=== PATIENT | male | born 1940 | race Caucasian/White ===

== ENCOUNTER 2018-03-31 11:17 | Inpatient (IN) | payer MEDICARE ==
[~2018-03-31] VITALS: Ht 175.3 cm; Wt 81.2 kg
[~2018-03-31 11:17] MED LIST: ASPI-983 PO; ASPI-999 PO; ATOR10TA66 PO; CYAN100015 SL; FOLI0.8C PO; METO-351 PO; MULT1TAB69 PO
[2018-03-31 12:00] VITALS: BP 116/82
--- OUTSIDE RECORDS SUMMARY | 2018-03-31 12:10 | XMS REPORT | Continuity of Care Document ---
Author Author [facility] Organization [facility] Address Unknown Phone Unavailable Allergies Active Description Code Type Severity Reaction Onset Reported/Identified Relationship to Patient Clinical Status Yes No Known Drug Allergies [id number] Drug Allergy Unknown N/A 01/21/2011 Medications There is no data. Problems Date Dx Coded Attending Type Code Diagnosis Diagnosed By 01/21/2011 Ot V16.0 FAMILY HX-GI MALIGNANCY 01/21/2011 Ot V58.69 OTH MED,LT, CURRENT USE 01/21/2011 Ot V76.51 SCREEN MAL NEOP-COLON 07/12/2015 Ot 722.10 07/12/2015 Ot 722.52 07/12/2015 Ot 719.46 07/13/2015 Ot 722.10 07/13/2015 Ot 722.52 07/13/2015 Ot 719.46 07/13/2015 Ot 722.10 07/13/2015 Ot 722.52 07/13/2015 Ot 719.46 08/29/2015 DILSHAD MÁRQUEZ MD, FACC FACP CCDS Ot I10 ESSENTIAL (PRIMARY) HYPERTENSION 08/29/2015 DILSHAD MÁRQUEZ MD, FACC FACP CCDS Ot I25.10 ATHSCL HEART DISEASE OF [place] CORONARY 08/29/2015 DILSHAD MÁRQUEZ MD, FACC FACP CCDS Ot 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[place] 08/29/2015 DILSHAD MÁRQUEZ MD, FACC FACP CCDS Ot R00.0 TACHYCARDIA, UNSPECIFIED 08/29/2015 DILSHAD MÁRQUEZ MD, FACC FACP CCDS Ot R91.8 OTHER NONSPECIFIC ABNORMAL FINDING OF [place] 08/29/2015 DILSHAD MÁRQUEZ MD, FACC FACP CCDS Ot Z79.899 OTHER SENIOR CARE (CURRENT) DRUG THERAPY 09/07/2015 DILSHAD MÁRQUEZ MD, FACC FACP CCDS Ot E78.0 09/07/2015 DILSHAD MÁRQUEZ MD, FACC FACP CCDS Ot E80.6 09/07/2015 YULISA MD FACC, ALI FACP CCDS Ot I10 09/07/2015 YULISA VEGA FAC, ALI FACP CCDS Ot R00.0 09/07/2015 YULISA VEGA FAC, ALI FACP CCDS Ot R74.8 09/07/2015 YULISA VEGA FAC, ALI FACP CCDS Ot I10 09/07/2015 YULISA VEGA FACC, ALI FACP CCDS Ot I25.10 09/07/2015 YULISA VEGA [facility], ALI FACP CCDS Ot I25.84 09/07/2015 UYLISA VEGA [facility], ALI FACP CCDS Ot R00.0 09/07/2015 YULISA VEGA [facility], ALI FACP CCDS Ot R91.8 09/07/2015 YULISA VEGA [facility], ALI FACP CCDS Ot Z79.899 09/26/2015 YULISA VEGA [facility], ALI FACP CCDS Ot E78.0 09/26/2015 YULISA VEGA [facility], ALI FACP CCDS Ot E80.6 09/26/2015 YULISA VEGA [facility], ALI FACP CCDS Ot I10 09/26/2015 YULISA VEGA [facility], ALI FACP CCDS Ot R00.0 09/26/2015 YULISA VEGA [facility], ALI FACP CCDS Ot R74.8 02/20/2016 Ot 722.10 LUMBAR DISC DISPLACEMENT 02/20/2016 Ot 722.52 LUMB/ LUMBOSAC DISC DEGEN 02/20/2016 Ot 719.46 JOINT PAIN-L /LEG 02/20/2016 ARIANNA VEGA, LJ R Ot R07.9 CHEST PAIN, UNSPECIFIED 02/20/2016 YULISA DAO, ALI FACP CCDS Ot E78.0 PURE HYPERCHOLESTEROLEMIA 02/20/2016 YULISA DAO, ALI FACP CCDS Ot E80.6 OTHER DISORDERS OF BILIRUBIN METABOLISM 02/20/2016 YULISA DAO, ALI FACP CCDS Ot I10 ESSENTIAL (PRIMARY) HYPERTENSION 02/20/2016 YULISA DAO, ALI FACP CCDS Ot R00.0 TACHYCARDIA, UNSPECIFIED 02/20/2016 YULISA DAO, ALI FACP CCDS Ot R74.8 ABNORMAL LEVELS OF OTHER SERUM ENZYMES 02/20/2016 YULISA DAO, ALI FACP CCDS Ot E78.0 PURE HYPERCHOLESTEROLEMIA 02/20/2016 YULISA DAO, ALI FACP CCDS Ot E80.6 OTHER DISORDERS OF BILIRUBIN METABOLISM 02/20/2016 YULISA VEGA [facility], ALI FACP CCDS Ot I10 ESSENTIAL (PRIMARY) HYPERTENSION 02/20/2016 YULISA VEGA [facility], ALI FACP CCDS Ot R00.0 TACHYCARDIA, UNSPECIFIED 02/20/2016 YULISA VEGA [facility], ALI FACP CCDS Ot R74.8 ABNORMAL LEVELS OF OTHER SERUM ENZYMES 02/20/2018 LJ KELLER MD R Ot R07.9 CHEST PAIN, UNSPECIFIED 02/20/2018 YULISA VEGA [facility], ALI FACP CCDS Ot E78.0 PURE HYPERCHOLESTEROLEMIA 02/20/2018 YULISA VEGA [facility], ALI FACP CCDS Ot E80.6 OTHER DISORDERS OF BILIRUBIN METABOLISM 02/20/2018 YULISA VEGA [facility], ALI FACP CCDS Ot I10 ESSENTIAL (PRIMARY) HYPERTENSION 02/20/2018 YULISA VEGA [facility], ALI FACP CCDS Ot R00.0 TACHYCARDIA, UNSPECIFIED 02/20/2018 YULISA VEGA [facility], ALI FACP CCDS Ot R74.8 ABNORMAL LEVELS OF OTHER SERUM ENZYMES 02/20/2018 YULISA VEGA [facility], ALI FACP CCDS Ot E78.0 PURE HYPERCHOLESTEROLEMIA 02/20/2018 YULISA VEGA [facility], ALI FACP CCDS Ot E80.6 OTHER DISORDERS OF BILIRUBIN METABOLISM 02/20/2018 YULISA VEGA [facility], ALI FACP CCDS Ot I10 ESSENTIAL (PRIMARY) HYPERTENSION 02/20/2018 YULISA VEGA [facility], ALI FACP CCDS Ot R00.0 TACHYCARDIA, UNSPECIFIED 02/20/2018 YULISA VEGA [facility], ALI FACP CCDS Ot R74.8 ABNORMAL LEVELS OF OTHER SERUM ENZYMES 02/23/2018 LJ KELLER MD Ot J90 PLEURAL EFFUSION, NOT ELSEWHERE CLASSIFI 02/23/2018 LJ KELLER MD Ot J98.11 ATELECTASIS 02/23/2018 LJ KELLER MD Ot K57.30 DVRTCLOS OF LG INT W/O PERFORATION OR AB 02/23/2018 LJ KELLER MD Ot K76.0 FATTY (CHANGE OF) LIVER, NOT ELSEWHERE C 02/23/2018 LJ KELLER MD Ot R18.8 OTHER ASCITES 02/23/2018 LJ KELLER MD Ot R85.89 OTH ABNORMAL FINDINGS IN SPECIMENS FROM Procedures There is no data. Results There is no data. Encounters ACCT No. Visit Date/Time Discharge Status Pt. Type Provider Facility Loc./Unit Complaint [id number] 02/20/2018 09:22:00 02/20/2018 23:59:59 CLS Outpatient LJ KELLER MD [facility] RAD ABN FINDINGS IN SPECIMENS FROM DIGESTIVE ORGANS [id number] 08/29/2015 09:05:00 08/29/2015 15:00:00 DIS Outpatient YULISA VEGA FACC, ALI FACP CCDS [facility] CATH WIDE COMPLEX TACHYCARDIA,HTN,HLP [id number] 08/25/2015 07:34:00 08/25/2015 23:59:59 CLS Outpatient YULISA VEGA FACC, ALI FACP CCDS [facility] RAD HYPERBILIRUBIN [id number] 08/18/2015 09:53:00 08/18/2015 23:59:59 CLS Outpatient YULISA VEGA FACC, ALI FACP CCDS [facility] CARD TACHYCARDIA [id number] 07/13/2015 07:12:00 07/13/2015 23:59:59 CLS Outpatient LJ KELLER MD [facility] CARD SOA,CHEST PAIN [id number] 04/28/2012 14:23:00 Document Registration [id number] 01/21/2011 09:11:00 Document Registration [id number] 12/26/2010 12:28:00 Document Registration
--- NOTE | 2018-03-31 12:51 | History & Physical-Hospitalist ---
History of Present Illness HPI/Chief Complaint The patient is a 77-year-old white male referred to the hospitalist service by Dr. Vázquez. He reported that the patient drank wine on a daily basis. He had advised him to stop some days months ago but that did not happen. He described ascites. When I asked the patient how long this had been coming on he said 2 or 3 months. His stated that this was in fact a year or more. He buys wine in 5 L boxes. She states those last about 3 days. He describes no other health problems. Date Seen 03/31/18 Time Seen by a Provider: 12:46 Attending Physician Juan M Reynoso MD PCP Lamonte Vázquez MD Referring Physician Date of Admission Mar 31, 2018 at 11:24 Home Medications & Allergies Home Medications Reviewed patient Home Medication Reconciliation performed by pharmacy medication reconciliations general service technician and/or nursing. Patients Allergies have been reviewed. Allergies Allergies Coded Allergies No Known Drug Allergies (Unverified01/21/11) Past Gbzyzju-Moytov-Mwwwfv Hx Past Med/Social Hx: Reviewed Nursing Past Med/Soc Hx Patient Social History Recent Foreign Travel: No Contact w/other who traveled: No Immunizations Up To Date Date of Influenza Vaccine: Apr 30, 2015 Review of Systems Constitutional: see HPI EENTM: no symptoms reported Respiratory: no symptoms reported Cardiovascular: no symptoms reported Gastrointestinal: other (distention) Genitourinary: no symptoms reported Musculoskeletal: no symptoms reported Skin: no symptoms reported Psychiatric/Neurological: No Symptoms Reported Physical Exam Physical Exam Vital Signs Capillary Refill : Height, Weight, BMI Height: 5'9.00" Weight: 179lbs. oz. 81.835346je; 26.43 BMI Method: General Appearance: Mild Distress Eyes: Bilateral Eye Normal Inspection HEENT: Normal ENT Inspection Neck: Normal Inspection Respiratory: Chest Non Tender, Lungs Clear, Normal Breath Sounds, No Accessory Muscle Use, No Respiratory Distress Cardiovascular: Regular Rate, Rhythm, No Edema, No Gallop, No JVD, No Murmur, Normal Peripheral Pulses Gastrointestinal: Other (the abdomen is distended and tight. A fluid wave is easily produced.) Back: Normal Inspection Extremity: Other Neurologic/Psychiatric: Alert, Oriented x3, No Motor/Sensory Deficits, Normal Mood/Affect Skin: Normal Color Results Results/Procedures Labs Patient resulted labs reviewed. Assessment/Plan Admission Diagnosis Alcoholic cirrhosis. 2.ascites. Admission Status: Inpatient Order (span 2 midnights) Reason for Inpatient Admission: Management and treatment of ascites Assessment and Plan 1.alcoholic cirrhosis and ascites. Plan: Lab studies. Initiation of spironolactone and diuretics JUAN M REYNOSO MD Mar 31, 2018 12:51
[2018-03-31 12:52] LABS: BASOPHILS % (AUTO) 1 % (0-10); EOSINOPHILS % (AUTO) 0 % (0-10); HEMATOCRIT 36 % (40-54); LYMPHOCYTES # (AUTO) 1.2 X 10^3 (1.0-4.0); LYMPHOCYTES % (AUTO) 19 % (12-44); MEAN CORPUSCULAR HEMOGLOBIN 39 PG (25-34); MEAN CORPUSCULAR HGB CONC 36 G/DL (32-36); MEAN CORPUSCULAR VOLUME 108 FL (80-99); MEAN PLATELET VOLUME 9.8 FL (7.4-10.4); MONOCYTES # (AUTO) 1.1 X 10^3 (0.0-1.0); MONOCYTES % (AUTO) 19 % (0-12); NEUTROPHILS # (AUTO) 3.7 X 10^3 (1.8-7.8); NEUTROPHILS % (AUTO) 61 % (42-75); PLATELET COUNT 219 10^3/uL (130-400); RED BLOOD COUNT 3.35 10^6/uL (4.35-5.85); RED CELL DISTRIBUTION WIDTH 11.7 % (10.0-14.5)
[2018-03-31 13:09] LABS: BAND NEUTROPHILS 1 %; BASOPHILS % (MANUAL) 0 %; EOSINOPHILS % (MANUAL) 0 %; LYMPHOCYTES % (MANUAL) 17 %; MONOCYTES % (MANUAL) 12 %; NEUTROPHILS % (MANUAL) 70 %
[2018-03-31 13:15] LABS: ALANINE AMINOTRANSFERASE 23 U/L (0-55); ALKALINE PHOSPHATASE 65 U/L (40-136); BILIRUBIN,TOTAL 1.5 MG/DL (0.1-1.0); BUN/CREATININE RATIO 15; CALCIUM 8.8 MG/DL (8.5-10.1); CARBON DIOXIDE 25 MMOL/L (21-32); CHLORIDE 101 MMOL/L (98-107); CREATININE SERUM 0.66 MG/DL (0.60-1.30); GFR ESTIMATED > 60; GLUCOSE 100 MG/DL (70-105); POTASSIUM 3.6 MMOL/L (3.6-5.0); SODIUM 139 MMOL/L (135-145); TOTAL PROTEIN 6.7 GM/DL (6.4-8.2)
[2018-03-31] MEDS ORDERED: FLU QUADRIvalent (5+ YOA) 2018-2019 (AFLURIA) 0.5 ML IM ONE (13:30)
[2018-03-31] MEDS ORDERED: METO-387 PO (14:16)
[2018-03-31] MEDS ORDERED: ASPI-983 PO (14:16)
[2018-03-31] MEDS ORDERED: VITA1CAP PO (14:16)
[2018-03-31 16:45] VITALS: BP 124/79
[2018-03-31 20:23] VITALS: BP 118/70
[2018-04-01 00:03] VITALS: BP 106/72
[2018-04-01 04:36] VITALS: BP 107/63
[2018-04-01 08:00] VITALS: BP 107/71
[2018-04-01] MEDS ORDERED: SPIRONOLACTONE 25 MG (ALDACTONE) TAB PO SCH (09:00)
[2018-04-01] MEDS ORDERED: FUROSEMIDE 40 MG/4 ML INJ (LASIX) IVP SCH (09:00)
[2018-04-01] MEDS ORDERED: ASPIRIN E.C. 81 MG (ECOTRIN) TAB PO SCH (09:45)
[2018-04-01 10:42] LABS: BASOPHILS % (AUTO) 1 % (0-10); EOSINOPHILS % (AUTO) 0 % (0-10); HEMATOCRIT 39 % (40-54); HEMOGLOBIN 13.5 G/DL (13.3-17.7); LYMPHOCYTES # (AUTO) 1.1 X 10^3 (1.0-4.0); LYMPHOCYTES % (AUTO) 20 % (12-44); MEAN CORPUSCULAR HEMOGLOBIN 38 PG (25-34); MEAN CORPUSCULAR HGB CONC 35 G/DL (32-36); MEAN CORPUSCULAR VOLUME 111 FL (80-99); MEAN PLATELET VOLUME 10.1 FL (7.4-10.4); MONOCYTES # (AUTO) 0.9 X 10^3 (0.0-1.0); MONOCYTES % (AUTO) 17 % (0-12); NEUTROPHILS # (AUTO) 3.4 X 10^3 (1.8-7.8); NEUTROPHILS % (AUTO) 62 % (42-75); PLATELET COUNT 250 10^3/uL (130-400); RED BLOOD COUNT 3.53 10^6/uL (4.35-5.85); RED CELL DISTRIBUTION WIDTH 12.1 % (10.0-14.5); WHITE BLOOD COUNT 5.4 10^3/uL (4.3-11.0)
--- NOTE | 2018-04-01 10:49 | Progress Note-Hospitalist ---
Subjective HPI/CC On Admission The patient is a 77-year-old white male referred to the hospitalist service by Dr. Vázquez. He reported that the patient drank wine on a daily basis. He had advised him to stop some days months ago but that did not happen. He described ascites. When I asked the patient how long this had been coming on he said 2 or 3 months. His stated that this was in fact a year or more. He buys wine in 5 L boxes. She states those last about 3 days. He describes no other health problems. Objective Exam Vital Signs Vital Signs Date Time Temp Pulse Resp B/P (MAP) Pulse Ox O2 Delivery O2 Flow Rate FiO2 04/01/18 08:00 99.1 113 20 107/71 (83) 95 Room Air Capillary Refill : Less Than 3 Seconds Results/Procedures Lab Laboratory Tests 03/31/18 12:46 04/01/18 10:25 Patient resulted labs reviewed. Clinical Quality Measures DVT/VTE Risk/Contraindication: Risk Factor Score Per Nursin RFS Level Per Nursing on Admit: 3=High TYESHA GUTIERREZ DO Apr 01, 2018 10:49
[2018-04-01 10:54] LABS: INR 1.3 (0.8-1.4); PROTHROMBIN TIME PATIENT 16.1 SEC (12.2-14.7)
[2018-04-01 10:59] LABS: ALANINE AMINOTRANSFERASE 22 U/L (0-55); ALBUMIN 3.1 GM/DL (3.2-4.5); ALKALINE PHOSPHATASE 65 U/L (40-136); BILIRUBIN,TOTAL 1.7 MG/DL (0.1-1.0); BUN/CREATININE RATIO 14; CALCIUM 8.9 MG/DL (8.5-10.1); CARBON DIOXIDE 24 MMOL/L (21-32); CHLORIDE 103 MMOL/L (98-107); CREATININE SERUM 0.79 MG/DL (0.60-1.30); GFR ESTIMATED > 60; GLUCOSE 202 MG/DL (70-105); POTASSIUM 3.2 MMOL/L (3.6-5.0); SODIUM 138 MMOL/L (135-145); TOTAL PROTEIN 6.9 GM/DL (6.4-8.2)
[2018-04-01] MEDS ORDERED: FOLIC ACID 1 MG TAB PO SCH (11:00)
[2018-04-01] MEDS ORDERED: MULTIVIT W/MINERALS TAB (THERAGRAN M) PO SCH (11:01)
--- NOTE | 2018-04-01 11:34 | Diagnostic Imaging Report ---
PROCEDURE: US Abdomen, limited. TECHNIQUE: Multiple realtime grayscale images were obtained over the abdomen in various projections. INDICATION: Ascites. FINDINGS: Sonographic interrogation was performed to evaluate ascites. There appears to be large amount of abdominal ascites. A marking was made in the right lower quadrant for paracentesis. IMPRESSION: Large abdominal ascites. Dictated by: Dictated on workstation # [id number]
[2018-04-01] MEDS ORDERED: KCL 10 MEQ TAB (MICRO K) PO NR (11:45)
--- NOTE | 2018-04-01 11:46 | Progress Note-Post Operative ---
Post-Operative Progess Note Surgeon (s)/Button Bradder (s) Surgeon MAMTA ALBERT MD Button Bradder: none Pre-Operative Diagnosis symptomatic ascites Post-Operative Diagnosis same Procedure & Operative Findings Date of Procedure 04/01/18 Procedure Performed/Findings paracentesis. Anesthesia Type local Estimated Blood Loss Estimated blood loss (mL): minimal Specimens/Packing Specimens Removed ascites fluid MAMTA ALBERT MD Apr 01, 2018 11:46 am
[2018-04-01] MEDS ORDERED: FURO-125 PO (11:53)
[2018-04-01] MEDS ORDERED: SPIR50TA PO (11:53)
--- NOTE | 2018-04-01 11:54 | Discharge Summary-Hospitalist ---
TYESHA GUTIERREZ DO 04/01/18 1154: Diagnosis/Chief Complaint Date of Admission Mar 31, 2018 at 11:24 Date of Discharge Discharge Date: Apr 01, 2018 Admission Diagnosis Alcoholic cirrhosis. 2.ascites. Discharge Diagnosis (1) Cirrhosis of liver with ascites Status: Chronic (2) Hypokalemia Status: Acute (3) Blood glucose elevated Status: Acute (4) Tachycardia Status: Chronic (5) Hypertension Status: Chronic (6) Alcoholism Status: Chronic (7) Coagulopathy Status: Chronic Discharge Summary Discharge Physical Exam Allergies: Coded Allergies: No Known Drug Allergies (Unverified , 01/21/11) Vitals & I&Os Vital Signs Date Time Temp Pulse Resp B/P (MAP) Pulse Ox O2 Delivery O2 Flow Rate FiO2 04/01/18 16:15 98.2 100 16 110/72 (85) 94 Room Air General Appearance: No Apparent Distress, WD/WN, Chronically ill Respiratory: Chest Non Tender, Lungs Clear, Normal Breath Sounds, No Accessory Muscle Use, No Respiratory Distress Cardiovascular: Regular Rate, Rhythm, No Edema, No Gallop, No JVD, No Murmur, Normal Peripheral Pulses Gastrointestinal: Soft Neurologic/Psychiatric: Alert, Oriented x3, No Motor/Sensory Deficits, Normal Mood/Affect Hospital Course Hospital course: patient had a brief hospital course. Patient was admitted for ascites and lab evaluation for new onset cirrhosis. ETOHism confirmed. USG obtained and Dr Zamora performed a paracentesis and removed 1.5 liters of straw- colored fluid. Pt had no evidence of SBP. Lasix and Aldactone were started and will be continued as outpt with close f/u with PCP. ETOHism cessation counseled. Labs (last 24 hrs) Laboratory Tests 04/01/18 10:25: White Blood Count 5.4, Red Blood Count 3.53L, Hemoglobin 13.5, Hematocrit 39L, Mean Corpuscular Volume 111H, Mean Corpuscular Hemoglobin 38H, Mean Corpuscular Hemoglobin Concent 35, Red Cell Distribution Width 12.1, Platelet Count 250, Mean Platelet Volume 10.1, Neutrophils (%) (Auto) 62, Lymphocytes (%) (Auto) 20 , Monocytes (%) (Auto) 17H, Eosinophils (%) (Auto) 0, Basophils (%) (Auto) 1, Neutrophils # (Auto) 3.4, Lymphocytes # (Auto) 1.1, Monocytes # (Auto) 0.9, Eosinophils # (Auto) 0.0, Basophils # (Auto) 0.0, Prothrombin Time 16.1H, INR Comment 1.3, Sodium Level 138, Potassium Level 3.2L, Chloride Level 103, Carbon Dioxide Level 24, Anion Gap 11, Blood Urea Nitrogen 11, Creatinine 0.79, Estimat Glomerular Filtration Rate > 60, BUN/Creatinine Ratio 14, Glucose Level 202H, Calcium Level 8.9, Corrected Calcium 9.6, Total Bilirubin 1.7H, Aspartate Amino Transf (AST/SGOT) 36H, Alanine Aminotransferase (ALT/SGPT) 22, Alkaline Phosphatase 65, Total Protein 6.9, Albumin 3.1L 04/01/18 11:45: Body Fluid Source PERITON, Body Fluid Color YELLOW, Body Fluid Appearance SLT CLDY, Body Fluid WBC 227, Body Fluid RBC 48, Body Fluid Polynuclear WBCs 5, Body Fluid Mononuclear WBCs 21, Body Fluid Lymphocytes 74, Body Fluid Other Cells 0, Body Fluid Total Protein 2.2, Body Fluid Albumin 1.2, Body Fluid Lactate Dehydrogenase 67 Microbiology 04/01/18 Gram Stain, Resulted Pending 04/01/18 Body Fluid Culture - Preliminary, [facility] Patient resulted labs reviewed. Pending Labs Discussion & Recommendations Discharge Planning: <30 minutes discharge planning Discharge Home Medications: Active Scripts Active Aldactone (Spironolactone) 50 Mg Tablet 50 Mg PO DAILY Lasix (Furosemide) 20 Mg Tablet 20 Mg PO DAILY Reported Vitamin B Complex 1 Each Capsule 1 Cap PO MOWEFR Aspirin EC (Aspirin) 81 Mg Tablet.dr 81 Mg PO MOWEFR Metoprolol Succinate 25 Mg Tab.er.24h 25 Mg PO DAILY Folic Acid 0.8 Mg Capsule 0.8 Mg PO MOWEFR Instructions to patient/family Please see electronic discharge instructions given to patient. Clinical Quality Measures DVT/VTE Risk/Contraindication: Risk Factor Score Per Nursin RFS Level Per Nursing on Admit: 3=High LETICIA ECHEVERRIA MEDICAL STUDENT 04/01/18 1341: Diagnosis/Chief Complaint Discharge Time: 13:00 Admission Diagnosis Alcoholic Cirrhosis Ascites Discharge Diagnosis Alcoholic Cirrhosis Ascites Tachycardia Hypokalemia Elevated blood glucose HTN (1) Cirrhosis of liver with ascites Status: Chronic (2) Tachycardia Status: Chronic (3) Blood glucose elevated Status: Acute (4) Hypokalemia Status: Acute (5) Hypertension Status: Chronic Discharge Summary Procedures/Consulations Surgery Discharge Physical Exam Allergies: Coded Allergies: No Known Drug Allergies (Unverified , 01/21/11) General Appearance: No Apparent Distress, WD/WN HEENT: Normal ENT Inspection Respiratory: Chest Non Tender, Lungs Clear, Normal Breath Sounds, No Accessory Muscle Use, No Respiratory Distress Cardiovascular: Regular Rate, Rhythm, No Edema, No Gallop, No JVD, No Murmur, Normal Peripheral Pulses Gastrointestinal: No Pulsatile Mass, Non Tender, Distended; No Guarding, No Tenderness Extremity: Normal Capillary Refill, Normal Range of Motion, Pedal Edema (3+) Skin: Normal Color, Warm/Dry Neurologic/Psychiatric: Alert, Oriented x3 Hospital Course Radiology Reviewed Date of Exam:04/01/18 US ABDOMEN LIMITED [id number] PROCEDURE: US Abdomen, limited. TECHNIQUE: Multiple realtime grayscale images were obtained over the abdomen in various projections. INDICATION: Ascites. FINDINGS: Sonographic interrogation was performed to evaluate ascites. There appears to be large amount of abdominal ascites. A marking was made in the right lower quadrant for paracentesis. IMPRESSION: Large abdominal ascites. Imaging: Reviewed Imaging Report Discussion & Recommendations Discharge Planning: <30 minutes discharge planning Patient is a 77 yo WM who was referred to the hospitalist service by his PCP Dr. Vázquez on 03/31/18. Beyond his abdomen he is generally well appearing and presents without other pain or complaint. He was started on spironolactone and lasix. Consult to Surgery, Dr. Hendricks, was made on 04/01 to drain the ascitic abdomen. He will be discharged today with the recommendation of a salt restrictive diet, spironolactone, lasix and instructions to f/u with Dr. Vázquez. Per his hospital record he is chronically tachycardic, will d/c with instructions to restart metoprolol. Patient developed mild hypokalemia during hospital stay, which was addressed. His blood sugar on 04/01 was elevated. Does not have prior diagnosis of DM. This should receive f/u with PCP. Discharge Condition at discharge Stable Problem Qualifiers (1) Cirrhosis of liver with ascites: Hepatic cirrhosis type: alcoholic cirrhosis Qualified Codes: K70.31 - Alcoholic cirrhosis of liver with ascites TYESHA GUTIERREZ DO Apr 01, 2018 11:54 LETICIA ECHEVERRIA MEDICAL STUDENT Apr 01, 2018 13:41
[2018-04-01 12:00] VITALS: BP 112/76
[2018-04-01 12:15] LABS: ALBUMIN,BODY FLUID 1.2 G/DL; LDH,BODY FLUID 67 U/L; TOTAL PROTEIN,BODY FLUID 2.2 G/DL
[2018-04-01 12:38] LABS: BODY FLUID SOURCE PERITON
[2018-04-01 12:42] LABS: BODY FLUID APPEARENCE SLT CLDY; BODY FLUID COLOR YELLOW; BODY FLUID RBC COUNT 48 /uL; BODY FLUID WBC TOTAL COUNT 227 /uL
[2018-04-01 13:15] LABS: BF OTHER CELLS 0 %; LYMPHOCYTES,BODY FLUID 74 %
--- NOTE | 2018-04-01 13:29 | CONSULTATION REPORT ---
DATE OF SERVICE: 04/01/2018 ATTENDING PRIMARY CARE PHYSICIAN: Dr. Vázquez. ADMITTING PHYSICIAN: Dr. Segundo. HISTORY OF PRESENT ILLNESS: The patient is a 77-year-old male who presented with abdominal distention. He reports that this has been first noticed approximately one year ago; however, has worsened significantly especially in the past few days. He has a positive fluid shift wave consistent with ascites. He also did have a CT scan of the abdomen performed in late 01/2018, which did show ascites as well. He does have a significant past history of alcohol and states that he quit recently. He reports that he drinks a significant amount of wine daily. On examination, he does have a distended abdomen with a positive fluid shift wave which is causing him to experience pressure on his diaphragm and difficulty in breathing on an intermittent basis. PAST MEDICAL HISTORY: Tachycardia. PAST SURGICAL HISTORY: Left knee arthroscopy and pilonidal cystectomy. ALLERGIES: No known drug allergies. MEDICATIONS: Metoprolol 25 mg daily, aspirin 81 mg daily, folic acid daily. SOCIAL HISTORY: Positive alcohol, he drinks significant alcohol with wine daily for many years. Negative smoke. FAMILY HISTORY: Noncontributory. VITAL SIGNS: Temperature 99.1, blood pressure 107/71, pulse 113, respirations 20, pulse ox 95% on room air. REVIEW OF SYSTEMS: Well-nourished male currently in no acute distress. He is not experiencing any shortness of breath, no difficulty breathing. He reports that with his abdominal distention, upon lying, he will have some shortness of breath on an intermittent basis. No cough or sputum production. No nausea, vomiting, no diarrhea or constipation, no red blood per rectum, no dark tarry stools. No fever, chills, no recent inadvertent weight loss. All other review of systems is negative. PHYSICAL EXAMINATION: CHEST: Clear. Good breath sounds bilaterally. HEART: Regular, no murmurs. EXTREMITIES: +2/3 bilateral lower extremity edema. Negative Homans sign. HEENT: No scleral icterus. NECK: No cervical lymphadenopathy. ABDOMEN: Distended, soft with a positive fluid shift wave. There is no peritonitis. SKIN: Warm, dry. LABORATORY DATA: WBC 5.4, hemoglobin 13.5, hematocrit 39, platelets 250, total bilirubin 1.7, albumin 3.1, INR 1.3. ASSESSMENT AND PLAN: A 77-year-old male with symptomatic ascites, most likely secondary to liver cirrhosis. At this time, it appears that his modified Child-Elmore classification is approximately 7, which is a class B. We will proceed with paracentesis and send the fluid off for analysis. We will also recommend continued medical management as prescribed earlier with salt restriction and cessation of alcohol as well as the diuretics with spironolactone and Lasix. We will proceed with a paracentesis as well for symptomatic control. Job ID: [id number] DocumentID: [id number] Dictated Date: 04/01/2018 12:06:54 Automotive Product Engineer Date: 04/01/2018 13:28:19 Dictated By: MAMTA ALBERT MD MTDD
--- NOTE | 2018-04-01 14:31 | OPERATIVE REPORT ---
DATE OF SERVICE: 04/01/2018 ATTENDING PRIMARY CARE PHYSICIAN: Lamonte Vázquez MD. ADMITTING PHYSICIAN: Dr. Segundo. PREPROCEDURE DIAGNOSIS: Symptomatic ascites. POSTPROCEDURE DIAGNOSIS: Symptomatic ascites. PROCEDURE: Paracentesis. SURGEON: Mamta Zamora MD. ANESTHESIA: Local. ESTIMATED BLOOD LOSS: Minimal. FINDINGS: Straw yellow transudative fluid. DISPOSITION: The patient tolerated the procedure well. INDICATIONS: The patient is a 77-year-old male, who presented with significant abdominal distention, which has become symptomatic. The patient and report that they first noticed some mild abdominal distention one year ago; however, this has increased over the year and in the past few weeks has increased significantly. He does have abdominal distention as well as bilateral lower extremity edema. Upon further questioning, he reports that he does drink a significant amount of wine on a daily basis for many years. Upon examination, he does have a firmly distended abdomen with a positive fluid shift wave consistent with ascites. DESCRIPTION OF PROCEDURE: The abdomen was prepped and draped in the standard surgical fashion. Before the procedure, an ultrasound evaluation was performed and marked in the right lower abdominal quadrant. A 1% lidocaine was used to anesthetize the skin, fascia, muscle layers as well as the peritoneal lining. A vertical skin incision was made using an 11-blade. The trocar and catheter were then advanced withdrawing of straw yellow transudative fluid. The catheter was then advanced over the trocar without any resistance. The catheter was then placed into tubing and gravity drainage bag. The catheter was then cleaned and covered with gauze followed by a large Op-Site. The patient tolerated the procedure well. We will send the fluid off for analysis. Once he is asymptomatic and significant amount of fluid has been drained, we will remove the catheter and he may be discharged home. Job ID: [id number] DocumentID: [id number] Dictated Date: 04/01/2018 12:09:52 Etcher Photoengraving Date: 04/01/2018 14:30:57 Dictated By: MAMTA ZAMORA MD
[2018-04-01 16:15] VITALS: BP 110/72
[2018-04-02] MEDS ORDERED: KCL 10 MEQ TAB (MICRO K) PO SCH (07:00)
== END 2018-04-01 19:03 | disposition home or self-care (01) | DRG 433 ==
LOC: 4TH 11:24
PROVIDERS: ADMIT Internal Medicine; ATTEND Internal Medicine
PROC: 0W9G30Z Drainage of Peritoneal Cavity with Drainage Device, Percutaneous Approach (ICD-10-PCS; principal; 2018-04-01)
DX: K70.31 Alcoholic cirrhosis of liver with ascites (principal); D68.9 Coagulation defect, unspecified; E87.6 Hypokalemia; R73.09 Other abnormal glucose; R00.0 Tachycardia, unspecified; I10 Essential (primary) hypertension; F10.20 Alcohol dependence, uncomplicated
CPT/HCPCS: 36415; 76705; 80053; 82042; 83615; 84157; 85007; 85025; 85027; 85610; 87070; 87205; 89051

== ENCOUNTER → 2018-12-15 | Outpatient (CLI) | payer MEDICARE ==
[~2018-12-15] MED LIST changes: +CATHETER FLUSH 10 ML SYR IV PRN; +FURO-125 PO; +METO-387 PO; +SPIR50TA PO; +VITA1CAP PO
[2018-12-15 13:33] VITALS: BP 150/85
--- NOTE | 2018-12-15 21:15 | STRESS TEST ---
DATE OF SERVICE: 12/15/2018 RESTING AND POSTEXERCISE TECHNETIUM-99M TETROFOSMIN SPECT CT IMAGING ORDERING PHYSICIAN: DAWSON Nelson. OTHER PHYSICIAN: DILSHAD MÁRQUEZ MD, MACIEL, FACP, FACC. CLINICAL DIAGNOSES: Coronary artery disease. Baseline images were carried out after injection of 10.35 mCi of technetium-99m Tetrofosmin. This was followed by exercise on a treadmill. Blood pressure and heart rate responses to exercise were normal. A 31 mCi of technetium-99m Tetrofosmin were injected after the patient indicated that he would not be able for more than another minute. The test was stopped on account of fatigue. There was no significant ST segment deviation. There was no significant arrhythmia. The patient attained a workload of 5.4 METs. He attained 95% of maximum predicted heart rate. Review of images at rest and following stress does not indicate any significant perfusion defects consistent with significant myocardial ischemia or infarction. Some attenuation is seen of the diaphragmatic wall of the left ventricle, both at rest and following exercise. Gated images show normal regional wall motion, including the diaphragmatic wall of the left ventricle. Left ventricular ejection fraction is calculated to be 72%. Left ventricular end diastolic volume is 44 mL. TID is absent (1.02). CONCLUSIONS: 1. No evidence of significant myocardial ischemia or infarction on this study, but the patient exhibited low exercise capacity. 2. Normal regional wall motion. 3. Normal global left ventricular systolic function with a calculated ejection fraction of 72%. Job ID: [id number] DocumentID: [id number] Dictated Date: 12/15/2018 18:51:48 Dry Cleaning Teacher Date: 12/15/2018 21:15:21 Dictated By: DILSHAD MÁRQUEZ MD, MACIEL, FACP, FACC,
== END ==
LOC: CARD 11:34
PROVIDERS: ATTEND Nurse Practitioner Family
DX: I25.10 Atherosclerotic heart disease of native coronary artery without angina pectoris (principal); I10 Essential (primary) hypertension
CPT/HCPCS: 78452; 93017

== ENCOUNTER 2020-02-11 05:52 | Outpatient (CLI) | payer MEDICARE ==
[~2020-02-11] VITALS: Ht 177 cm; Wt 90.9 kg
[~2020-02-11 05:52] MED LIST changes: -CATHETER FLUSH 10 ML SYR IV PRN; -METO-387 PO; +MTP25TSR PO; +MULT-567 PO; -MULT1TAB69 PO
[2020-02-11] MEDS ORDERED: MILK175T PO (13:47)
[2020-02-11] MEDS ORDERED: VITA1CAP PO (13:47)
[2020-02-11] MEDS ORDERED: GLUT5POW MC (13:47)
[2020-02-11] MEDS ORDERED: IBUP-2185 PO (13:47)
[2020-02-11] MEDS ORDERED: ASCO100099 PO (13:47)
== END 2020-02-11 13:51 | disposition home or self-care (01) ==
LOC: PREOP 05:52
PROVIDERS: ATTEND Specialist
DX: Z01.818 Encounter for other preprocedural examination (principal)

== ENCOUNTER 2020-02-18 06:30 | Day surgery (SDC) | payer MEDICARE ==
[~2020-02-18] VITALS: Ht 177 cm
[~2020-02-18 06:30] MED LIST changes: +ASCO100099 PO; +GLUT5POW MC; +IBUP-2185 PO; +MILK175T PO
[2020-02-18 06:37] VITALS: BP 119/72
[2020-02-18] MEDS ORDERED: POVIDONE (BETADINE) OPHTH SOLN 5% 30 ML OP ONE (06:45)
[2020-02-18] MEDS: TETRACAINE 0.5% OPHTH SOLN 4 ML BTL (SINGLE DOSE ONLY) OU PRN ×4 (06:50→07:15)
[2020-02-18] MEDS: CYCLOPENTOLATE 1% (CYCLOGYL) 2 ML DROPS OP SCH ×3 (07:00→07:15)
[2020-02-18] MEDS: PHENYLEPHRINE 10% OPHTH (NEO-SYN) 5 ML BTL OU SCH ×3 (07:00→07:15)
[2020-02-18] MEDS: LIDOCAINE PF 1% 2 ML VIAL IR PRN ×2 (07:45→08:13)
[2020-02-18] MEDS: TIMOLOL MALEATE 0.5% 5 ML (TIMOPTIC) BTL OU PRN ×2 (07:45→08:13)
[2020-02-18] MEDS: MOXIFLOXACIN OPHTH SOLN 5 MG/ML 0.3 ML SYRINGE OP ONE ×2 (07:45→08:13)
[2020-02-18] MEDS ORDERED: MIDAZOLAM 2 MG/2 ML (VERSED) VIAL ONE (07:50)
--- NOTE | 2020-02-18 07:59 | Ophthalmologist Pre-Op Note ---
Pre-Operative Progress Note H&P Reviewed The H&P was reviewed, patient examined and no changes noted. Date H&P Reviewed: Feb 18, 2020 Time H&P Reviewed: 07:59 Pre-Op Dx Cataract, Left Eye SARAH BETH PATEL MD Feb 18, 2020 07:59
[2020-02-18] MEDS ORDERED: acetaZOLAMIDE ER 500 MG CAP (DIAMOX SEQUELS) PO ONE (08:00)
--- NOTE | 2020-02-18 08:27 | Ophthalmology Operative Report ---
Cataract removal/placement IOL PREOPERATIVE DIAGNOSIS: Cataract Left Eye POSTOPERATIVE DIAGNOSIS: Cataract Left Eye PROCEDURE: Cataract removal and placement of posterior chamber implant, left eye SURGEON: Chadwick Patel ANESTHESIA: Topical with sedation COMPLICATIONS: None ESTIMATED BLOOD LOSS: Minimal DESCRIPTION OF PROCEDURE: After proper informed consent was obtained, the patient, a 79 male, was taken to the Operating Room and the left eye was anesthetized with tetracaine. The left eye was then prepped and draped in the usual manner. A wire lid speculum was placed. A paracentesis was made at the left hand position. Preservative free lidocaine was injected into the anterior chamber followed by viscoelastic. A clear corneal incision was made in the temporal position. A capsulorrhexis was preformed and the central nuclear and cortical material were removed. The posterior capsule was polished and an Pacheco 23.0 AU00T0 was placed into the capsular bag. The residual viscoelastic was aspirated and balanced saline solution was injected into the anterior chamber. Moxifloxacin was injected into the anterior chamber. The wound was checked and found to be water tight. The patient tolerated the procedure well without complications. CHADWICK PATEL MD Feb 18, 2020 08:27
[2020-02-18 08:40] VITALS: BP 120/77
--- NOTE | 2020-02-18 10:55 | Anesthesia-General Post-Op ---
MAC Patient Condition Mental Status/LOC: Same as Preop Cardiovascular: Satisfactory Nausea/Vomiting: Absent Respiratory: Satisfactory Pain: Controlled Complications: Absent Post Op Complications Complications None Follow Up Care/Instructions Patient Instructions None needed. Anesthesiology Discharge Order Discharge Order Patient is doing well, no complaints, stable vital signs, no apparent adverse anesthesia problems. No complications reported per nursing. APRIL MATTHEW CRNA Feb 18, 2020 10:55
== END 2020-02-18 08:40 | disposition home or self-care (01) ==
LOC: SDC 06:30
PROVIDERS: ATTEND Specialist
DX: H25.12 Age-related nuclear cataract, left eye (principal); I10 Essential (primary) hypertension; M19.91 Primary osteoarthritis, unspecified site; Z87.891 Personal history of nicotine dependence; Z79.82 Long term (current) use of aspirin; Z79.899 Other long term (current) drug therapy
CPT/HCPCS: 66984; V2632

== ENCOUNTER 2020-02-25 06:42 | Day surgery (SDC) | payer MEDICARE ==
[~2020-02-25] VITALS: Ht 172 cm; Wt 88.6 kg
[2020-02-25 06:45] VITALS: BP 109/74
[2020-02-25] MEDS: PHENYLEPHRINE 10% OPHTH (NEO-SYN) 5 ML BTL OU PRN ×2 (07:02→07:12)
[2020-02-25] MEDS: TETRACAINE 0.5% OPHTH SOLN 4 ML BTL (SINGLE DOSE ONLY) OU PRN ×2 (07:02→07:12)
[2020-02-25] MEDS: TROPICAMIDE 1% OPH SOLN (MYDRIACYL) 15 ML BTL OU PRN ×2 (07:02→07:12)
[2020-02-25 07:35] VITALS: BP 109/74
--- NOTE | 2020-02-25 07:46 | Ophthalmologist Pre-Op Note ---
Pre-Operative Progress Note H&P Reviewed The H&P was reviewed, patient examined and no changes noted. Date H&P Reviewed: Feb 25, 2020 Time H&P Reviewed: 07:33 Pre-Op Dx Secondary Cataract, Right Eye SARAH BETH PATEL MD Feb 25, 2020 07:46
--- NOTE | 2020-02-25 07:47 | Ophthalmology Operative Report ---
YAG Capsulotomy PREOPERATIVE DIAGNOSIS: Secondary Cataract Right Eye POSTOPERATIVE DIAGNOSIS: Secondary Cataract Right Eye PROCEDURE: YAG Capsulotomy, right eye SURGEON: Chadwick Patel ANESTHESIA: Topical anesthesia COMPLICATIONS: None ESTIMATED BLOOD LOSS: Minimal DESCRIPTION OF PROCEDURE: After proper informed consent was obtained, the patient's, a 79 male, right eye received one drop of Tropicamide and one drop of Tetracaine. The patient was then placed at the YAG laser and using a power of [3.8 ] millijoules and [17 ] bursts were used to fashion a central capsulotomy. The patient tolerated the procedure well without complications. CHADWICK PATEL MD Feb 25, 2020 07:47
== END 2020-02-25 07:35 | disposition home or self-care (01) ==
LOC: SDC 06:42
PROVIDERS: ATTEND Specialist
DX: H26.491 Other secondary cataract, right eye (principal); Z80.3 Family history of malignant neoplasm of breast; Z83.3 Family history of diabetes mellitus

== ENCOUNTER 2021-02-14 05:38 | Outpatient (CLI) | payer MEDICARE ==
[~2021-02-14] VITALS: Ht 172.7 cm; Wt 100.6 kg
[~2021-02-14 05:38] MED LIST changes: +ASPI-1238 PO; -ASPI-983 PO
== END 2021-02-14 10:17 | disposition home or self-care (01) ==
LOC: PREOP 05:38
PROVIDERS: ATTEND Surgery
DX: Z01.818 Encounter for other preprocedural examination (principal)

== ENCOUNTER 2021-02-21 10:18 | Day surgery (SDC) | payer MEDICARE ==
[~2021-02-21] VITALS: Ht 172.7 cm; Wt 100.6 kg
[2021-02-21] MEDS ORDERED: LACTATED RINGERS 1,000 ML IV STA (10:27)
[2021-02-21] MEDS ORDERED: LACTATED RINGERS 1,000 ML IV ONE (10:29)
[2021-02-21] MEDS ORDERED: LIDOCAINE JELLY 2% 6 ML SYRINGE MM PRN (10:30)
[2021-02-21 10:54] VITALS: BP 127/72
--- NOTE | 2021-02-21 11:44 | Progress Note-Pre Operative ---
Pre-Operative Progress Note H&P Reviewed The H&P was reviewed, patient examined and no changes noted. Date Seen by Provider: Feb 21, 2021 Time Seen by Provider: 11:30 Date H&P Reviewed: Feb 21, 2021 Time H&P Reviewed: 11:30 Pre-Operative Diagnosis: screening MAMTA Ha MD Feb 21, 2021 11:44
[2021-02-21] MEDS ORDERED: ONDANSETRON 4 MG (ZOFRAN) ORAL DISSOLVE TAB PO PRN (11:45)
[2021-02-21] MEDS ORDERED: ONDANSETRON 4 MG/2 ML (SDV) Z0FRAN IVP PRN (11:45)
--- NOTE | 2021-02-21 11:45 | Discharge Inst-Surgical ---
D/C Lap Instructions-[place] Follow Up Activity as tolerated High Fiber Diet 25g or more per day Avoid Alcohol, Caffeine, Spicy [place] and Acid foods. Drink 64 fluid oz or more of fluids per day. Symptoms to Report: Fever over 101 degree F, Nausea/Vomiting If any problems/questions: Contact your physician or go to Emergency Room MAMTA ALBERT MD Feb 21, 2021 11:45
[2021-02-21] MEDS ORDERED: PROPOFOL INJECTION 50 ML IV ONE (12:11)
[2021-02-21 13:00] VITALS: BP 103/66
[2021-02-21 13:05] VITALS: BP 111/66
[2021-02-21 13:10] VITALS: BP 111/66
--- NOTE | 2021-02-21 13:10 | Anesthesia-General Post-Op ---
MAC Patient Condition Mental Status/LOC: Same as Preop Cardiovascular: Satisfactory Nausea/Vomiting: Absent Respiratory: Satisfactory Pain: Controlled Complications: Absent Post Op Complications Complications None Follow Up Care/Instructions Patient Instructions None needed. Anesthesiology Discharge Order Discharge Order Patient is doing well, no complaints, stable vital signs, no apparent adverse anesthesia problems. No complications reported per nursing. ELENA DAVIS CRNA Feb 21, 2021 13:10
[2021-02-21 13:26] VITALS: BP 115/68
--- NOTE | 2021-02-21 17:23 | OPERATIVE REPORT ---
DATE OF SERVICE: 02/21/2021 ATTENDING PRIMARY CARE PHYSICIAN: Yadira Zelaya MD in [place], [place]. PREOPERATIVE DIAGNOSIS: Screening colonoscopy. POSTOPERATIVE DIAGNOSES: Mild chronic stage II external and internal hemorrhoids, mild sigmoid diverticulosis, small hyperplastic polyp of the sigmoid colon. PROCEDURE: Colonoscopy with polypectomy with destruction using a biopsy forceps and electrocautery. SURGEON: Mamta Albert MD. ANESTHESIA: Monitored anesthesia care. ESTIMATED BLOOD LOSS: Minimal. FINDINGS: Mild chronic stage II external and internal hemorrhoids, mild sigmoid diverticulosis, small hyperplastic polyp of the sigmoid colon. DISPOSITION: The patient tolerated the procedure well. INDICATIONS: The patient is a 80-year-old male known to us. We had seen him 03/2018 for symptomatic ascites, likely secondary to liver cirrhosis. At that time, he had been drinking approximately half a liter of red wine daily for several years. He was referred over to us in need of a colonoscopy. His last colonoscopy was approximately 10 years ago and believes this to be normal. He does not report any major issues with diarrhea nor constipation as well as no red blood per rectum nor any dark tarry stools. He also does not report any family history of colon cancer. DESCRIPTION OF PROCEDURE: The patient was brought to the endoscopy suite, laid in left lateral decubitus position. After adequate IV pain and sedative medications and monitored anesthesia care, a digital rectal examination was performed. Mild chronic stage II external and internal hemorrhoids were identified, which were not actively edematous nor inflamed and no bleeding. Normal sphincter tone was felt and there were no palpable masses. Prostate gland was palpable and appeared normal. The endoscope was then intubated to the anus and rectum gently insufflated. The endoscope was then advanced through the valves of Mark of the rectum with no polyps or any neoplasms identified. Through the sigmoid colon, a very mild sigmoid diverticulosis identified. There was also a very small hyperplastic polyp approximately 2 mm in size, which was biopsied and destroyed using forceps and electrocautery. The endoscope was then advanced to the remainder of the descending, transverse, ascending colon and cecum, which were normal. There were no polyps or any neoplasms. There were no other lesions identified. The endoscope was then slowly withdrawn while taking a second look and suctioning of residual air with no additional findings. The patient tolerated the procedure well. We will recommend a high fiber diet with at least 30 grams of fiber daily as well as significant amounts of water to promote soft stools on a daily basis. If he is asymptomatic, he does not need another colonoscopy for another 10 years. Job ID: [id number] DocumentID: [id number] Dictated Date: 02/21/2021 13:03:21 Finisher Merchant Products Date: 02/21/2021 17:22:16 Dictated By: MAMTA ALBERT MD
== END 2021-02-21 13:30 | disposition home or self-care (01) ==
LOC: ENDO 10:18
PROVIDERS: ATTEND Surgery
DX: Z12.11 Encounter for screening for malignant neoplasm of colon (principal); D12.5 Benign neoplasm of sigmoid colon; K64.4 Residual hemorrhoidal skin tags; K64.1 Second degree hemorrhoids; K57.30 Diverticulosis of large intestine without perforation or abscess without bleeding; Z79.899 Other long term (current) drug therapy; Z87.891 Personal history of nicotine dependence

== ENCOUNTER → 2021-07-13 | Outpatient (CLI) | payer MEDICARE ==
--- NOTE | 2021-07-13 10:33 | Diagnostic Imaging Report ---
INDICATION: Ascites. PROCEDURE: Ultrasound abdomen complete. TECHNIQUE: Multiple real-time grayscale images were obtained of the abdomen in various projections. Overall quality of the study is somewhat limited due to overlying bowel gas. Liver is normal in size at 16.5 cm. No discrete liver mass is detected. Portal vein is patent and shows normal direction of flow. Gallbladder contains numerous stones. Gallbladder wall thickness is borderline at approximately 3 mm. No pericholecystic fluid or biliary ductal dilatation is identified. The majority of the pancreas is obscured by bowel gas. The spleen is normal in size at 10.2 cm. The spleen contains multiple calcified granulomas. Aorta is nonaneurysmal. IVC is patent. Both the right and left kidneys show normal cortical thickness and echogenicity. No calculi or hydronephrosis is seen. There is no ascites. IMPRESSION: 1. Cholelithiasis with borderline gallbladder wall thickening. If there is concern for acute cholecystitis, HIDA scan may be useful for further evaluation. No other significant abnormality is seen. Dictated by: Dictated on workstation # [id number]
== END ==
LOC: RAD 09:00
PROVIDERS: ATTEND Nurse Practitioner Family
DX: K80.20 Calculus of gallbladder without cholecystitis without obstruction (principal)
CPT/HCPCS: 76700

== ENCOUNTER → 2021-09-25 | Outpatient (CLI) | payer MEDICARE | LOC: CARD 13:00 | PROVIDERS: ATTEND Internal Medicine Cardiovascular Disease | DX: I08.3 Combined rheumatic disorders of mitral, aortic and tricuspid valves (principal) | CPT/HCPCS: 93306 ==

== ENCOUNTER → 2021-10-02 | Outpatient (CLI) | payer MEDICARE ==
[~2021-10-02] VITALS: Ht 175.3 cm; Wt 99.0 kg
[~2021-10-02] MED LIST changes: +HYDR-3817 PO
== END ==
LOC: PREOP 05:33
PROVIDERS: ATTEND Surgery
DX: Z01.818 Encounter for other preprocedural examination (principal)

== ENCOUNTER 2021-10-04 09:23 | Day surgery (SDC) | payer MEDICARE ==
[2021-10-04] VITALS (11 sets, daily range): BP systolic 90–118; BP diastolic 49–87
[~2021-10-04] VITALS: Ht 175.3 cm; Wt 99.0 kg
[~2021-10-04 09:23] MED LIST changes: -HYDR-3817 PO
[2021-10-04] MEDS ORDERED: HYDR-3817 PO (09:50)
--- NOTE | 2021-10-04 09:50 | Discharge Inst-Surgical ---
D/C Lap Instructions-KID[facility] Reconcile Patient Problems Problems Reviewed?: Yes New, Converted, or Re-Newed RX: RX on Chart Follow Up Appt in 2 weeks Activity as tolerated No driving for 24 hours No driving while on pain medications Incentive Spirometry use every 2 hours while awake Regular Diet Symptoms to Report: Fever over 101 degree F, Nausea/Vomiting Infection Signs and Symptoms to report: Increased redness, Foul odor of wound, Increased drainage Bathing instructions: May shower Operative Area Clean/Dry; Keep incision clean/dry If any problems/questions: Contact your physician or go to Emergency Room JUANITA GARCIA APRN Oct 04, 2021 09:50
--- NOTE | 2021-10-04 09:52 | Progress Note-Pre Operative ---
Pre-Operative Progress Note H&P Reviewed The H&P was reviewed, patient examined and no changes noted. Date Seen by Provider: Oct 04, 2021 Time Seen by Provider: 09:50 Date H&P Reviewed: Oct 04, 2021 Time H&P Reviewed: 09:45 Pre-Operative Diagnosis: Chronic calculous cholecystitis JUANITA GARCIA EEO OFFICER Oct 04, 2021 09:51
[2021-10-04] MEDS ORDERED: HYDROcodone/APAP 5 MG/325 MG (LORTAB) TAB PO ONE (10:00)
[2021-10-04] MEDS ORDERED: ACETAMINOPHEN 325 MG TABLET PO PRN (10:00)
[2021-10-04] MEDS ORDERED: ONDANSETRON 4 MG/2 ML (SDV) Z0FRAN IVP PRN ×2 (10:00→14:15)
[2021-10-04] MEDS ORDERED: morphine INJ 10 MG/ML 1ML (SYR OR VIAL) IVP PRN (10:00)
[2021-10-04] MEDS: LACTATED RINGERS 1,000 ML IV PRN ×2 (10:05→13:46)
[2021-10-04] MEDS ORDERED: ceFAZolin 2 GM IV Premixed 50 ML IV ONE (10:15)
[2021-10-04] MEDS ORDERED: LIDOCAINE/EPI 2% 1:100,00 (XYLOCAINE) 20 ML VIAL ONE (11:48)
[2021-10-04] MEDS ORDERED: MIDAZOLAM 2 MG/2 ML (VERSED) VIAL ONE (12:30)
[2021-10-04] MEDS ORDERED: fentaNYL INJ 100 MCG/2 ML AMP ONE (12:30)
[2021-10-04] MEDS ORDERED: ROCURONIUM 10 MG/ML 5 ML SYRINGE IV ONE (12:30)
[2021-10-04] MEDS ORDERED: SEVOFLURANE (ULTANE) 15 ML INHAL SOLN ONE ×2 (12:30→13:53)
[2021-10-04] MEDS ORDERED: proPOfol 200 MG/20 ML (DIPRIVAN) VIAL IV ONE (12:30)
[2021-10-04] MEDS ORDERED: LIDOCAINE PF 2% 5 ML (XYLOCAINE) VIAL ONE (12:30)
[2021-10-04] MEDS ORDERED: PHENYLEPHRINE 100 MCG/ML 10 ML (ANESTHESIA) SYR ONE (12:56)
[2021-10-04] MEDS ORDERED: NEOSTIGMINE 3 MG/3 ML VIAL ONE (13:55)
[2021-10-04] MEDS ORDERED: GLYCOPYRROLATE 0.2 MG/ML (ROBINUL) 2 ML VIAL ONE (13:55)
--- NOTE | 2021-10-04 14:04 | Progress Note-Post Operative ---
Post-Operative Progess Note Surgeon (s)/Deadener (s) Surgeon MAMTA ALBERT MD Deadener: rian lisa HR ADVISOR Pre-Operative Diagnosis Chronic calculous cholecystitis Post-Operative Diagnosis ascites, liver cirrhosis, chronic calculous cholecystitis. Procedure & Operative Findings Date of Procedure 10/04/21 Procedure Performed/Findings dx laparoscopy, laparoscopic cholecystectomy, evacuation ascites. Anesthesia Type get Estimated Blood Loss Estimated blood loss (mL): minimal Specimens/Packing Specimens Removed gallbladder MAMTA ALBERT MD Oct 04, 2021 14:04
--- NOTE | 2021-10-04 14:06 | Anesthesia-General Post-Op ---
General Patient Condition Mental Status/LOC: Same as Preop Cardiovascular: Satisfactory Nausea/Vomiting: Absent Respiratory: Satisfactory Pain: Controlled Complications: Absent Post Op Complications Complications None Follow Up Care/Instructions Patient Instructions None needed. Anesthesia/Patient Condition Patient Condition Patient is doing well, no complaints, stable vital signs, no apparent adverse anesthesia problems. No complications reported per nursing. ELENA DAVIS CRNA Oct 04, 2021 14:06
[2021-10-04] MEDS ORDERED: MEPERIDINE (DEMEROL) INJ 50 MG/ML IVP ONE (14:15)
[2021-10-04] MEDS ORDERED: morphine INJ 10 MG/ML 1ML (SYR OR VIAL) IVP ONE (14:15)
[2021-10-04] MEDS ORDERED: HYDROmorphone 2 MG/ML VIAL (DILAUDID) IV ONE (14:15)
--- NOTE | 2021-10-04 16:48 | OPERATIVE REPORT ---
DATE OF SERVICE: 10/04/2021 ATTENDING PRIMARY CARE PHYSICIAN: Dr. Yadira Zelaya at the clinic in [place], [place]. PREOPERATIVE DIAGNOSES: Symptomatic ascites, liver cirrhosis, cholelithiasis, and hyperbilirubinemia. POSTOPERATIVE DIAGNOSES: Ascites, liver cirrhosis, chronic calculous cholelithiasis, 6 liters of ascites was evacuated. PROCEDURES PERFORMED: Diagnostic laparoscopy, evacuation of ascites, and laparoscopic cholecystectomy. SURGEON: Mamta Albert MD. PUBLIC RELATIONS SALES MARKETING: Jonathan Sinha APRN. ANESTHESIA: General endotracheal. ESTIMATED BLOOD LOSS: Minimal. FINDINGS: Ascites, liver cirrhosis, chronic calculous cholelithiasis, 6 liters of ascites was evacuated. DISPOSITION: The patient tolerated the procedure well. INDICATIONS FOR PROCEDURE: The patient is a 81-year-old male known to us. We had done an EGD and colonoscopy on him in 2019. Even at that time, he did show signs and symptoms of liver cirrhosis. He was found to have hyperbilirubinemia with a bilirubin at 5.2. He also has some abdominal discomfort in the right upper abdominal quadrant as well as abdominal distention, especially in the past four to five months. He did have a CT scan done recently, which did show cholelithiasis as well as a gallbladder wall thickening. DESCRIPTION OF PROCEDURE: The patient was brought to the operating room and laid supine on the table. After adequate IV pain and sedative medications and general endotracheal intubation, the abdomen was prepped and draped in a standard surgical fashion. A 0.5% Marcaine with epinephrine was used to anesthetize the overlying skin in the left upper abdominal quadrant and transverse skin incision made using 15 blade. A 0 silk suture was applied to the medial aspect incision for retraction and a Veress needle inserted with a low opening pressure of 0 mmHg and the abdomen was insufflated to 15 mmHg pressure. The Veress needle removed and a 5 mm XL trocar was placed followed by a 5 mm 45-degree angle laparoscope visualizing the peritoneal cavity. A four-quadrant abdominal exploration was performed. There was significant amount of ascites throughout the peritoneal cavity identified in the right subphrenic space as well as the pelvis. The patient also did have nodular liver cirrhosis. There was mild gallbladder wall thickening. We then proceeded with an aspiration of the ascites in a systematic fashion and approximately 6 liters was evacuated. Under direct visualization, we then proceeded to place a 10 mm supraumbilical port after the skin and peritoneal lining were anesthetized using 0.5% Marcaine with epinephrine and a transverse skin incision was made using a 15 blade. In a similar manner, a right upper abdominal quadrant 5 mm port was placed. The patient was then placed in a reverse Trendelenburg position as well as plane right side up, left side down. The fundus of the gallbladder was then retracted anteriorly and superiorly. The hepatoduodenal ligament was then dissected bluntly as well as using electrocautery on hook instrument as well as a [place] dissector. The entire critical view of safety was identified including the triangle of Calot as well as the cystic duct and artery as the only two structures going into the gallbladder as well as the cystic plate behind the proximal gallbladder. A timeout was then taken and the cystic duct and artery were then clipped proximally and distally and cut with EndoShears. The gallbladder was then dissected off the liver bed using a cautery with visualization of good hemostasis as well as no leaking ducts of Luschka. The gallbladder was removed through the 10 mm port site using an EndoCatch bag. The 10 mm port site fascia and peritoneum were then closed under direct visualization using a Stephen-Luis Manuel device and 0 Vicryl suture. The abdomen was then desufflated and the remaining ports were removed. All skin incisions were closed using 4-0 Monocryl running subcuticular sutures. Wounds were then cleaned and covered with Dermabond. The patient tolerated the procedure well. We will start IV normal pain medication as well as a clear liquid diet. Once he is tolerating clears, has good pain control with oral pain medications, and ambulating well, we will discharge him home where he will be instructed to do no heavy lifting or exertion for the next two weeks. Job ID: [id number] DocumentID: [id number] Dictated Date: 10/04/2021 14:08:32 Clam Dredge Boat Captain Date: 10/04/2021 16:47:47 Dictated By: MAMTA ALBERT MD
== END 2021-10-04 16:35 ==
LOC: SDC 09:23
PROVIDERS: ATTEND Surgery
DX: K80.10 Calculus of gallbladder with chronic cholecystitis without obstruction (principal); K82.8 Other specified diseases of gallbladder; R18.8 Other ascites; K74.69 Other cirrhosis of liver
CPT/HCPCS: 87081

== ENCOUNTER 2021-10-10 09:29 | Emergency (ER) | payer MEDICARE ==
[~2021-10-10] VITALS: Ht 175 cm; Wt 98.8 kg
[~2021-10-10 09:29] MED LIST changes: +HYDR-3817 PO
--- NOTE | 2021-10-10 10:05 | ED Integumentary General ---
General Chief Complaint: Skin/Wound Problems Stated Complaint: POST OP LEAKING BELLY BUTTON Source: patient, family Exam Limitations: no limitations (GA JOSEPH MED STUDENT) History of Present Illness Date Seen by Provider: Oct 10, 2021 Time Seen by Provider: 09:46 Initial Comments Mr. Torres is a 81 yo male with PMH cholecystectomy and paracentesis on 10/04, and ascites, that presents to ED today due to leaking from surgical incision and some new unsteadiness on his feet. Pt was having a bowel movement this morning when he notices fluid was shooting out of the incision. The fluid looks serous but family members are concerned about the amount of fluid and that it is soiling his clothes. They are also concerned about some possible redness around the surgical incision sites. Pt states he is not having pain. Family is also con cerned about a new unsteadiness he has while walking. They state he is a quite heavy drinker and drinks wine all day. He has had some wine this morning. (GA JOSEPH MED STUDENT) Allergies and Home Medications Allergies Coded Allergies: No Known Drug Allergies (Unverified , 10/04/21) Patient Home Medication List Home Medication List Reviewed: Yes (LUIS ANGEL OSBORNE MD) Glutathione (Glutathione-l) 5 Gm Powder, 5 GM MC DAILY, (Reported) Entered as Reported by: DEVON WILLIAM on 02/11/20 1347 Hydrocodone/Acetaminophen (Hydrocodone-Acetamin 7.5-325) 1 Each Tablet, 1 EACH PO Q4H PRN for PAIN-BREAKTHROUGH Prescribed by: JUANITA GARCIA on 10/04/21 0950 Metoprolol Succinate (Metoprolol Succinate) 25 Mg Tab.er.24h, 25 MG PO DAILY, (Reported) Entered as Reported by: BUCK JORGE on 03/31/18 1416 Milk Thistle (Milk Thistle) 175 Mg Tablet, 375 MG PO DAILY, (Reported) Entered as Reported by: DEVON WILLIAM on 02/11/20 1347 Spironolactone (Aldactone) 50 Mg Tablet, 50 MG PO DAILY Prescribed by: TYESHA GUTIERREZ on 04/01/18 1153 Vitamin B Complex (Vitamin B Complex) 1 Each Capsule, 1 EACH PO DAILY, (Reported) Entered as Reported by: DEVON WILLIAM on 02/11/20 1347 Review of Systems Review of Systems Constitutional: No chills, No fever EENTM: No hearing loss, No vision loss Respiratory: No cough, No short of breath Cardiovascular: No chest pain, No palpitations Gastrointestinal: No abdominal pain, No constipation, No diarrhea, No nausea, No vomiting Genitourinary: No dysuria, No hematuria Musculoskeletal: No back pain, No joint pain Skin: other (increased redness around surgical incisions, draining from lateral edge of umbilical uncision) Psychiatric/Neurological: Denies Headache, Denies Numbness (GA JOSEPH Stevia First STUDENT) Past Efnjune-Qwovoj-Nyopmd Hx Patient Social History Tobacco Use?: No Substance use?: No Alcohol Use?: Yes Alcohol type: Wine Alcohol Frequency: Daily Pt feels they are or have been: No (GA JOSEPH [employer]via First TRISTON) Immunizations Up To Date Influenza Vaccine Up-to-Date: Yes; Up-to-Date First/Initial COVID19 Vaccinat: 11/2020 Second COVID19 Vaccination Patrick: 12/2020 Third COVID19 Vaccination Date: 11/2020 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 Home (GA JOSEPH Stevia First TRISTON) Seasonal Allergies Seasonal Allergies: No (GA JOSEPH Stevia First TRISTON) Past Medical History Surgery/Hospitalization HX: cholecystectomy-10/09/21 had 3 l fluid removed at same time hx of ascites, cirrhosis of the liver, and htn Surgeries: No (LT KNEE ACL REPAIR, PILONDIAL CYSTECTOMY) Orthopedic, Tonsillectomy Respiratory: No Cardiac: Yes (TACHYCARDIA) Hypertension Neurological: No Genitourinary: No Gastrointestinal: Yes (LIVER DISEASE WITH ASCITES) Liver Disease/Jaundice Musculoskeletal: Yes Back Injury, Chronic Back Pain Endocrine: No HEENT: Yes (WEARS GLASSES) Loss of Vision: Denies Hearing Impairment: Denies Cancer: No Psychosocial: No Integumentary: No Blood Disorders: No Adverse Reaction/Blood Tranf: No (GA JOSEPH STUDENT) Physical Exam Vital Signs Vital Signs - First Documented 10/10/21 09:50 Temp 35.3 Pulse 85 Resp 18 B/P (MAP) 103/82 (89) Pulse Ox 99 (LUIS ANGEL OSBORNE MD) Vital Signs Capillary Refill : (GA JOSEPH MED STUDENT) General Appearance: WD/WN, no apparent distress HEENT: PERRL/EOMI, pharynx normal Cardiovascular: regular rate, rhythm, no edema, no murmur Respiratory: chest non-tender, lungs clear, normal breath sounds Gastrointestinal: normal bowel sounds, non tender, soft, other (Surgical incisions from cholecytectomy with normal post-operative bruising. There is some leakage form the edge of the umbilical incision, with pressure on the abdomen some serous fluid can be expressed. Minimal tenderness. ) Back: no vertebral tenderness, other (There is some bruising on the back on the R side that is painless to palpation. ) Extremities: non-tender, no pedal edema, no calf tenderness Neurologic/Psychiatric: alert, normal mood/affect, oriented x 3 Skin: normal color, warm/dry (GA JOSEPH MED STUDENT) Procedures/Interventions Other Wound Location Umbilical incision Progress The area to the left of the umbilical incision was cleaned with alcohol and anesthetized with approximately 1 mL lidocaine. The area was prepped with Betadine. A [id number]-[id number] suture was placed over the left lateral end of the incision. This suture was placed by Ga Joseph, MS 4 under my supervision. There was still some oozing of serous or ascites fluid after placing the first suture. A second izlsso-xg-yysjz suture was placed overlapping the first and just medial to the first by this provider. This seemed to stop the oozing. Nursing staff placed a dressing over the incision and sutures. (LUIS ANGEL OSBORNE MD) Progress/Results/Core Measures Results/Orders Lab Results Laboratory Tests Test 10/10/21 10:29 Range/Units White Blood Count 10.9 4.3-11.0 10^3/uL Red Blood Count 3.07 L 4.30-5.52 10^6/uL Hemoglobin 12.8 L 13.3-17.7 g/dL Hematocrit 36 L 40-54 % Mean Corpuscular Volume 118 H 80-99 fL Mean Corpuscular Hemoglobin 42 H 25-34 pg Mean Corpuscular Hemoglobin Concent 35 32-36 g/dL Red Cell Distribution Width 13.3 10.0-14.5 % Platelet Count 115 L 130-400 10^3/uL Mean Platelet Volume 11.8 9.0-12.2 fL Immature Granulocyte % (Auto) 1 % Neutrophils (%) (Auto) 68 42-75 % Lymphocytes (%) (Auto) 15 12-44 % Monocytes (%) (Auto) 15 H 0-12 % Eosinophils (%) (Auto) 1 0-10 % Basophils (%) (Auto) 0 0-10 % Neutrophils # (Auto) 7.4 1.8-7.8 10^3/uL Lymphocytes # (Auto) 1.6 1.0-4.0 10^3/uL Monocytes # (Auto) 1.6 H 0.0-1.0 10^3/uL Eosinophils # (Auto) 0.1 0.0-0.3 10^3/uL Basophils # (Auto) 0.0 0.0-0.1 10^3/uL Immature Granulocyte # (Auto) 0.1 0.0-0.1 10^3/uL Percent Immature Platelet Fraction 6.7 0.0-7.6 % Sodium Level 135 135-145 MMOL/L Potassium Level 5.5 H 3.6-5.0 MMOL/L Chloride Level 106 98-107 MMOL/L Carbon Dioxide Level 18 L 21-32 MMOL/L Anion Gap 11 5-14 MMOL/L Blood Urea Nitrogen 19 H 7-18 MG/DL Creatinine 0.91 0.60-1.30 MG/DL Estimat Glomerular Filtration Rate 86 BUN/Creatinine Ratio 21 Glucose Level 128 H 70-105 MG/DL Calcium Level 7.8 L 8.5-10.1 MG/DL Corrected Calcium 9.3 8.5-10.1 MG/DL Magnesium Level 1.9 1.6-2.4 MG/DL Total Bilirubin 4.3 H 0.1-1.0 MG/DL Aspartate Amino Transf (AST/SGOT) 101 H 5-34 U/L Alanine Aminotransferase (ALT/SGPT) 50 0-55 U/L Alkaline Phosphatase 126 40-136 U/L Total Protein 5.9 L 6.4-8.2 GM/DL Albumin 2.1 L 3.2-4.5 GM/DL Smear Scan YES (LUIS ANGEL OSBORNE MD) My Orders Orders - LUIS ANGEL OSBORNE MD Cbc With Automated Diff (10/10/21 10:20) Comprehensive Metabolic Panel (10/10/21 10:20) Magnesium (10/10/21 10:20) Ua Culture If Indicated (10/10/21 10:20) Ed Iv/Invasive Line Start (10/10/21 10:20) Lidocaine 1% Inj 50 Ml (Xylocaine 1% Inj (10/10/21 10:45) Ns Iv 1000 Ml (Sodium Chloride 0.9%) (10/10/21 11:15) Ns Iv 500 Ml (Sodium Chloride 0.9%) (10/10/21 12:30) Ns Iv 500 Ml (Sodium Chloride 0.9%) (10/10/21 12:28) (LUIS ANGEL OSBORNE MD) Medications Given in ED Current Medications Medications Dose Ordered Sig/Lion Route Start Time Stop Time Status Last Admin Dose Admin Lidocaine HCl 50 ml ONCE ONCE IJ 10/10/21 10:45 10/10/21 10:46 DC 10/10/21 11:00 50 ML Sodium Chloride 500 ml @ 0 mls/hr Q0M ONCE IV 10/10/21 12:30 10/10/21 12:31 DC 10/10/21 12:35 0 MLS/HR (LUIS ANGEL OSBORNE MD) Vital Signs/I&O 10/10/21 09:50 Temp 35.3 Pulse 85 Resp 18 B/P (MAP) 103/82 (89) Pulse Ox 99 (LUIS ANGEL OSBORNE MD) Progress Progress Note #1: Time: 11:29 Progress Note Patient was found to have orthostatic hypotension with a standing blood pressure of 74/49. A liter of IV normal saline has been ordered. We will recheck a standing blood pressure after this liter bolus infuses. I discussed the leaking incision with Dr. Zamora. He recommended closing either with glue or by applying a deep figure 8 suture over the incision. A hbdkpj-dn-ykatr suture was placed over the left lateral aspect of the incision by MS 4. There was still some leaking that shifted more medially. A second finger a suture was placed by this provider in a more medial position, overlapping the first. This seemed to stop the oozing. Patient was found to be mildly hyperkalemic. Hyperkalemia was also treated with the normal saline bolus. Progress Note #2: Time: 13:42 Progress Note Patient received a total of 1500 mL normal saline. His systolic blood pressure was 84 and he was feeling improved. He was able to stand and take a few steps on his own power, and he stated he felt much steadier on his feet. Unfortunately, when he stood up he began leaking again. At this point I do not think there is much I can do to resolve his ascites leak. I updated Dr. Zamora who concurred. We are discharging him with instructions to apply bulky dr juan pablo to collect to the drainage. Patient states he feels safe to return home and is anxious to leave. I do not believe there would be any benefit in providing further IV fluid boluses as he will likely promptly third space those fluids given his hypoalbuminemia. We did discuss the importance of proper alcohol tapering and cessation to curb progressive effects of liver failure. He expressed understanding but did not express any intent to stop drinking alcohol. (LUIS ANGEL OSBORNE MD) Departure Impression Primary Impression: Orthostatic hypotension Additional Impressions: Drainage from surgical wound Abdominal ascites Qualified Codes: K70.31 - Alcoholic cirrhosis of liver with ascites Liver failure Qualified Codes: K72.10 - Chronic hepatic failure without coma Hypoalbuminemia Hyperkalemia Disposition: 01 HOME, SELF-CARE Condition: Improved Departure-Patient Inst. Referrals: NO,LOCAL PHYSICIAN (PCP/Family) Primary Care Physician Patient Instructions: Cirrhosis, Fluid in the Belly (Ascites) Add. Discharge Instructions: Drink plenty of clear liquids to stay well-hydrated and eat a well-balanced diet. You should have your sutures removed in 5 to 7 days. This can be done at your convenience in the ER or you can make arrangements with Dr. Zamora's office to have them removed. If the incision continues to leak, please contact Dr. Zamora's office for further instructions. While leaking, you may place a clean gauze over the linking wound to collect the drainage. It is recommended that you quit drinking alcohol completely to avoid worsening liver failure. If you quit drinking, please gradually taper the quantity consumed each day. Abruptly stopping alcohol consumption without tapering it may cause severe withdrawal symptoms, seizures, and . It is best to stop drinking alcohol under the careful guidance of your primary care provider or an addiction eye specialist. If you are still taking spironolactone, please stop it for a few days. Return to care if you have worsening symptoms. All discharge instructions reviewed with patient and/or family. Voiced understanding. Medical Student Attestation and Attending Note: I have personally interviewed and examined this patient along with Ga Joseph, MS 4. I have reviewed student documentation including history, physical, and assessments. I agree with the documentation except where otherwise noted. Exam: General: Alert, oriented, no acute distress, well developed HEENT: Normocephalic and atraumatic Heart: Regular rate and rhythm without murmur Lungs: Clear to auscultation bilaterally with normal effort Abdomen: Soft, minimal tenderness as expected for postoperative day 6, no tenderness to percussion or peritoneal signs, ecchymosis surrounding abdominal incisions, serous drainage from the lateral aspect of the umbilical incision, mildly distended, normal bowel sounds Neuropsych: Alert, oriented, no focal deficits Skin: Warm and dry without rashes, ecchymosis around incisions (LUIS ANGEL OSBORNE MD) Copy Copies To 1: MAMTA ZAMORA MD, DEREK MED STUDENT Oct 10, 2021 10:05 LUIS ANGEL OSBORNE MD Oct 10, 2021 11:35
[2021-10-10 10:36] LABS: BASOPHILS % (AUTO) 0 % (0-10); EOSINOPHILS # (AUTO) 0.1 10^3/uL (0.0-0.3); EOSINOPHILS % (AUTO) 1 % (0-10)
[2021-10-10 10:38] LABS: HEMATOCRIT 36 % (40-54); HEMOGLOBIN 12.8 g/dL (13.3-17.7); LYMPHOCYTES # (AUTO) 1.6 10^3/uL (1.0-4.0); LYMPHOCYTES % (AUTO) 15 % (12-44); MEAN CORPUSCULAR HEMOGLOBIN 42 pg (25-34); MEAN CORPUSCULAR HGB CONC 35 g/dL (32-36); MEAN CORPUSCULAR VOLUME 118 fL (80-99); MEAN PLATELET VOLUME 11.8 fL (9.0-12.2); MONOCYTES # (AUTO) 1.6 10^3/uL (0.0-1.0); MONOCYTES % (AUTO) 15 % (0-12); NEUTROPHILS # (AUTO) 7.4 10^3/uL (1.8-7.8); NEUTROPHILS % (AUTO) 68 % (42-75); PLATELET COUNT 115 10^3/uL (130-400); WHITE BLOOD COUNT 10.9 10^3/uL (4.3-11.0)
[2021-10-10] MEDS ORDERED: LIDOCAINE 1% INJ 50 ML (XYLOCAINE) VIAL IJ ONE (10:45)
[2021-10-10 10:53] LABS: SMEAR SCAN COMMENT YES
[2021-10-10 10:58] LABS: ALBUMIN 2.1 GM/DL (3.2-4.5); BILIRUBIN,TOTAL 4.3 MG/DL (0.1-1.0); CALCIUM 7.8 MG/DL (8.5-10.1); CREATININE SERUM 0.91 MG/DL (0.60-1.30); MAGNESIUM 1.9 MG/DL (1.6-2.4); TOTAL PROTEIN 5.9 GM/DL (6.4-8.2)
[2021-10-10 11:05] LABS: POTASSIUM 5.5 MMOL/L (3.6-5.0)
[2021-10-10] MEDS ORDERED: NS IV 1000 ML 1,000 ML IV SCH (11:15)
[2021-10-10] MEDS ORDERED: NS IV 500 ML 500 ML ONE (12:28)
[2021-10-10] MEDS ORDERED: NS IV 500 ML 500 ML IV ONE (12:30)
[2021-10-10 13:50] LABS: BILIRUBIN,URINE 2+ (NEGATIVE); CLARITY,URINE CLEAR; COLOR,URINE AMBER; GLUCOSE, URINE (UA) NEGATIVE (NEGATIVE); KETONES,URINE TRACE (NEGATIVE); LEUKOCYTE ESTERASE ,URINE NEGATIVE (NEGATIVE); NITRITE,URINE POSITIVE (NEGATIVE); PH,URINE 5.5 (5-9); PROTEIN,URINE 1+ (NEGATIVE)
[2021-10-10 14:02] VITALS: BP 88/73
[2021-10-10 14:20] LABS: BACTERIA,URINE NEGATIVE /HPF; SQUAMOUS EPITHELIAL CELL,UR 0-2 /HPF
== END 2021-10-10 14:02 | disposition home or self-care (01) ==
LOC: EDUNIT# 09:29 → ER 09:30
DX: I95.1 Orthostatic hypotension (principal); R18.8 Other ascites; K72.90 Hepatic failure, unspecified without coma; E88.09 Other disorders of plasma-protein metabolism, not elsewhere classified; E87.5 Hyperkalemia; Z48.03 Encounter for change or removal of drains; Z90.49 Acquired absence of other specified parts of digestive tract
CPT/HCPCS: 12011; 36415; 80053; 81000; 83735; 85025; 87077; 87088

== ENCOUNTER 2021-10-20 14:29 | Inpatient (IN) | payer MEDICARE ==
[~2021-10-20] VITALS: Ht 172 cm; Wt 101.4 kg
[2021-10-20] MEDS ORDERED: ONDANSETRON 4 MG/2 ML (SDV) Z0FRAN IVP STA (14:49)
[2021-10-20 14:53] LABS: BASOPHILS % (AUTO) 0 % (0-10); EOSINOPHILS % (AUTO) 0 % (0-10); HEMATOCRIT 36 % (40-54); HEMOGLOBIN 13.3 g/dL (13.3-17.7); LYMPHOCYTES # (AUTO) 1.2 10^3/uL (1.0-4.0); LYMPHOCYTES % (AUTO) 6 % (12-44); MEAN CORPUSCULAR HEMOGLOBIN 42 pg (25-34); MEAN CORPUSCULAR HGB CONC 37 g/dL (32-36); MEAN CORPUSCULAR VOLUME 114 fL (80-99); MONOCYTES # (AUTO) 1.9 10^3/uL (0.0-1.0); MONOCYTES % (AUTO) 9 % (0-12); NEUTROPHILS # (AUTO) 16.9 10^3/uL (1.8-7.8); NEUTROPHILS % (AUTO) 84 % (42-75); PLATELET COUNT 191 10^3/uL (130-400); WHITE BLOOD COUNT 20.2 10^3/uL (4.3-11.0)
[2021-10-20] MEDS ORDERED: NS IV 1000 ML 1,000 ML IV SCH ×3 (15:00→19:30)
[2021-10-20 15:02] LABS: ALBUMIN 2.6 GM/DL (3.2-4.5); POTASSIUM 4.6 MMOL/L (3.6-5.0)
[2021-10-20 15:03] LABS: CALCIUM 8.6 MG/DL (8.5-10.1)
[2021-10-20 15:05] LABS: TOTAL PROTEIN 6.6 GM/DL (6.4-8.2)
[2021-10-20 15:07] LABS: BILIRUBIN,TOTAL 3.1 MG/DL (0.1-1.0)
[2021-10-20 15:08] LABS: CREATININE SERUM 2.48 MG/DL (0.60-1.30)
--- NOTE | 2021-10-20 16:03 | ED General ---
General Chief Complaint: Abdominal/GI Problems Stated Complaint: NAUSEA/CAN'T EAT/LOW BLOOD PRESSURE/DIZZINESS Nursing Triage Note: PT PRESENTS TO ED VIA POV FROM HOME WITH COMPLAINTS OF NAUSEA, LOW BP, AND INCISION CONTINUING TO LEAK AFTER GALLBLADDER REMOVED 2 1/2 WEEKS AGO. History of Present Illness Date Seen by Provider: Oct 20, 2021 Time Seen by Provider: 14:52 Initial Comments 81-year-old male presents for nausea, low blood pressure, continued drainage from gallbladder incisions, alcohol dependence (red wine), decreased appetite, and malaise. He was started on Bactrim after ED visit here, for UTI. Wound was closed with suture in ED, then removed by Juanita Garcia [employer] on 10/17/21. Denies fever at home. He had 1-2 glasses of wine today. Timing/Duration: Getting Worse Severity: Moderate Associated Systoms: No Chest Pain, No Fever/Chills; Loss of Appetite, Malaise, Nausea/Vomiting; No Seizure, No Shortness of Air, No Syncope; Weakness Allergies and Home Medications Allergies Coded Allergies: No Known Drug Allergies (Unverified , 10/04/21) Patient Home Medication List Home Medication List Reviewed: Yes Glutathione (Glutathione-l) 5 Gm Powder, 5 GM MC DAILY, (Reported) Entered as Reported by: DEVON WILLIAM on 02/11/20 1347 Hydrocodone/Acetaminophen (Hydrocodone-Acetamin 7.5-325) 1 Each Tablet, 1 EACH PO Q4H PRN for PAIN-BREAKTHROUGH Prescribed by: JUANITA GARCIA on 10/04/21 0950 Metoprolol Succinate (Metoprolol Succinate) 25 Mg Tab.er.24h, 25 MG PO DAILY, (Reported) Entered as Reported by: BUCK JORGE on 03/31/18 1416 Milk Thistle (Milk Thistle) 175 Mg Tablet, 375 MG PO DAILY, (Reported) Entered as Reported by: DEVON WILLIAM on 02/11/20 1347 Spironolactone (Aldactone) 50 Mg Tablet, 50 MG PO DAILY Prescribed by: TYESHA GUTIERREZ on 04/01/18 1153 Vitamin B Complex (Vitamin B Complex) 1 Each Capsule, 1 EACH PO DAILY, (Reported) Entered as Reported by: DEVON WILLIAM on 02/11/20 1347 Review of Systems Review of Systems Constitutional: see HPI; No fever; malaise, weakness EENTM: see HPI, no symptoms reported Respiratory: no symptoms reported, see HPI; No dyspnea on exertion Cardiovascular: no symptoms reported, see HPI; No chest pain Gastrointestinal: see HPI, abdominal pain, loss of appetite, nausea Skin: see HPI, other (Persistent drainage from laparoscopic cholecystectomy.) All Other Systems Reviewed Negative Unless Noted: Yes Past Jiybjml-Uqmgnp-Jyejlr Hx Patient Social History Tobacco Use?: No Substance use?: No Alcohol Use?: Yes Alcohol type: Wine Alcohol Frequency: Daily Pt feels they are or have been: No Immunizations Up To Date First/Initial COVID19 Vaccinat: 11/2020 Second COVID19 Vaccination Patrick: 12/2020 Third COVID19 Vaccination Date: 11/2020 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: [employer] Seasonal Allergies Seasonal Allergies: No Past Medical History Surgery/Hospitalization HX: cholecystectomy-10/09/21 had 3 l fluid removed at same time hx of ascites, cirrhosis of the liver, and htn Surgeries: No (LT KNEE ACL REPAIR, PILONDIAL CYSTECTOMY) Orthopedic, Tonsillectomy Respiratory: No Cardiac: Yes (TACHYCARDIA) Hypertension Neurological: No Genitourinary: No Gastrointestinal: Yes (LIVER DISEASE WITH ASCITES) Liver Disease/Jaundice Musculoskeletal: Yes Back Injury, Chronic Back Pain Endocrine: No HEENT: Yes (WEARS GLASSES) Loss of Vision: Denies Hearing Impairment: Denies Cancer: No Psychosocial: No Integumentary: No Blood Disorders: No Adverse Reaction/Blood Tranf: No Family Medical History Reviewed Nursing Family Hx Physical Exam Vital Signs Vital Signs - First Documented 10/20/21 14:48 Temp 36.3 Pulse 125 Resp 18 B/P (MAP) 94/61 (72) Capillary Refill : Less Than 3 Seconds Height, Weight, BMI Height: 5'9.00" Weight: 179lbs. 0.0oz. 81.643991xp; 34.00 BMI Method: General Appearance: No Apparent Distress, WD/WN HEENT: PERRL/EOMI, TMs Normal, Normal ENT Inspection, Pharynx Normal Neck: Full Range of Motion, Normal Inspection, Non Tender, Supple Respiratory: Chest Non Tender, Lungs Clear, Normal Breath Sounds Cardiovascular: Regular Rate, Rhythm, No Edema, Tachycardia (105-120) Gastrointestinal: Normal Bowel Sounds, Soft, Distended; No Mass, No Rebound, No Tenderness; Other (Incision sites without erythema or warmth, clear drainage noted from umbilical incision. culture obtained from umbilical drainage. ) Extremity: Normal Capillary Refill, Normal Inspection, Normal Range of Motion Neurologic/Psychiatric: Alert, Oriented x3, No Motor/Sensory Deficits, Normal Mood/Affect Focused Exam Lactate Level 10/20/21 15:25: Lactic Acid Level 3.19*H Lactic Acid Level Laboratory Tests Test 10/20/21 15:25 Lactic Acid Level 3.19 MMOL/L (0.50-2.00) *H Progress/Results/Core Measures Suspected Sepsis SIRS Temperature: Pulse: 125 Respiratory Rate: 18 Laboratory Tests 10/20/21 14:45: White Blood Count 20.2H Blood Pressure 94 /61 Mean: 72 10/20/21 15:25: Lactic Acid Level 3.19*H Laboratory Tests 10/20/21 14:45: Creatinine 2.48H, INR Comment 1.4, Platelet Count 191, Total Bilirubin 3.1H Results/Orders Lab Results Laboratory Tests Test 10/20/21 14:45 10/20/21 15:25 10/20/21 16:13 Range/Units White Blood Count 20.2 H 4.3-11.0 10^3/uL Red Blood Count 3.18 L 4.30-5.52 10^6/uL Hemoglobin 13.3 13.3-17.7 g/dL Hematocrit 36 L 40-54 % Mean Corpuscular Volume 114 H 80-99 fL Mean Corpuscular Hemoglobin 42 H 25-34 pg Mean Corpuscular Hemoglobin Concent 37 H 32-36 g/dL Red Cell Distribution Width 12.4 10.0-14.5 % Platelet Count 191 130-400 10^3/uL Mean Platelet Volume 11.0 9.0-12.2 fL Immature Granulocyte % (Auto) 1 % Neutrophils (%) (Auto) 84 H 42-75 % Lymphocytes (%) (Auto) 6 L 12-44 % Monocytes (%) (Auto) 9 0-12 % Eosinophils (%) (Auto) 0 0-10 % Basophils (%) (Auto) 0 0-10 % Neutrophils # (Auto) 16.9 H 1.8-7.8 10^3/uL Lymphocytes # (Auto) 1.2 1.0-4.0 10^3/uL Monocytes # (Auto) 1.9 H 0.0-1.0 10^3/uL Eosinophils # (Auto) 0.0 0.0-0.3 10^3/uL Basophils # (Auto) 0.0 0.0-0.1 10^3/uL Immature Granulocyte # (Auto) 0.2 H 0.0-0.1 10^3/uL Neutrophils % (Manual) 87 % Lymphocytes % (Manual) 5 % Monocytes % (Manual) 8 % Toxic Granulation 1+ Macrocytosis MODERATE Prothrombin Time 18.0 H 12.2-14.7 SEC INR Comment 1.4 0.8-1.4 Activated Partial Thromboplast Time 32 24-35 SEC Sodium Level 126 L 135-145 MMOL/L Potassium Level 4.6 3.6-5.0 MMOL/L Chloride Level 97 L 98-107 MMOL/L Carbon Dioxide Level 12 L 21-32 MMOL/L Anion Gap 17 H 5-14 MMOL/L Blood Urea Nitrogen 73 H 7-18 MG/DL Creatinine 2.48 H 0.60-1.30 MG/DL Estimat Glomerular Filtration Rate 26 BUN/Creatinine Ratio 29 Glucose Level 179 H 70-105 MG/DL Calcium Level 8.6 8.5-10.1 MG/DL Corrected Calcium 9.7 8.5-10.1 MG/DL Total Bilirubin 3.1 H 0.1-1.0 MG/DL Aspartate Amino Transf (AST/SGOT) 133 H 5-34 U/L Alanine Aminotransferase (ALT/SGPT) 98 H 0-55 U/L Alkaline Phosphatase 119 40-136 U/L C-Reactive Protein High Sensitivity 3.22 H 0.00-0.50 MG/DL Total Protein 6.6 6.4-8.2 GM/DL Albumin 2.6 L 3.2-4.5 GM/DL Serum Alcohol < 10 <10 MG/DL Lactic Acid Level 3.19 *H 0.50-2.00 MMOL/L Urine Color ORANGE Urine Clarity CLEAR Urine pH 5.5 5-9 Urine Specific [place] >=1.030 1.016-1.022 Urine Protein NEGATIVE NEGATIVE Urine Glucose (UA) NEGATIVE NEGATIVE Urine Ketones NEGATIVE NEGATIVE Urine Nitrite NEGATIVE NEGATIVE Urine Bilirubin NEGATIVE NEGATIVE Urine Urobilinogen 0.2 < = 1.0 MG/DL Urine Leukocyte Esterase NEGATIVE NEGATIVE Urine RBC (Auto) NEGATIVE NEGATIVE Urine RBC NONE /HPF Urine WBC NONE /HPF Urine Squamous Epithelial Cells NONE /HPF Urine Crystals PRESENT H /LPF Urine Uric Acid Crystals MODERATE H /LPF Urine Bacteria TRACE /HPF Urine Casts NONE /LPF Urine Mucus NEGATIVE /LPF Urine Culture Indicated NO My Orders Orders - YENNINOE DAWSON Cbc With Automated Diff (10/20/21 14:44) Comprehensive Metabolic Panel (10/20/21 14:44) Ua Culture If Indicated (10/20/21 14:44) Ed Iv/Invasive Line Start (10/20/21 14:49) Ns Iv 1000 Ml (Sodium Chloride 0.9%) (10/20/21 15:00) Ondansetron Injection (Zofran Injectio (10/20/21 14:49) Manual Differential (10/20/21 14:45) Alcohol (10/20/21 15:07) Blood Culture (10/20/21 15:14) Lactic Acid Analyzer (10/20/21 15:14) Chest 1 View, Ap/Pa Only (10/20/21 15:53) Ed Iv/Invasive Line Start (10/20/21 16:08) Ns Iv 1000 Ml (Sodium Chloride 0.9%) (10/20/21 16:15) Vancomycin Injection (Vancomycin Injecti (10/20/21 16:15) Hs C Reactive Protein (10/20/21 16:23) Vancomycin Injection (Vancomycin Injecti (10/20/21 16:45) Protime With Inr (10/20/21 17:00) Partial Thromboplastin Time (10/20/21 17:00) Ct Abdomen/Pelvis Wo (10/20/21 17:06) Vital Signs/I&O 10/20/21 14:48 Temp 36.3 Pulse 125 Resp 18 B/P (MAP) 94/61 (72) Capillary Refill : Less Than 3 Seconds Blood Pressure Mean: 72 Progress Note : Time: 14:52 Progress Note Patient seen and evaluated, will obtain labs, per sepsis protocol based on hypotension and tachycardia. NS He is afebrile. Sister and at bedside 1530 B/P 100/68. No complaints. 1600 WBC 20.2; Awaiting UA. CXR neg. 1615 Lactic 3.19, will give second liter NS. 1645 B/P improved to 112/70, HR 92-110. No fever. UA obtained. Based on previous Urine culture, will give Vanc [address] abdomen and pelvis to assess ascites and possible perotonitis? Dr. Walker agreeable with plan to admit. [address] Blas, agreeable to see patient this weekend, requested call to Dr. Zamora, since surgery < 1month ago. Spoke to Dr. Zamora, recommended Cipro and Flagyl IV. Will see 10/22/21. Spoke to his and sister by phone, updated on status and plan. 1830 lactic 2.89. Receiving 3rd liter of NS. HR 80s-110. B/P 106/74. Patient denies any complaints. Awaiting ICU bed placement. 1899 ICU shift change, then will accept patient. He was up to bathroom and drank coffee. B/P remains labile. HR 80-100. No complaints, no D/Ts but did ask about having wine. Diagnostic Imaging Diagonstic Imaging: Xray Plain Films/CT/US/NM/MRI: chest Comments NAME: JAGNICKIE Briseno [facility] REC#: [id number] PT STATUS: REG ER : 1940 PHYSICIAN: NOE HYMANP ADMIT DATE: 10/20/21/ER Signed Date of Exam:10/20/21 CHEST 1 VIEW, AP/PA ONLY INDICATION: Sepsis. TIME OF EXAM: 4:06 PM. COMPARISON: No prior studies are available for comparison. FINDING: The heart size is normal. The pulmonary vascularity is unremarkable. The lungs are clear. No infiltrate, effusion or pneumothorax is detected. IMPRESSION: No acute cardiopulmonary process is detected. Dictated by: Dictated on workstation # [id number] Dict: 10/20/21 1621 Trans: 10/20/21 1625 LOCATED WITHIN [facility] [id number] Interpreted by: DEBBIE LIGHT MD Electronically signed by: DEBBIE LIGHT MD 10/20/21 Diagonstic Imaging: CT Plain Films/CT/US/NM/MRI: abdomen, pelvis Comments NAME: JAGNICKIE [facility] REC#: [id number] PT STATUS: REG ER : 1940 PHYSICIAN: NOE HYMAN ADMIT DATE: 10/20/21/ER Signed Date of Exam:10/20/21 CT ABDOMEN/PELVIS WO PROCEDURE: CT abdomen and pelvis without contrast. TECHNIQUE: Multiple contiguous axial images were obtained through the abdomen and pelvis without the use of intravenous contrast. Auto Exposure Controls were utilized during the CT exam to meet ALARA standards for radiation dose reduction. DATE: October 20, 2021. COMPARISON: Ultrasound abdomen complete July 13, 2021. CT abdomen and pelvis February 20, 2018. INDICATION: 81-year-old male, nausea. Leak at incision site status post cholecystectomy 2-1/2 weeks ago. FINDINGS: There are limitations for evaluation of the abdominal organs, neoplastic processes, abscess, and limited evaluation of the vasculature relating to the lack of intravenous contrast. There is respiratory motion artifact. The heart is not enlarged. There is no pericardial effusion. The liver contours are mildly nodular suggesting possible cirrhosis. Recommend correlation with liver function test. The gallbladder is surgically absent. There is no intrahepatic or extrahepatic bile duct dilation. The main pancreatic duct is not abnormally dilated. Limited noncontrast assessment of the pancreatic parenchyma is unremarkable. Splenic calcifications likely relate to prior granulomatous disease. The spleen is not enlarged. The adrenal glands are unremarkable. Unremarkable appearance of the renal parenchyma. The urinary collecting systems are not distended. There is no identified renal or ureteral stone. The urinary bladder is unremarkable. There is mild diverticulosis without evidence to suggest acute diverticulitis. The intestinal tract is not distended. There is no free intraperitoneal air. There is a small volume ascites. There is no identified drainable fluid collection. There are atherosclerotic calcifications. There is no identified abnormally enlarged lymph node in the abdomen or pelvis meeting CT size criteria for adenopathy. There are multilevel degenerative changes of the spine. There is no identified acute bony abnormality. IMPRESSION: CT abdomen and pelvis: 1. Findings questionable for cirrhosis with small volume ascites. Recommend correlation with liver function test. No splenomegaly. 2. No identified acute abnormality in the abdomen or pelvis. Reviewed: Reviewed by Me Departure Impression Primary Impression: Cirrhosis Qualified Codes: K74.60 - Unspecified cirrhosis of liver Additional Impressions: EtOH dependence Qualified Codes: F10.20 - Alcohol dependence, uncomplicated Sepsis Qualified Codes: A41.9 - Sepsis, unspecified organism Disposition: ADMITTED INPATIENT Condition: Critical Admissions Decision to Admit/Date: Oct 20, 2021 Time/Decision to Admit Time: 16:20 Departure-Patient Inst. Referrals: NO,LOCAL PHYSICIAN (PCP/Family) Primary Care Physician NOE HYMAN Oct 20, 2021 16:03
[2021-10-20] MEDS ORDERED: VANCOMYCIN INJECTION 1,000 MG in NS (IVPB) 250 ML IV ONE (16:15)
[2021-10-20 16:19] LABS: LYMPHOCYTES % (MANUAL) 5 %; MONOCYTES % (MANUAL) 8 %; NEUTROPHILS % (MANUAL) 87 %; TOXIC GRANULATION/VACUOLAZATIO 1+
[2021-10-20 16:21] LABS: CLARITY,URINE CLEAR; COLOR,URINE ORANGE; GLUCOSE, URINE (UA) NEGATIVE (NEGATIVE); KETONES,URINE NEGATIVE (NEGATIVE); LEUKOCYTE ESTERASE ,URINE NEGATIVE (NEGATIVE); NITRITE,URINE NEGATIVE (NEGATIVE); PH,URINE 5.5 (5-9); PROTEIN,URINE NEGATIVE (NEGATIVE)
--- NOTE | 2021-10-20 16:25 | Diagnostic Imaging Report ---
INDICATION: Sepsis. TIME OF EXAM: 4:06 PM. COMPARISON: No prior studies are available for comparison. FINDING: The heart size is normal. The pulmonary vascularity is unremarkable. The lungs are clear. No infiltrate, effusion or pneumothorax is detected. IMPRESSION: No acute cardiopulmonary process is detected. Dictated by: Dictated on workstation # [id number]
[2021-10-20 16:26] LABS: BILIRUBIN,URINE NEGATIVE (NEGATIVE)
[2021-10-20 16:35] LABS: BACTERIA,URINE TRACE /HPF; URIC ACID CRYSTALS,URINE MODERATE /LPF
[2021-10-20] MEDS ORDERED: VANCOMYCIN 1,750 MG/NS 500 ML IVPB IV NR ×2 (16:45)
[2021-10-20 17:28] LABS: INR 1.4 (0.8-1.4)
--- NOTE | 2021-10-20 17:43 | Diagnostic Imaging Report ---
PROCEDURE: CT abdomen and pelvis without contrast. TECHNIQUE: Multiple contiguous axial images were obtained through the abdomen and pelvis without the use of intravenous contrast. Auto Exposure Controls were utilized during the CT exam to meet ALARA standards for radiation dose reduction. DATE: October 20, 2021. COMPARISON: Ultrasound abdomen complete July 13, 2021. CT abdomen and pelvis February 20, 2018. INDICATION: 81-year-old male, nausea. Leak at incision site status post cholecystectomy 2-1/2 weeks ago. FINDINGS: There are limitations for evaluation of the abdominal organs, neoplastic processes, abscess, and limited evaluation of the vasculature relating to the lack of intravenous contrast. There is respiratory motion artifact. The heart is not enlarged. There is no pericardial effusion. The liver contours are mildly nodular suggesting possible cirrhosis. Recommend correlation with liver function test. The gallbladder is surgically absent. There is no intrahepatic or extrahepatic bile duct dilation. The main pancreatic duct is not abnormally dilated. Limited noncontrast assessment of the pancreatic parenchyma is unremarkable. Splenic calcifications likely relate to prior granulomatous disease. The spleen is not enlarged. The adrenal glands are unremarkable. Unremarkable appearance of the renal parenchyma. The urinary collecting systems are not distended. There is no identified renal or ureteral stone. The urinary bladder is unremarkable. There is mild diverticulosis without evidence to suggest acute diverticulitis. The intestinal tract is not distended. There is no free intraperitoneal air. There is a small volume ascites. There is no identified drainable fluid collection. There are atherosclerotic calcifications. There is no identified abnormally enlarged lymph node in the abdomen or pelvis meeting CT size criteria for adenopathy. There are multilevel degenerative changes of the spine. There is no identified acute bony abnormality. IMPRESSION: CT abdomen and pelvis: 1. Findings questionable for cirrhosis with small volume ascites. Recommend correlation with liver function test. No splenomegaly. 2. No identified acute abnormality in the abdomen or pelvis. Dictated by: Dictated on workstation # [id number]
--- NOTE | 2021-10-20 19:27 | Tele-ICU Consult ---
History of Present Illness History of Present Illness Date Seen by Provider: Oct 20, 2021 Time Seen by Provider: 19:25 Date of Admission ED COURSE: 81-year-old male presents for nausea, low blood pressure, continued drainage from gallbladder incisions, alcohol dependence (red wine), decreased appetite, and malaise. He was started on Bactrim after ED visit here, for UTI. Wound was closed with suture in ED, then removed by Juanita Garcia [employer] on 10/17/21. Denies fever at home. He had 1-2 glasses of wine today. ICU course: pt appears stable/ has drainage from the incision/ clear to yellow. no abd pain; no fever Allergies and Home Medications Allergies Coded Allergies: No Known Drug Allergies (Unverified , 10/04/21) Home Medications Glutathione 5 Gm Powder, 5 GM MC DAILY, (Reported) Hydrocodone/Acetaminophen 1 Each Tablet, 1 EACH PO Q4H PRN for PAIN-BREAKTHROUGH Prescribed by: JUANITA GARCIA on 10/04/21 0950 Metoprolol Succinate 25 Mg Tab.er.24h, 25 MG PO DAILY, (Reported) Milk Thistle 175 Mg Tablet, 375 MG PO DAILY, (Reported) Spironolactone 50 Mg Tablet, 50 MG PO DAILY Prescribed by: TYESHA GUTIERREZ on 04/01/18 1153 Vitamin B Complex 1 Each Capsule, 1 EACH PO DAILY, (Reported) Past Medical/Social/Family Hx Patient Social History Tobacco Use?: No Substance use?: No Alcohol Use?: Yes Alcohol type: Wine Alcohol Frequency: Daily Pt stated abuse/neglect: No Immunizations Up To Date First/Initial COVID19 Vaccinat: 11/2020 Second COVID19 Vaccination Patrick: 12/2020 Current Status Primary Language: Danish Preferred Spoken Language: Danish Past Medical History cirrhosis Review of Systems Constitutional: see HPI Focused Exam Lactate Level 10/20/21 15:25: Lactic Acid Level 3.19*H 10/20/21 18:09: Lactic Acid Level 2.89*H Height, Weight, BMI Height: 5'9.00" Weight: 179lbs. 0.0oz. 81.287637mk; 34.00 BMI Method: Lactic Acid Level Laboratory Tests Test 10/20/21 18:09 Lactic Acid Level 2.89 MMOL/L (0.50-2.00) *H Exam Exam Patient acknowledged, consented, and participated in this virtual visit which was conducted using real time audio/video Vital Signs Date Time Temp Pulse Resp B/P (MAP) Pulse Ox O2 Delivery O2 Flow Rate FiO2 10/20/21 14:48 36.3 125 18 94/61 (72) Height & Weight Height: 5'9.00" Weight: 179lbs. 0.0oz. 81.318339yq; 34.00 BMI Method: General Appearance: No Apparent Distress, WD/WN HEENT: PERRL/EOMI, TMs Normal, Normal ENT Inspection, Pharynx Normal Neck: Full Range of Motion, Normal Inspection, Non Tender, Supple Respiratory: Chest Non Tender, Lungs Clear, Normal Breath Sounds Cardiovascular: Regular Rate, Rhythm, No Edema, Tachycardia (105-120) Capillary Refill: Less Than 3 Seconds Extremity: Normal Capillary Refill, Normal Inspection, Normal Range of Motion Neurologic/Psychiatric: Alert, Oriented x3, No Motor/Sensory Deficits, Normal Mood/Affect Results Lab Laboratory Tests 10/20/21 14:45 Assessment/Plan Assessment/Plan Sepsis due to possible bacteremia/ SBP/ SSI -trend lactic acid follow blood cultures -add G- coverage zosyn -severe metabolic acidosis: abg/ repeat cmp dvt prophylxis MASTER GUERRERO MD Oct 20, 2021 19:27
[2021-10-20] MEDS ORDERED: PIPERACILLIN SODIUM/TAZOBACTAM 3.375 GM in NS (IVPB) 100 ML IV SCH (20:15)
[2021-10-20 20:33] LABS: ALBUMIN 2.4 GM/DL (3.2-4.5); POTASSIUM 4.6 MMOL/L (3.6-5.0)
[2021-10-20 20:34] LABS: CALCIUM 7.9 MG/DL (8.5-10.1)
[2021-10-20 20:37] LABS: BILIRUBIN,TOTAL 2.9 MG/DL (0.1-1.0)
[2021-10-20 20:39] LABS: CREATININE SERUM 2.22 MG/DL (0.60-1.30)
[2021-10-20] MEDS ORDERED: PIPERACILLIN SODIUM/TAZOBACTAM 4.5 GM in NS (IVPB) 100 ML IV ONE (21:00)
[2021-10-20] MEDS: NS IV 1000 ML 1,000 ML IV SCH (21:30)
[2021-10-20] MEDS ORDERED: ONDANSETRON 4 MG/2 ML (SDV) Z0FRAN IV PRN (21:30)
[2021-10-20] MEDS ORDERED: fentaNYL INJ 100 MCG/2 ML AMP IV PRN (21:30)
[2021-10-20] MEDS ORDERED: ACETAMINOPHEN 500 MG TAB (TYLENOL) PO PRN (21:30)
[2021-10-20] MEDS: D5 LR IV SOLUTION 1,000 ML IV SCH (21:36)
[2021-10-20] MEDS: metroNIDAZOLE 500MG/100ML IVPB 100 ML IV SCH (22:06)
[2021-10-20] MEDS: CIPROFLOXACIN IV 400MG/200ML 200 ML IV SCH (22:10)
[2021-10-20 23:30] LABS: ABG BASE EXCESS -9.3 MMOL/L (-2.5-2.5); ABG OXYGEN SATURATION 96 % (94-100); ABG PCO2 21 MMHG (35-45); ABG PH 7.45 (7.37-7.43); ABG PO2 75 MMHG (79-93); ABG TCO2 14.8 MMOL/L (21.0-31.0)
[2021-10-20 23:33] LABS: PATIENT TEMP 36.5; VENTILATOR NO
[2021-10-20] MEDS ORDERED: ALBUMIN 25% 25 GM/100 ML 100 ML IV ONE (23:45)
[2021-10-20] MEDS ORDERED: LACTATED RINGERS 1,000 ML IV SCH (23:45)
[2021-10-21] MEDS ORDERED: PIPERACILLIN SODIUM/TAZOBACTAM 4.5 GM in NS (IVPB) 100 ML IV SCH (03:00)
[2021-10-21] MEDS ORDERED: LACTATED RINGERS 500 ML IV ONE (03:15)
[2021-10-21 04:39] LABS: BASOPHILS % (AUTO) 0 % (0-10); EOSINOPHILS % (AUTO) 0 % (0-10); HEMATOCRIT 30 % (40-54); HEMOGLOBIN 10.8 g/dL (13.3-17.7); LYMPHOCYTES # (AUTO) 1.2 10^3/uL (1.0-4.0); LYMPHOCYTES % (AUTO) 10 % (12-44); MEAN CORPUSCULAR HEMOGLOBIN 42 pg (25-34); MEAN CORPUSCULAR HGB CONC 36 g/dL (32-36); MEAN CORPUSCULAR VOLUME 117 fL (80-99); MEAN PLATELET VOLUME 10.9 fL (9.0-12.2); MONOCYTES # (AUTO) 1.6 10^3/uL (0.0-1.0); MONOCYTES % (AUTO) 13 % (0-12); NEUTROPHILS # (AUTO) 9.4 10^3/uL (1.8-7.8); NEUTROPHILS % (AUTO) 76 % (42-75); PLATELET COUNT 142 10^3/uL (130-400); WHITE BLOOD COUNT 12.3 10^3/uL (4.3-11.0)
[2021-10-21] MEDS: NS IV 1000 ML 1,000 ML IV SCH ×4 (04:45→21:33)
[2021-10-21 04:53] LABS: ALBUMIN 2.6 GM/DL (3.2-4.5); POTASSIUM 4.4 MMOL/L (3.6-5.0)
[2021-10-21] MEDS: D5 LR IV SOLUTION 1,000 ML IV SCH ×4 (04:53→21:50)
[2021-10-21 04:55] LABS: TOTAL PROTEIN 5.6 GM/DL (6.4-8.2)
[2021-10-21 04:57] LABS: BILIRUBIN,TOTAL 2.9 MG/DL (0.1-1.0)
[2021-10-21 04:59] LABS: CREATININE SERUM 1.79 MG/DL (0.60-1.30); PHOSPHORUS 3.1 MG/DL (2.3-4.7)
[2021-10-21 05:02] LABS: MAGNESIUM 2.1 MG/DL (1.6-2.4)
[2021-10-21] MEDS: NOREPINEPHRINE 8 MG/250 ML 250 ML IV SCH ×3 (08:13→21:33)
[2021-10-21] MEDS: THIAMINE INJECTION 100 MG in NS (IVPB) 50 ML IV SCH (08:18)
[2021-10-21] MEDS: FOLIC ACID INJECTION 1 MG in NS (IVPB) 50 ML IV SCH (08:29)
[2021-10-21] MEDS: CIPROFLOXACIN IV 400MG/200ML 200 ML IV SCH ×2 (08:34→21:09)
[2021-10-21] MEDS: metroNIDAZOLE 500MG/100ML IVPB 100 ML IV SCH ×2 (08:34→21:17)
--- NOTE | 2021-10-21 08:52 | History & Physical-Hospitalist ---
History of Present Illness HPI/Chief Complaint Patient is 81-year-old male past medical history of cirrhosis, hypertension, and recent cholecystectomy who presented to the emergency room due to drainage from surgical wounds and low blood pressure. He is a very poor historian but per the ER note he also complained of nausea and decreased appetite. He told me his surgery was 2 years ago though records reveal it was much more recent than that (10/04). He does not complain of any of this to me and states he is feeling very well. When asked why he came to the hospital then if he was feeling well he states because his sister is a nurse. Reviewing records reveals he was seen in the emergency department last week for drainage from surgical incisions and a suture was placed. He saw Dr. ALBERT's nurse practitioner on October 17 for removal. Since then he has continued to have drainage. He also continues to drink 1-2 glasses of wine a day. Date Seen 10/21/21 Time Seen by a Provider: 08:00 Attending Physician Miladis Walker MD PCP No,Local Physician Referring Physician Date of Admission Oct 20, 2021 at 17:30 Home Medications & Allergies Home Medications Reviewed patient Home Medication Reconciliation performed by pharmacy medication reconciliations ophthalmology technician and/or nursing. Patients Allergies have been reviewed. Allergies Allergies Coded Allergies No Known Drug Allergies (Unverified10/04/21) Past Icqsxwa-Udgaun-Fhlbis Hx Patient Social History Marrital Status: Tobacco Use?: No Smoking Status: Unknown if Ever Smoked Use of E-Cig and/or Vaping dev: No Substance use?: No Alcohol Use?: Yes Alcohol type: Wine Alcohol Frequency: Daily Pt feels they are or have been: No Immunizations Up To Date Date of Influenza Vaccine: Apr 11, 2021 First/Initial COVID19 Vaccinat: 11/2020 Second COVID19 Vaccination Patrick: 12/2020 Seasonal Allergies Seasonal Allergies: No Current Status Primary Language: Welsh Preferred Spoken Language: Welsh Past Medical History Surgeries: Orthopedic, Tonsillectomy Hypertension Liver Disease/Jaundice, Cirrhosis, Gall Bladder Disease Back Injury, Chronic Back Pain Loss of Vision: Denies Hearing Impairment: Denies Blood Disorders: No Adverse Reaction/Blood Tranf: No cirrhosis Family Medical History Reviewed Nursing Family Hx No Pertinent Family Hx Review of Systems ROS-Unable to Obtain: poor historian, denies all complaints Constitutional: see HPI Physical Exam Physical Exam Vital Signs Vital Signs - First Documented 10/20/21 10/20/21 10/20/21 14:48 19:42 20:20 Temp 36.3 Pulse 125 Resp 18 B/P (MAP) 94/61 (72) Pulse Ox 100 O2 Delivery Room Air Capillary Refill : Less Than 3 Seconds Height, Weight, BMI Height: 5'9.00" Weight: 179lbs. 0.0oz. 81.770404ur; 34.00 BMI Method: General Appearance: No Apparent Distress, Chronically ill HEENT: PERRL/EOMI, Moist Mucous Membranes; No Scleral Icterus (L), No Scleral Icterus (R) Respiratory: Lungs Clear, No Accessory Muscle Use, No Respiratory Distress Cardiovascular: No JVD, No Murmur, Tachycardia Gastrointestinal: Normal Bowel Sounds, Non Tender, Distended; No Guarding, No Rebound; Other (abd pag on umbilical incision to control drainage but left surgical wound with serious drainage as well) Extremity: Normal Capillary Refill, No Calf Tenderness, No Pedal Edema Neurologic/Psychiatric: Alert, Normal Mood/Affect, Other (oriented to person and place only) Skin: Normal Color, Warm/Dry Results Results/Procedures Labs Laboratory Tests 10/20/21 14:45 10/20/21 20:13 10/21/21 04:27 Patient resulted labs reviewed. Imaging: Reviewed Imaging Report Imaging [facility], [place] NAME: NICKIE RM [facility] REC#: [id number] PT STATUS: REG ER : 1940 PHYSICIAN: NOE HYMAN ADMIT DATE: 10/20/21/ER Signed Date of Exam:10/20/21 CT ABDOMEN/PELVIS WO PROCEDURE: CT abdomen and pelvis without contrast. TECHNIQUE: Multiple contiguous axial images were obtained through the abdomen and pelvis without the use of intravenous contrast. Auto Exposure Controls were utilized during the CT exam to meet ALARA standards for radiation dose reduction. DATE: October 20, 2021. COMPARISON: Ultrasound abdomen complete July 13, 2021. CT abdomen and pelvis February 20, 2018. INDICATION: 81-year-old male, nausea. Leak at incision site status post cholecystectomy 2-1/2 weeks ago. FINDINGS: There are limitations for evaluation of the abdominal organs, neoplastic processes, abscess, and limited evaluation of the vasculature relating to the lack of intravenous contrast. There is respiratory motion artifact. The heart is not enlarged. There is no pericardial effusion. The liver contours are mildly nodular suggesting possible cirrhosis. Recommend correlation with liver function test. The gallbladder is surgically absent. There is no intrahepatic or extrahepatic bile duct dilation. The main pancreatic duct is not abnormally dilated. Limited noncontrast assessment of the pancreatic parenchyma is unremarkable. Splenic calcifications likely relate to prior granulomatous disease. The spleen is not enlarged. The adrenal glands are unremarkable. Unremarkable appearance of the renal parenchyma. The urinary collecting systems are not distended. There is no identified renal or ureteral stone. The urinary bladder is unremarkable. There is mild diverticulosis without evidence to suggest acute diverticulitis. The intestinal tract is not distended. There is no free intraperitoneal air. There is a small volume ascites. There is no identified drainable fluid collection. There are atherosclerotic calcifications. There is no identified abnormally enlarged lymph node in the abdomen or pelvis meeting CT size criteria for adenopathy. There are multilevel degenerative changes of the spine. There is no identified acute bony abnormality. IMPRESSION: CT abdomen and pelvis: 1. Findings questionable for cirrhosis with small volume ascites. Recommend correlation with liver function test. No splenomegaly. 2. No identified acute abnormality in the abdomen or pelvis. Dictated by: Dictated on workstation # [id number] Dict: 10/20/211731 Trans: 10/20/211746 [facility] [id number] Interpreted by: LETICIA SCHREIBER MD Electronically signed by: LETICIA SCHREIBER MD 10/20/211746 Assessment/Plan Admission Diagnosis Sepsis Admission Status: Inpatient Order (span 2 midnights) Reason for Inpatient Admission: see below Assessment and Plan Severe Sepsis Acute Kidney injury Metabolic acidosis-lactic acidosis Likely SBP Continue IV abx- Currently on Cipro and Flagyl If condition changes will add 3rd generation cephalosporin but seems to be improving with this regimen Lactic acid likely not clearly due to live failure Await cultures BP marginal, got albumin over night Continue IVF, creatinine improving Cirrhosis- likely end stage liver disease Recent cholecystectomy Alcohol abuse Hyperbilirubinemia Transaminitis Surgery consulted, appreciate myra RANGEL protocol Trend labs Consider palliative consult Banana bag Check ammonia DVT ppx: MILADIS Escobar MD Oct 21, 2021 08:52
--- NOTE | 2021-10-21 09:19 | Tele-ICU Progress Note ---
Subjective Date Seen by a Provider: Oct 21, 2021 Time Seen by a Provider: 09:15 Subjective/Events-last exam Admitted for possible abd sepsis, has drainage from recent abd surgery, CT abd yesterday showed no abnormal fluid collections, only small amount of ascites, probable cirrhosis on IV Cipro and Flagyl, no + cultures yes BP 100/64, WBC down from 20 to 12, LA also better 3.65 to 2.46 but now back up to 3.4 Sepsis Event Evaluation Height, Weight, BMI Height: 5'9.00" Weight: 179lbs. 0.0oz. 81.440770su; 34.00 BMI Method: Focused Exam Lactate Level 10/21/21 04:27: Lactic Acid Level 3.65*H 10/21/21 06:40: Lactic Acid Level 2.46*H 10/21/21 08:50: Lactic Acid Level 3.40*H Lactic Acid Level Laboratory Tests Test 10/21/21 06:40 10/21/21 08:50 Lactic Acid Level 2.46 MMOL/L (0.50-2.00) *H 3.40 MMOL/L (0.50-2.00) *H Exam Exam Patient acknowledged, consented, and participated in this virtual visit which was conducted using real time audio/video Vital Signs Date Time Temp Pulse Resp B/P (MAP) Pulse Ox O2 Delivery O2 Flow Rate FiO2 10/21/21 07:50 36.2 10/21/21 07:42 99 Room Air 10/21/21 07:00 118 10/21/21 06:00 110 25 100/64 99 Room Air 10/21/21 05:00 112 25 90/61 98 Room Air 10/21/21 04:00 100 Room Air 10/21/21 04:00 111 23 109/70 100 Room Air 10/21/21 03:00 112 24 99/62 99 Room Air 10/21/21 02:00 123 20 93/53 97 Room Air 10/21/21 01:09 36.5 10/21/21 01:00 106 14 94/68 98 Room Air 10/21/21 01:00 110 10/21/21 00:00 112 20 102/68 98 Room Air 10/20/21 23:59 97 Room Air 10/20/21 23:00 114 23 99 Room Air 10/20/21 22:15 114 20 94/76 100 Room Air 10/20/21 21:45 111 21 101/62 99 Room Air 10/20/21 21:34 110 10/20/21 21:15 108 19 85/47 97 Room Air 10/20/21 21:00 108 23 85/49 94 Room Air 10/20/21 20:45 110 22 84/47 98 Room Air 10/20/21 20:30 96 Room Air 10/20/21 20:20 36.8 113 17 112/95 100 Room Air 10/20/21 19:42 36.5 103 24 100/52 100 10/20/21 14:48 36.3 125 18 94/61 (72) I & O 10/21/21 07:00 Intake Total 2517.5 ml Output Total 450 ml Balance 2067.5 ml Height & Weight Height: 5'9.00" Weight: 179lbs. 0.0oz. 81.268661ar; 34.00 BMI Method: General Appearance: No Apparent Distress, Chronically ill HEENT: PERRL/EOMI, Moist Mucous Membranes; No Scleral Icterus (L), No Scleral Icterus (R) Neck: Full Range of Motion, Normal Inspection, Non Tender, Supple Respiratory: Lungs Clear, No Accessory Muscle Use, No Respiratory Distress Cardiovascular: Regular Rate, Rhythm, No JVD, No Murmur, Tachycardia, Other (clear drainage from incision from lap giovanny) Capillary Refill: Less Than 3 Seconds Gastrointestinal: normal bowel sounds, non tender, soft, distended (mild distension) Extremity: Normal Capillary Refill, No Calf Tenderness, No Pedal Edema Neurologic/Psychiatric: Alert, Oriented x3, Normal Mood/Affect, Other (oriented to person and place only) Skin: Normal Color, Warm/Dry Results Lab Laboratory Tests 10/20/21 14:45 10/20/21 20:13 10/21/21 04:27 Assessment/Plan Assessment/Plan Abd sepsis, appears to be improving, will continue present abx monitor if spikes temp do more BC Critical Care: Critically Ill Patient Time spent with patient (mins): 30 HAI CELIS MD Oct 21, 2021 09:19
--- NOTE | 2021-10-21 09:53 | Consultation - Surgery ---
REBECCA GROSS 10/21/21 0953: History of Present Illness History of Present Illness Patient Consulted On(nazario/time) 10/21/21 09:47 Date Seen by Provider: Oct 21, 2021 Time Seen by Provider: 07:01 Reason for Visit: Abdominal pain History of Present Illness Mr. Torres is a 81 year old male with a past medical history of nodular liver cirrhosis, hypertension, and recent cholecystectomy with Dr. Zamora on 10/04/2021. Patient is a poor historian. He presented to the ED yesterday with complaints of abdominal pain, low blood pressure, nausea, vomiting, and leakage of closure sites from previous surgery. He reported he had been in the hospital for a few days and that his cholecystectomy was 2-3 years ago. He reports his abdominal pain is resolved since admission. He said time made it better; nothing made it worse. He endorsed associated malaise. He denied radiation of any pain. Ac cording to nursing staff, his umbilical incision was leaking serous fluid that soaked through a dressing in 1 hour. He reported complete resolution of his sypmtoms at the time of our encounter this morning. Allergies and Home Medications Allergies Coded Allergies: No Known Drug Allergies (Unverified , 10/04/21) Patient Home Medication List Glutathione (Glutathione-l) 5 Gm Powder, 5 GM MC DAILY, (Reported) Entered as Reported by: DEVON WILLIAM on 02/11/20 1347 Hydrocodone/Acetaminophen (Hydrocodone-Acetamin 7.5-325) 1 Each Tablet, 1 EACH PO Q4H PRN for PAIN-BREAKTHROUGH Prescribed by: JUANITA GARCIA on 10/04/21 0950 Metoprolol Succinate (Metoprolol Succinate) 25 Mg Tab.er.24h, 25 MG PO DAILY, (Reported) Entered as Reported by: BUCK JORGE on 03/31/18 1416 Milk Thistle (Milk Thistle) 175 Mg Tablet, 375 MG PO DAILY, (Reported) Entered as Reported by: DEVON WILLIAM on 02/11/20 1347 Spironolactone (Aldactone) 50 Mg Tablet, 50 MG PO DAILY Prescribed by: TYESHA GUTIERREZ on 04/01/18 1153 Vitamin B Complex (Vitamin B Complex) 1 Each Capsule, 1 EACH PO DAILY, (Reported) Entered as Reported by: DEVON WILLIAM on 02/11/20 1347 Past Vdzajnw-Pdxoqy-Mxaqwp Hx Patient Social History Smoking Status: Former Smoker (Smoked 0.75 PPD for 18 years) Former Smoker, Quit: Feb 14, 1991 Type Used: Cigars 2nd Hand Smoke Exposure: No Recent Hopitalizations: No Alcohol Use?: Yes Have you traveled recently?: No Immunizations Up To Date Date of Influenza Vaccine: Apr 11, 2021 Seasonal Allergies Seasonal Allergies: No Surgeries History of Surgeries: Yes (LT KNEE ACL REPAIR, PILONDIAL CYSTECTOMY) Surgeries: Orthopedic, Tonsillectomy Respiratory History of Respiratory Disorde: No Cardiovascular History of Cardiac Disorders: Yes (TACHYCARDIA) Cardiac Disorders: Hypertension Neurological History of Neurological Disord: No Genitourinary History of Genitourinary Disor: No Gastrointestinal History of Gastrointestinal Di: Yes (LIVER DISEASE WITH ASCITES) Gastrointestinal Disorders: Liver Disease/Jaundice, Cirrhosis, Gall Bladder Disease Musculoskeletal History of Musculoskeletal Dis: Yes Musculoskeletal Disorders: Back Injury, Chronic Back Pain Endocrine History of Endocrine Disorders: No HEENT History of HEENT Disorders: Yes (WEARS GLASSES) Loss of Vision: Denies Hearing Impairment: Denies Cancer History of Cancer: No Psychosocial History of Psychiatric Problem: No Integumentary History of Skin or Integumenta: No Blood Transfusions History of Blood Disorders: No Adverse Reaction to a Blood Tr: No Family Medical History Significant Family History: No Pertinent Family Hx, Cancer (Brain cancer in father, breast cancer in mother) Review of Systems-General Constitutional: No chills, No fever EENTM: No blurred vision, No double vision Cardiovascular: No chest pain, No palpitations Gastrointestinal: No abdominal pain, No nausea (denied at time of exam), No vomiting (denied at time of exam) Psychiatric/Neurological: Denies Headache, Denies Numbness Physical Exam-General Problems Physical Exam Vital Signs Vital Signs - First Documented 10/20/21 10/20/21 10/20/21 14:48 19:42 20:20 Temp 36.3 Pulse 125 Resp 18 B/P (MAP) 94/61 (72) Pulse Ox 100 O2 Delivery Room Air Capillary Refill : Less Than 3 Seconds General Appearance: WD/WN, no apparent distress HEENT: PERRL/EOMI; No pale conjunctivae (R), No pale conjunctivae (L) Neck: non-tender, supple, normal inspection; No lymphadenopathy (R), No lym phadenopathy (L) Respiratory: chest non-tender, lungs clear, normal breath sounds, no respiratory distress, no accessory muscle use Cardiovascular: normal peripheral pulses, no edema, no murmur, tachycardia Peripheral Pulses: 2+ Radial Pulses (R), 2+ Radial Pulses (L) Gastrointestinal: normal bowel sounds, non tender, soft, other (Umbilical laparoscopic port site with serous drainage. Non tender and not erythematous. Other sites clean and dry.) Extremities: non-tender, normal inspection, no pedal edema Neurologic/Psychiatric: no motor/sensory deficits, alert, normal mood/affect; No oriented x 3 (Knows name, place, event, and president. Thought it was 2023 and thought his lap giovanny was 2-3 years ago) Lymphatic: no adenopathy (Head and neck) Data Review Labs Laboratory Tests 10/20/21 14:45: White Blood Count 20.2H, Red Blood Count 3.18L, Hemoglobin 13.3, Hematocrit 36L, Mean Corpuscular Volume 114H, Mean Corpuscular Hemoglobin 42H, Mean Corpuscular Hemoglobin Concent 37H, Red Cell Distribution Width 12.4, Platelet Count 191, Mean Platelet Volume 11.0, Immature Granulocyte % (Auto) 1, Neutrophils (%) (Auto) 84H, Lymphocytes (%) (Auto) 6L, Monocytes (%) (Auto) 9, Eosinophils (%) (Auto) 0, Basophils (%) (Auto) 0, Neutrophils # (Auto) 16.9H, Lymphocytes # (Auto) 1.2, Monocytes # (Auto) 1.9H, Eosinophils # (Auto) 0.0, Basophils # (Auto) 0.0, Immature Granulocyte # (Auto) 0.2H, Neutrophils % (Manual) 87, Lymphocytes % (Manual) 5, Monocytes % (Manual) 8, Toxic Granulation 1+, Macrocytosis MODERATE, Prothrombin Time 18.0H, INR Comment 1.4, Activated Partial Thromboplast Time 32, Sodium Level 126L, Potassium Level 4.6, Chloride Level 97L, Carbon Dioxide Level 12L, Anion Gap 17H, Blood Urea Nitrogen 73H, Creatinine 2.48H, Estimat Glomerular Filtration Rate 26, BUN/Creatinine Ratio 29, Glucose Level 179H, Calcium Level 8.6, Corrected Calcium 9.7, Total Bilirubin 3.1H, Aspartate Amino Transf (AST/SGOT) 133H, Alanine Aminotransferase (ALT/SGPT) 98H, Alkaline Phosphatase 119, C-Reactive Protein High Sensitivity 3.22H, Total Protein 6.6, Albumin 2.6L, Serum Alcohol < 10 10/20/21 15:25: Lactic Acid Level 3.19*H 10/20/21 16:13: Urine Color ORANGE, Urine Clarity CLEAR, Urine pH 5.5, Urine Specific [place] >=1.030, Urine Protein NEGATIVE, Urine Glucose (UA) NEGATIVE, Urine Ketones NEGATIVE, Urine Nitrite NEGATIVE, Urine Bilirubin NEGATIVE, Urine Urobilinogen 0.2, Urine Leukocyte Esterase NEGATIVE, Urine RBC (Auto) NEGATIVE, Urine RBC NONE, Urine WBC NONE, Urine Squamous Epithelial Cells NONE, Urine Crystals PRESENTH, Urine Uric Acid Crystals MODERATEH, Urine Bacteria TRACE, Urine Casts NONE, Urine Mucus NEGATIVE, Urine Culture Indicated NO 10/20/21 18:09: Lactic Acid Level 2.89*H 10/20/21 20:13: Sodium Level 129L, Potassium Level 4.6, Chloride Level 102, Carbon Dioxide Level 14L, Anion Gap 13, Blood Urea Nitrogen 66H, Creatinine 2.22H, Estimat Glomerular Filtration Rate 29, BUN/Creatinine Ratio 30, Glucose Level 147H, Lactic Acid Level 2.38*H, Calcium Level 7.9L, Corrected Calcium 9.2, Total Bilirubin 2.9H, Aspartate Amino Transf (AST/SGOT) 131H, Alanine Aminotransferase (ALT/SGPT) 92H, Alkaline Phosphatase 109, Total Protein 6.0L, Albumin 2.4L 10/20/21 22:24: Lactic Acid Level 2.67*H 10/20/21 23:23: Blood Gas Puncture Site UNKNOWN, Blood Gas Patient Temperature 36.5, Arterial Blood pH 7.45H, Arterial Blood Partial Pressure CO2 21L, Arterial Blood Partial Pressure O2 75L, Arterial Blood HCO3 14*L, Arterial Blood Total CO2 14.8L, Arterial Blood Oxygen Saturation 96, Arterial Blood Base Excess -9.3L, Alo Test UNKNOWN, Blood Gas Ventilator Setting NO, Blood Gas Inspired Oxygen UNKNOWN 10/21/21 00:20: Lactic Acid Level 2.86*H 10/21/21 02:25: Lactic Acid Level 3.15*H 10/21/21 04:27: Lactic Acid Level 3.65*H, White Blood Count 12.3H, Red Blood Count 2.58L, Hemoglobin 10.8L, Hematocrit 30L, Mean Corpuscular Volume 117H, Mean Corpuscular Hemoglobin 42H, Mean Corpuscular Hemoglobin Concent 36, Red Cell Distribution Width 12.7, Platelet Count 142, Mean Platelet Volume 10.9, Immature Granulocyte % (Auto) 1, Neutrophils (%) (Auto) 76H, Lymphocytes (%) (Auto) 10L, Monocytes (%) (Auto) 13H, Eosinophils (%) (Auto) 0, Basophils (%) (Auto) 0, Neutrophils # (Auto) 9.4H, Lymphocytes # (Auto) 1.2, Monocytes # (Auto) 1.6H, Eosinophils # (Auto) 0.0, Basophils # (Auto) 0.0, Immature Granulocyte # (Auto) 0.1, Sodium Level 133L, Potassium Level 4.4, Chloride Level 104, Carbon Dioxide Level 13L, Anion Gap 16H, Blood Urea Nitrogen 55H, Creatinine 1.79H, Estimat Glomerular Filtration Rate 38, BUN/Creatinine Ratio 31, Glucose Level 139H, Calcium Level 8.0L, Corrected Calcium 9.1, Phosphorus Level 3.1, Magnesium Level 2.1, Total Bilirubin 2.9H, Aspartate Amino Transf (AST/SGOT) 120H, Alanine Aminotransferase (ALT/SGPT) 82H, Alkaline Phosphatase 93, Total Protein 5.6L, Albumin 2.6L 10/21/21 06:40: Lactic Acid Level 2.46*H 10/21/21 08:50: Lactic Acid Level 3.40*H, Ammonia 35H Radiology Date of Exam:10/20/21 CT ABDOMEN/PELVIS WO PROCEDURE: CT abdomen and pelvis without contrast. TECHNIQUE: Multiple contiguous axial images were obtained through the abdomen and pelvis without the use of intravenous contrast. Auto Exposure Controls were utilized during the CT exam to meet ALARA standards for radiation dose reduction. DATE: October 20, 2021. COMPARISON: Ultrasound abdomen complete July 13, 2021. CT abdomen and pelvis February 20, 2018. INDICATION: 81-year-old male, nausea. Leak at incision site status post cholecystectomy 2-1/2 weeks ago. FINDINGS: There are limitations for evaluation of the abdominal organs, neoplastic processes, abscess, and limited evaluation of the vasculature relating to the lack of intravenous contrast. There is respiratory motion artifact. The heart is not enlarged. There is no pericardial effusion. The liver contours are mildly nodular suggesting possible cirrhosis. Recommend correlation with liver function test. The gallbladder is surgically absent. There is no intrahepatic or extrahepatic bile duct dilation. The main pancreatic duct is not abnormally dilated. Limited noncontrast assessment of the pancreatic parenchyma is unremarkable. Splenic calcifications likely relate to prior granulomatous disease. The spleen is not enlarged. The adrenal glands are unremarkable. Unremarkable appearance of the renal parenchyma. The urinary collecting systems are not distended. There is no identified renal or ureteral stone. The urinary bladder is unremarkable. There is mild diverticulosis without evidence to suggest acute diverticulitis. The intestinal tract is not distended. There is no free intraperitoneal air. There is a small volume ascites. There is no identified drainable fluid collection. There are atherosclerotic calcifications. There is no identified abnormally enlarged lymph node in the abdomen or pelvis meeting CT size criteria for adenopathy. There are multilevel degenerative changes of the spine. There is no identified acute bony abnormality. IMPRESSION: CT abdomen and pelvis: 1. Findings questionable for cirrhosis with small volume ascites. Recommend correlation with liver function test. No splenomegaly. 2. No identified acute abnormality in the abdomen or pelvis. Assessment/Plan Assessment/Plan Assessment/Plan Assessment: Abdominal pain - vague and nongeneralized s/p laparoscopic cholecystectomy - port sites healing - umbilical site with serous drainage Nodular liver cirrhosis - small volume ascites noted on CT - likely secondary to alcoholic hepatitis - elevated liver enzymes, AST > ALT Hyperbilirubinemia - total bilirubin 2.9 Hyperammonemia - 35 this morning Leukocytosis - 20.2 on admission - 12.3 this morning GONZALES - BUN and Cr 55 and 1.79 - Unsure of baseline Lactic acidosis - Trend Hypotension - BP around 100/60 - patient reports his BP is normally low Plan: Continue ciprofloxacin and metronidazole. Continue fluids. Monitor blood pressure, administer pressors if indicated. Abdominal dressing change PRN. Symptomatic control for nausea and vomiting Patient of Dr. Maries, will sign off back to him tomorrow RAJENDRA FRANKS DO 10/21/21 1509: History of Present Illness History of Present Illness History of Present Illness Consult requested by Dr. Walker for sepsis/ascites/s/p cholecystectomy. Patient is a 81 year old male who underwent laparoscopic cholecystectomy on 10/04/21. Had ascitic fluid at that time removed. Patient poor historian. He was having abdominal pain he states, but now has resolved. He states he had cholecystectomy about 2 years ago. He is oriented to place and person. Patient wanting to go home. He is having ascitic fluid draining from incisions. He had elevated wbc when presented to ED. He had ct scan showing low volume ascites and cirrhoitic appearance of liver. Patient curently on Cirpo/FLagyl. Denies n/v fever sweats chills shortness of breath or chest pain. Allergies and Home Medications Allergies Coded Allergies: No Known Drug Allergies (Unverified , 10/04/21) Patient Home Medication List Home Medication List Reviewed: Yes Glutathione (Glutathione-l) 5 Gm Powder, 5 GM MC DAILY, (Reported) Entered as Reported by: DEVON WILLIAM on 02/11/20 1347 Hydrocodone/Acetaminophen (Hydrocodone-Acetamin 7.5-325) 1 Each Tablet, 1 EACH PO Q4H PRN for PAIN-BREAKTHROUGH Prescribed by: JUANITA GARCIA on 10/04/21 0950 Metoprolol Succinate (Metoprolol Succinate) 25 Mg Tab.er.24h, 25 MG PO DAILY, (Reported) Entered as Reported by: BUCK JORGE on 03/31/18 1416 Milk Thistle (Milk Thistle) 175 Mg Tablet, 375 MG PO DAILY, (Reported) Entered as Reported by: DEVON WILLIAM on 02/11/20 1347 Spironolactone (Aldactone) 50 Mg Tablet, 50 MG PO DAILY Prescribed by: TYESHA GUTIERREZ on 04/01/18 1153 Vitamin B Complex (Vitamin B Complex) 1 Each Capsule, 1 EACH PO DAILY, (Reported) Entered as Reported by: DEVON WILLIAM on 02/11/20 1347 Past Pnbnpzy-Oggvfn-Izrpvr Hx Surgeries History of Surgeries: Yes (LT KNEE ACL REPAIR, PILONDIAL CYSTECTOMY) Surgeries: Gallbladder Reviewed Nursing Assessment Reviewed/Agree w Nursing PMH: Yes Family Medical History Significant Family History: No Pertinent Family Hx Review of Systems-General Constitutional: No chills, No fever EENTM: No blurred vision, No double vision Respiratory: No cough, No dyspnea on exertion Cardiovascular: No chest pain, No palpitations Gastrointestinal: abdominal pain; No nausea (denied at time of exam), No vomiting (denied at time of exam) Genitourinary: No decreased output, No discharge Musculoskeletal: No back pain, No joint pain Skin: No change in color, No change in hair/nails Psychiatric/Neurological: Denies Headache, Denies Numbness All Other Systems Reviewed Negative Unless Noted: Yes (Negative excepted noted.) Physical Exam-General Problems Physical Exam General Appearance: WD/WN, no apparent distress HEENT: PERRL/EOMI, normal ENT inspection Neck: non-tender, supple Respiratory: chest non-tender, no respiratory distress, no accessory muscle use Cardiovascular: no edema, no JVD, tachycardia Gastrointestinal: soft, distended (minimally, ascitic appearing fluid draining), other (Umbilical laparoscopic port site with ascitic drainage. Non tender and not erythematous. Other sites clean and dry.) Rectal: deferred Back: no CVA tenderness, no vertebral tenderness Extremities: non-tender, normal inspection Neurologic/Psychiatric: no motor/sensory deficits, alert, normal mood/affect; No oriented x 3 (Knows name, place, event, and president. Thought it was 2023 and thought his lap giovanny was 2-3 years ago) Skin: normal color, warm/dry Lymphatic: no adenopathy (Head and neck) Assessment/Plan Assessment/Plan Assessment/Plan Abdominal pain - vague and generalized, no pain at this time. s/p laparoscopic cholecystectomy - port sites healing - umbilical site with ascitic drainage Nodular liver cirrhosis - small volume ascites noted on CT - likely secondary to alcoholic hepatitis - elevated liver enzymes, AST > ALT -Has had regular EtOh use. Hyperbilirubinemia - total bilirubin 2.9 Hyperammonemia - 35 this morning Leukocytosis - 20.2 on admission - 12.3 this morning GONZALES - BUN and Cr 55 and 1.79 - Unsure of baseline Lactic acidosis - Trend Hypotension - BP around 100/60 - patient reports his BP is normally low Continue ciprofloxacin and metronidazole. Continue fluids. Monitor blood pressure, administer pressors if indicated. Abdominal dressing change PRN. Symptomatic control for nausea and vomiting Patient of Dr. Tamayo, he is aware he's been admitted and will see him tomorrow Supervisory-Addendum Brief Verification & Attestation Participated in pt care: history, MDM, physical Personally performed: exam, history, MDM, supervision of care Care discussed with: Medical Student Procedures: n/a Results interpretation: Verified all documentation Verification and Attestation of Medical Student E/M Service A medical student performed and documented this service in my presence. I reviewed and verified all information documented by the medical student and made modifications to such information, when appropriate. I personally performed the physical exam and medical decision making. Rajendra Franks, Oct 21, 2021,15:14 REBECCA GROSS Oct 21, 2021 09:53 RAJENDRA FRANKS DO Oct 21, 2021 15:09
[2021-10-21] MEDS: LORazepam 0.5 MG (ATIVAN) TABLET PO PRN (15:18)
[2021-10-22] MEDS: NS IV 1000 ML 1,000 ML IV SCH ×2 (05:11→14:11)
[2021-10-22 06:01] LABS: EOSINOPHILS % (AUTO) 0 % (0-10); HEMOGLOBIN 11.6 g/dL (13.3-17.7); MEAN PLATELET VOLUME 11.2 fL (9.0-12.2); MONOCYTES # (AUTO) 1.5 10^3/uL (0.0-1.0)
[2021-10-22 06:02] LABS: BASOPHILS % (AUTO) 0 % (0-10); HEMATOCRIT 32 % (40-54); LYMPHOCYTES # (AUTO) 0.9 10^3/uL (1.0-4.0); LYMPHOCYTES % (AUTO) 10 % (12-44); MEAN CORPUSCULAR HEMOGLOBIN 43 pg (25-34); MEAN CORPUSCULAR HGB CONC 36 g/dL (32-36); MEAN CORPUSCULAR VOLUME 118 fL (80-99); MONOCYTES % (AUTO) 15 % (0-12); NEUTROPHILS % (AUTO) 74 % (42-75); PLATELET COUNT 109 10^3/uL (130-400); WHITE BLOOD COUNT 9.5 10^3/uL (4.3-11.0)
[2021-10-22] MEDS: D5 LR IV SOLUTION 1,000 ML IV SCH (06:10)
[2021-10-22 06:23] LABS: ALBUMIN 2.4 GM/DL (3.2-4.5); BILIRUBIN,TOTAL 3.5 MG/DL (0.1-1.0); CALCIUM 8.2 MG/DL (8.5-10.1); CREATININE SERUM 1.35 MG/DL (0.60-1.30); MAGNESIUM 1.9 MG/DL (1.6-2.4); PHOSPHORUS 2.5 MG/DL (2.3-4.7); POTASSIUM 4.4 MMOL/L (3.6-5.0); TOTAL PROTEIN 5.3 GM/DL (6.4-8.2)
--- NOTE | 2021-10-22 08:19 | Diagnostic Imaging Report ---
INDICATION: Abdominal pain Abdominal sonography performed in all 4 quadrants to evaluate for ascites. No significant ascites is seen. IMPRESSION: Limited abdominal sonography demonstrates no evidence of significant ascites. Dictated by: Dictated on workstation # [id number]
[2021-10-22] MEDS: THIAMINE INJECTION 100 MG in NS (IVPB) 50 ML IV SCH (08:40)
[2021-10-22] MEDS: CIPROFLOXACIN IV 400MG/200ML 200 ML IV SCH (08:44)
[2021-10-22] MEDS: FOLIC ACID INJECTION 1 MG in NS (IVPB) 50 ML IV SCH (08:44)
[2021-10-22] MEDS: metroNIDAZOLE 500MG/100ML IVPB 100 ML IV SCH (08:44)
[2021-10-22] MEDS ORDERED: SULF1TAB38 PO (11:31)
[2021-10-22] MEDS ORDERED: SPIR50TA4 PO (11:31)
[2021-10-22] MEDS ORDERED: GLUT500C6 PO (11:31)
[2021-10-22] MEDS: AMPICILLIN/SULBACTAM INJECTION 1.5 GM in NS (IVPB) 100 ML IV SCH ×2 (12:44→17:42)
--- NOTE | 2021-10-22 13:41 | Physical Therapy Evaluation ---
PT Evaluation-General Medical Diagnosis Admission Date Oct 20, 2021 at 17:30 Medical Diagnosis: post op Gabrielle Onset Date: Oct 20, 2021 Therapy Diagnosis Therapy Diagnosis: generalized weakness/debility Height/Weight Height (Feet): 5 Height (Inches): 9.00 Weight (Pounds): 179 Weight (Ounces): 0.0 Precautions Precautions/Isolations: Fall Prevention, Standard Precautions Referral Physician: Blade Reason for Referral: Evaluation/Treatment Medical History Pertinent Medical History: HTN Additional Medical History liver disease Current History s/p cholecystectomy 10/04/2021 Reviewed History: Yes Social History Home: Single Level Current Living Status: Alone Prior Prior Level of Function SCALE: Activities may be completed with or without assistive devices. 3-Pgswhpfygx-tbbuali completes the activity by him/herself with no assistance from a helper. 5-Set-up or Clean-up Assistance-helper sets up or cleans up; patient completes activity. [place] assists only prior to or following the activity. 4-Supervision or Touching Assistance-helper provides verbal cues and/or touching/steadying and/or contact guard assistance as patient completes activi ty. Assistance may be provided throughout the activity or intermittently. 3-Partial/Moderate Assistance-helper does LESS THAN HALF the effort. [place] lifts, holds or supports trunk or limbs, but provides less than half the effort. 2-Substantial/Maximal Assistance-helper does MORE THAN HALF the effort. [place] lifts or holds trunk or limbs and provides more than half the effort. 4-Bqfvhapao-qvlzsn does ALL the effort. Patient does none of the effort to complete the activity. Or, the assistance of 2 or more helpers is required for the patient to complete the activity. If activity was not attempted, code reason: 7-Patient Refused. 9-Not Applicable-not attempted and the patient did not perform the activity before the current illness, exacerbation or injury. 10-Not Attempted due to Environmental Limitations-(lack of equipment, weather restraints, etc.). 88-Not Attempted due to Medical Conditions or Safety Concerns. Bed Mobility: 6 Transfers (B,C,W/C): 6 Gait: 6 Stairs: 6 Indoor Mobility (Ambulation): Independent (furniture walks) Prior Devices Use: None PT Evaluation-Current Subjective Patient agrees to PT. Noted confusion. Objective Patient Orientation: Confused Attachments: Lara Catheter, IV ROM/Strength ROM Lower Extremities bilateral LE WFL Strength Lower Extremities 3+/5 grossly bilateral Integumentary/Posture Integumentary refer to nursing notes Bladder Incontinence: Lara Cath Posture slight trunk flexed posture Neuromuscular (Tone, Coordination, Reflexes) grossly intact Sensory Vision: Wears Glasses Hearing: Impaired Transfers Lying to Sitting/Side of Bed(Q: 3 Sit to Stand (QC): 4 Chair/Rci-hh-Wklkj Xfer(QC): 4 Gait Does the Patient Walk?: Yes Mode of Locomotion: Walk Anticipated Mode of Locomotion: Walk Walk 10 feet (QC): 3 Walk 50 ft with 2 Turns(QC): 3 Distance: 50' Gait Assistive Device: FWW Comments/Gait Description difficulty using FWW due to mild confusion and has not used one prior (patient furniture walks at home per his report) Balance Sitting Static: Normal Sitting Dynamic: Normal Standing Static: Fair Standing Dynamic: Fair Assessment/Needs 81 y.o. male, will benefit from skilled PT to address functional strength and mobility to improve current LOF. Patient confused and fatigues with minimal activity. Rehab Potential: Guarded PT Emissions Engineer Goals Emissions Engineer Goals PT Intermediate Goals Time Frame: November 03, 2021 Roll Left & Right (QC): 6 Sit to Lying (QC): 6 Lying-Sitting on Side/Bed(QC): 6 Sit to Stand (QC): 6 Chair/Znk-si-Stdau Xfer(QC): 6 Toilet Transfer (QC): 6 Walk 10 feet (QC): 6 Walk 50ft with 2 Turns (QC): 6 Walk 150 ft (QC): 6 PT Plan Problem List Problem List: Activity Tolerance, Functional Strength, Safety, Balance, Gait, Transfer, Bed Mobility Treatment/Plan Treatment Plan: Continue Plan of Care Treatment Plan: Bed Mobility, Education, Functional Activity Ran, Functional Strength, Gait, Safety, Therapeutic Exercise, Transfers Treatment Duration: November 03, 2021 Frequency: 6 times per week Estimated Hrs Per Day: .25 hour per day Patient and/or Family Agrees t: Yes Time/GCodes Time In: 1306 Time Out: 1322 Total Billed Treatment Time: 16 Total Billed Treatment 1 visit EVModC 16 min DIANA CHAIREZ PT Oct 22, 2021 13:41
--- NOTE | 2021-10-22 14:55 | Progress Note - Hospitalist ---
Subjective HPI/CC On Admission Date Seen by Provider: Oct 22, 2021 Time Seen by Provider: 09:00 Patient is 81-year-old male past medical history of cirrhosis, hypertension, and recent cholecystectomy who presented to the emergency room due to drainage from surgical wounds and low blood pressure. He is a very poor historian but per the ER note he also complained of nausea and decreased appetite. He told me his surgery was 2 years ago though records reveal it was much more recent than that (10/04). He does not complain of any of this to me and states he is feeling very well. When asked why he came to the hospital then if he was feeling well he states because his sister is a nurse. Reviewing records reveals he was seen in the emergency department last week for drainage from surgical incisions and a suture was placed. He saw Dr. ALBERT's nurse practitioner on October 17 for removal. Since then he has continued to have drainage. He also continues to drink 1-2 glasses of wine a day. Subjective/Events-last exam He is doing well. He has no complaints or concerns. He denies fevers. He denies pain. He denies trouble breathing. He has not had any nausea, vomiting, or diarrhea. He has not been able to eat or drink yet. Focused Exam Lactate Level 10/21/21 10:44: Lactic Acid Level 2.93*H 10/21/21 12:52: Lactic Acid Level 3.22*H 10/21/21 17:08: Lactic Acid Level 2.39*H Objective Exam Vital Signs Vital Signs Date Time Temp Pulse Resp B/P (MAP) Pulse Ox O2 Delivery O2 Flow Rate FiO2 10/22/21 14:00 130 14 86/64 100 Room Air 10/22/21 12:00 36.4 Capillary Refill : Less Than 3 Seconds General Appearance: No Apparent Distress, WD/WN Respiratory: Lungs Clear, No Respiratory Distress Cardiovascular: No Murmur, Tachycardia Gastrointestinal: Soft, Abnormal Bowel Sounds (hypoactive), Distended Extremity: Normal Inspection, Pedal Edema Neurologic/Psychiatric: Alert, Normal Mood/Affect Skin: Warm/Dry, Jaundice Results/Procedures Lab Laboratory Tests 10/22/21 05:50 Patient resulted labs reviewed. Imaging: Reviewed Imaging Report Assessment/Plan Assessment and Plan Assess & Plan/Chief Complaint Severe sepsis GONZALES Recent cholecystectomy Possible SBP Decompensated cirrhosis Cultures with Enterococcus Transition to Unasyn Continue fluids Surgery following DVT ppx: SCDs Critical Care Critically Ill Patient PJ NATARAJAN MD Oct 22, 2021 14:55
--- NOTE | 2021-10-22 15:40 | Tele-ICU Progress Note ---
Subjective Date Seen by a Provider: Oct 22, 2021 Time Seen by a Provider: 09:40 Subjective/Events-last exam (Tele-ICU Physician , Progress Note ) Available chart/ vitals / labs / Images reviewed Video assessment done using teleICU camera, rest of exam as per RN Discussed with RN , EXAM PER RN Events overnight : Afebrile FiO2 - ra I/O = even Drips: Pressors: , hemodynamically stable Consultants: sx Hospital course: : 81 y/o male presented to the ED from home. Recent PSH of lap cholecyst ectomy on (10/04) with incisional draniage and recent UTI on bactrim. A/P Severe sepsis - improving on abx - cpm GONZALES - improving Recent cholecystectomy Possible SBP - as per sx Decompensated cirrhosis +cx Enterococcus - on Unasyn - monitor volume status h/o ETON - thiamine , folate VTE Prophylaxis: scd ( plt 109 , inr 1.4 Stress Ulcer Prophylaxis: Plans in collaboration with bedside consultants and IM MDs. Discussed with RN to reach out if any questions or concerns A total of 20 minutes of critical care time was devoted to this patient today, required to treat and/or prevent further deterioration of critical care condition ( as above) Sepsis Event Evaluation Height, Weight, BMI Height: 5'9.00" Weight: 179lbs. 0.0oz. 81.835183sn; 29.40 BMI Method: Focused Exam Lactate Level 10/21/21 10:44: Lactic Acid Level 2.93*H 10/21/21 12:52: Lactic Acid Level 3.22*H 10/21/21 17:08: Lactic Acid Level 2.39*H Exam Exam Patient acknowledged, consented, and participated in this virtual visit which was conducted using real time audio/video Vital Signs Date Time Temp Pulse Resp B/P (MAP) Pulse Ox O2 Delivery O2 Flow Rate FiO2 10/22/21 15:22 36.8 10/22/21 15:00 129 25 87/61 98 Room Air 10/22/21 14:00 130 14 86/64 100 Room Air 10/22/21 13:00 130 14 100/77 98 Room Air 10/22/21 12:53 126 10/22/21 12:00 117 22 82/48 96 Room Air 10/22/21 12:00 36.4 10/22/21 12:00 97 Room Air 10/22/21 11:00 124 17 88/56 97 Room Air 10/22/21 10:00 118 22 99/57 100 Room Air 10/22/21 09:00 120 24 100/64 100 Room Air 10/22/21 08:00 118 19 89/60 99 Room Air 10/22/21 08:00 97 Room Air 10/22/21 08:00 36.2 10/22/21 07:57 120 10/22/21 07:00 116 21 85/45 98 Room Air 10/22/21 06:00 124 24 92/59 99 Room Air 10/22/21 05:00 114 19 99/64 96 Room Air 10/22/21 04:00 134 21 115/75 100 Room Air 10/22/21 03:50 97 Room Air 10/22/21 03:50 36.3 Room Air 10/22/21 03:00 112 23 94/57 97 Room Air 10/22/21 02:00 117 23 100/64 96 Room Air 10/22/21 01:00 120 10/22/21 01:00 120 30 95/71 97 Room Air 10/22/21 00:00 117 16 92/71 99 Room Air 10/21/21 23:20 36.9 Room Air 10/21/21 23:20 99 Room Air 10/21/21 23:00 109 32 104/60 95 Room Air 10/21/21 22:00 112 22 99/61 95 Room Air 10/21/21 21:00 121 26 92/59 95 Room Air 10/21/21 20:00 114 21 90/58 97 Room Air 10/21/21 20:00 37.7 10/21/21 19:15 100 Room Air 10/21/21 19:00 128 10/21/21 19:00 36.4 120 25 91/70 100 Room Air 10/21/21 18:00 122 27 108/65 99 Room Air 10/21/21 17:00 118 16 89/52 100 Room Air 10/21/21 16:00 36.3 10/21/21 16:00 116 24 108/79 100 Room Air 10/21/21 15:52 99 Room Air I & O 10/22/21 07:00 Intake Total 2425 ml Output Total 1325 ml Balance 1100 ml Height & Weight Height: 5'9.00" Weight: 179lbs. 0.0oz. 81.432104ke; 29.40 BMI Method: General Appearance: No Apparent Distress, WD/WN HEENT: PERRL/EOMI, Moist Mucous Membranes; No Scleral Icterus (L), No Scleral Icterus (R) Neck: Full Range of Motion, Normal Inspection, Non Tender, Supple Respiratory: Lungs Clear, No Respiratory Distress Cardiovascular: No Murmur, Tachycardia Capillary Refill: Less Than 3 Seconds Peripheral Pulses: 2+ Radial Pulses (R), 2+ Radial Pulses (L) Gastrointestinal: soft, distended (minimally, ascitic appearing fluid draining), other (Umbilical laparoscopic port site with ascitic drainage. Non tender and not erythematous. Other sites clean and dry.) Extremity: Normal Inspection, Pedal Edema Neurologic/Psychiatric: Alert, Normal Mood/Affect Skin: Warm/Dry, Jaundice Results Lab Laboratory Tests 10/20/21 20:13 10/21/21 04:27 10/22/21 05:50 Assessment/Plan Assessment/Plan ` PIYUSH ODONNELL MD Oct 22, 2021 15:40
[2021-10-22] MEDS: NOREPINEPHRINE 8 MG/250 ML 250 ML IV SCH (15:52)
[2021-10-22] MEDS ORDERED: LIDOCAINE/EPI 1%-1:100,000 (XYLOCAINE) 20ML INJ NR (16:00)
[2021-10-22] MEDS ORDERED: LIDOCAINE/EPI 1%-1:100,000 (XYLOCAINE) 10 ML INJ STA (17:21)
--- NOTE | 2021-10-22 18:13 | Progress Note ---
Subjective Date Seen by a Provider: Oct 22, 2021 Time Seen by a Provider: 18:00 Subjective/Events-last exam doing ok. still has small leak of ascites per umbilical wound. 5mm port wounds have healed. only small area of leak around 10mm wound. no redness/erythema. Focused Exam Lactate Level 10/21/21 10:44: Lactic Acid Level 2.93*H 10/21/21 12:52: Lactic Acid Level 3.22*H 10/21/21 17:08: Lactic Acid Level 2.39*H Objective Exam Vital Signs Date Time Temp Pulse Resp B/P (MAP) Pulse Ox O2 Delivery O2 Flow Rate FiO2 10/22/21 17:00 141 38 102/73 99 Room Air 10/22/21 16:00 97 Room Air 10/22/21 16:00 74 27 96/68 99 Room Air 10/22/21 15:52 120 82/54 10/22/21 15:22 36.8 10/22/21 15:00 129 25 87/61 98 Room Air 10/22/21 14:00 130 14 86/64 100 Room Air 10/22/21 13:00 130 14 100/77 98 Room Air 10/22/21 12:53 126 10/22/21 12:00 117 22 82/48 96 Room Air 10/22/21 12:00 36.4 10/22/21 12:00 97 Room Air 10/22/21 11:00 124 17 88/56 97 Room Air 10/22/21 10:00 118 22 99/57 100 Room Air 10/22/21 09:00 120 24 100/64 100 Room Air 10/22/21 08:00 118 19 89/60 99 Room Air 10/22/21 08:00 97 Room Air 10/22/21 08:00 36.2 10/22/21 07:57 120 10/22/21 07:00 116 21 85/45 98 Room Air 10/22/21 06:00 124 24 92/59 99 Room Air 10/22/21 05:00 114 19 99/64 96 Room Air 10/22/21 04:00 134 21 115/75 100 Room Air 10/22/21 03:50 97 Room Air 10/22/21 03:50 36.3 Room Air 10/22/21 03:00 112 23 94/57 97 Room Air 10/22/21 02:00 117 23 100/64 96 Room Air 10/22/21 01:00 120 10/22/21 01:00 120 30 95/71 97 Room Air 10/22/21 00:00 117 16 92/71 99 Room Air 10/21/21 23:20 36.9 Room Air 10/21/21 23:20 99 Room Air 10/21/21 23:00 109 32 104/60 95 Room Air 10/21/21 22:00 112 22 99/61 95 Room Air 10/21/21 21:00 121 26 92/59 95 Room Air 10/21/21 20:00 114 21 90/58 97 Room Air 10/21/21 20:00 37.7 10/21/21 19:15 100 Room Air 10/21/21 19:00 128 10/21/21 19:00 36.4 120 25 91/70 100 Room Air I & O 10/22/21 07:00 Intake Total 2425 ml Output Total 1325 ml Balance 1100 ml Capillary Refill : Less Than 3 Seconds General Appearance: No Apparent Distress HEENT: PERRL/EOMI Neck: Full Range of Motion Respiratory: Chest Non Tender, Lungs Clear, Normal Breath Sounds Cardiovascular: Regular Rate, Rhythm Gastrointestinal: normal bowel sounds, non tender, soft, other (small area of leakage ascitic fluid from pinpoint area of umbilical inc) Extremity: Normal Capillary Refill Neurologic/Psychiatric: Alert, Oriented x3 Skin: Normal Color Lymphatic: No Adenopathy Results Lab Laboratory Tests 10/22/21 05:50: White Blood Count 9.5, Red Blood Count 2.72L, Hemoglobin 11.6L, Hematocrit 32L, Mean Corpuscular Volume 118H, Mean Corpuscular Hemoglobin 43H, Mean Corpuscular Hemoglobin Concent 36, Red Cell Distribution Width 12.8, Platelet Count 109L, Mean Platelet Volume 11.2, Immature Granulocyte % (Auto) 1, Neutrophils (%) (Auto) 74, Lymphocytes (%) (Auto) 10L, Monocytes (%) (Auto) 15H, Eosinophils (%) (Auto) 0, Basophils (%) (Auto) 0, Neutrophils # (Auto) 7.0, Lymphocytes # (Auto) 0.9L, Monocytes # (Auto) 1.5H, Eosinophils # (Auto) 0.0, Basophils # (Auto) 0.0, Immature Granulocyte # (Auto) 0.1, Percent Immature Platelet Fraction 3.9, Sodium Level 137, Potassium Level 4.4, Chloride Level 109H, Carbon Dioxide Level 14L, Anion Gap 14, Blood Urea Nitrogen 36H, Creatinine 1.35H, Estimat Glomerular Filtration Rate 53, BUN/Creatinine Ratio 27, Glucose Level 166H, Calcium Level 8.2L, Corrected Calcium 9.5, Phosphorus Level 2.5, Magnesium Level 1.9, Total Bilirubin 3.5H, Aspartate Amino Transf (AST/SGOT) 140H, Alanine Aminotransferase (ALT/SGPT) 95H, Alkaline Phosphatase 97, Total Protein 5.3L, Albumin 2.4L Microbiology 10/20/21 MRSA Screen - Final, Complete MRSA not isolated 10/20/21 Gram Stain - Final, Resulted 10/20/21 Wound Culture - Preliminary, Resulted Mixed Bacterial Layla Enterococcus species 10/20/21 Blood Culture - Preliminary, Resulted No growth Assessment/Plan Assessment/Plan Assess & Plan/Chief Complaint liver cirrhosis s/p lap cholecystectomy 10/04/21. likely end stage liver dz. will proceed with placement interrupted figure of 8 sutures across umbilical wound. low protein diet. Na and fluid restriction. cont spironolactone. ok for home when ok with IM. MAMTA ALBERT MD Oct 22, 2021 18:13
[2021-10-23 04:31] LABS: EOSINOPHILS # (AUTO) 0.1 10^3/uL (0.0-0.3); EOSINOPHILS % (AUTO) 1 % (0-10); HEMOGLOBIN 12.3 g/dL (13.3-17.7); LYMPHOCYTES % (AUTO) 12 % (12-44)
[2021-10-23 04:32] LABS: BASOPHILS % (AUTO) 0 % (0-10); HEMATOCRIT 34 % (40-54); LYMPHOCYTES # (AUTO) 1.2 10^3/uL (1.0-4.0); MEAN CORPUSCULAR HEMOGLOBIN 42 pg (25-34); MEAN CORPUSCULAR HGB CONC 36 g/dL (32-36); MEAN CORPUSCULAR VOLUME 118 fL (80-99); MEAN PLATELET VOLUME 10.9 fL (9.0-12.2); MONOCYTES # (AUTO) 1.6 10^3/uL (0.0-1.0); MONOCYTES % (AUTO) 15 % (0-12); NEUTROPHILS # (AUTO) 7.4 10^3/uL (1.8-7.8); NEUTROPHILS % (AUTO) 71 % (42-75); PLATELET COUNT 114 10^3/uL (130-400); WHITE BLOOD COUNT 10.3 10^3/uL (4.3-11.0)
[2021-10-23 04:39] LABS: ALBUMIN 2.3 GM/DL (3.2-4.5)
[2021-10-23 04:40] LABS: POTASSIUM 4.6 MMOL/L (3.6-5.0)
[2021-10-23 04:41] LABS: CALCIUM 8.1 MG/DL (8.5-10.1)
[2021-10-23 04:42] LABS: TOTAL PROTEIN 5.3 GM/DL (6.4-8.2)
[2021-10-23 04:44] LABS: BILIRUBIN,TOTAL 3.6 MG/DL (0.1-1.0)
[2021-10-23 04:45] LABS: PHOSPHORUS 2.9 MG/DL (2.3-4.7)
[2021-10-23 04:46] LABS: CREATININE SERUM 1.27 MG/DL (0.60-1.30)
[2021-10-23 04:49] LABS: MAGNESIUM 1.9 MG/DL (1.6-2.4)
[2021-10-23] MEDS: NOREPINEPHRINE 8 MG/250 ML 250 ML IV SCH ×2 (05:46→17:05)
[2021-10-23] MEDS: AMPICILLIN/SULBACTAM INJECTION 1.5 GM in NS (IVPB) 100 ML IV SCH ×3 (05:46→18:36)
[2021-10-23] MEDS: NS IV 1000 ML 1,000 ML IV SCH ×2 (05:47→08:10)
[2021-10-23] MEDS: D5 LR IV SOLUTION 1,000 ML IV SCH ×2 (05:47→08:10)
[2021-10-23] MEDS: THIAMINE INJECTION 100 MG in NS (IVPB) 50 ML IV SCH (08:28)
[2021-10-23] MEDS: FOLIC ACID INJECTION 1 MG in NS (IVPB) 50 ML IV SCH ×2 (08:29→08:43)
--- NOTE | 2021-10-23 08:36 | Physical Therapy Daily Note ---
PT Daily Note-Current Subjective Pt agrees to PT. Pain Location: No Pain Reported Mental Status Patient Orientation: Normal For Age Attachments: IV Transfers SCALE: Activities may be completed with or without assistive devices. 3-Vnwbohbpxx-svfoqbc completes the activity by him/herself with no assistance from a helper. 5-Set-up or Clean-up Assistance-helper sets up or cleans up; patient completes activity. [place] assists only prior to or following the activity. 4-Supervision or Touching Assistance-helper provides verbal cues and/or touching/steadying and/or contact guard assistance as patient completes activity. Assistance may be provided throughout the activity or intermittently. 3-Partial/Moderate Assistance-helper does LESS THAN HALF the effort. [place] lifts, holds or supports trunk or limbs, but provides less than half the effort. 2-Substantial/Maximal Assistance-helper does MORE THAN HALF the effort. [place] lifts or holds trunk or limbs and provides more than half the effort. 5-Oprfwskfu-eguapq does ALL the effort. Patient does none of the effort to complete the activity. Or, the assistance of 2 or more helpers is required for the patient to complete the activity. If activity was not attempted, code reason: 7-Patient Refused. 9-Not Applicable-not attempted and the patient did not perform the activity before the current illness, exacerbation or injury. 10-Not Attempted due to Environmental Limitations-(lack of equipment, weather restraints, etc.). 88-Not Attempted due to Medical Conditions or Safety Concerns. Roll Left & Right (QC): 4 Lying to Sitting/Side of Bed(Q: 4 Sit to Stand (QC): 4 Chair/Teg-fk-Cmyji Xfer(QC): 4 Toilet Transfer (QC): 4 Gait Training Does the Patient Walk?: Yes Distance: 15' Walk 10 feet (QC): 4 Gait Persons Needed: 1 Gait Assistive Device: FWW slighty unsteady at times Wheelchair Training Does the Pt Use a Wheelchair?: No Exercises Supine Ex: Ankle pumps, Quad Set, Glut sets, Heel Slides, Straight leg raise Supine Reps: 10 Seated Therapy Exercises: Ankle pumps, Long arc quads, Hip flexion Seated Reps: 10 Assessment Current Status: Fair Progress Pt is unsteady at times while walking. Note, elevated HR 156 after ambulation of 15'. Patient denies symptoms. Patient up in recliner with needs met and chair alarm activated. 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 Intermediate Goals PT Intermediate Goals Time Frame: November 03, 2021 Roll Left & Right (QC): 6 Sit to Lying (QC): 6 Lying-Sitting on Side/Bed(QC): 6 Sit to Stand (QC): 6 Chair/Dsy-tn-Lsaho Xfer(QC): 6 Toilet Transfer (QC): 6 Walk 10 feet (QC): 6 Walk 50ft with 2 Turns (QC): 6 Walk 150 ft (QC): 6 PT Plan Treatment/Plan Treatment Plan: Continue Plan of Care Treatment Plan: Bed Mobility, Education, Functional Activity Ran, Functional Strength, Gait, Safety, Therapeutic Exercise, Transfers Treatment Duration: November 03, 2021 Frequency: 6 times per week Estimated Hrs Per Day: .25 hour per day Patient and/or Family Agrees t: Yes Time/GCodes Time In: 725 Time Out: 748 Total Billed Treatment Time: 23 Total Billed Treatment 1, GT (8 min) EX ( 15 min) DIANA CHAIREZ PT Oct 23, 2021 08:36
[2021-10-23] MEDS: LORazepam 0.5 MG (ATIVAN) TABLET PO PRN (10:25)
--- NOTE | 2021-10-23 13:50 | Progress Note ---
Subjective Date Seen by a Provider: Oct 23, 2021 Time Seen by a Provider: 13:30 Subjective/Events-last exam doing ok. still has some mild ascites drainagel per umbilical wound. low bp but states has always been that way. Focused Exam Lactate Level 10/21/21 10:44: Lactic Acid Level 2.93*H 10/21/21 12:52: Lactic Acid Level 3.22*H 10/21/21 17:08: Lactic Acid Level 2.39*H Objective Exam Vital Signs Date Time Temp Pulse Resp B/P (MAP) Pulse Ox O2 Delivery O2 Flow Rate FiO2 10/23/21 13:00 124 25 88/60 98 Room Air 10/23/21 12:41 149 10/23/21 12:00 124 21 84/55 99 Room Air 10/23/21 12:00 36.1 10/23/21 11:00 140 19 80/61 100 Room Air 10/23/21 10:00 134 19 89/52 100 Room Air 10/23/21 09:00 133 31 80/56 99 Room Air 10/23/21 08:00 98 Room Air 10/23/21 08:00 135 28 81/52 95 Room Air 10/23/21 08:00 37.1 10/23/21 07:00 120 29 104/72 96 Room Air 10/23/21 07:00 141 10/23/21 06:00 137 31 85/56 94 Room Air 10/23/21 05:46 120 105/76 10/23/21 05:00 125 7 105/76 96 Room Air 10/23/21 04:00 130 6 109/63 97 Room Air 10/23/21 04:00 97 Room Air 10/23/21 04:00 36.2 10/23/21 03:00 128 38 94/61 100 Room Air 10/23/21 03:00 36.2 10/23/21 02:00 122 24 94/58 94 Room Air 10/23/21 02:00 36.2 10/23/21 01:06 125 10/23/21 01:00 36.2 10/23/21 01:00 124 23 105/68 96 Room Air 10/23/21 00:00 120 8 93/68 96 Room Air 10/22/21 23:59 97 Room Air 10/22/21 23:00 36.0 10/22/21 23:00 122 9 104/66 99 Room Air 10/22/21 22:21 36.0 10/22/21 22:00 125 25 91/72 99 Room Air 10/22/21 21:00 117 7 95/56 98 Room Air 10/22/21 20:00 131 37 92/53 96 Room Air 10/22/21 20:00 97 Room Air 10/22/21 19:28 36.5 10/22/21 19:00 120 17 84/53 98 Room Air 10/22/21 19:00 122 10/22/21 18:00 130 26 87/58 98 Room Air 10/22/21 17:00 141 38 102/73 99 Room Air 10/22/21 16:00 97 Room Air 10/22/21 16:00 74 27 96/68 99 Room Air 10/22/21 15:52 120 82/54 10/22/21 15:22 36.8 10/22/21 15:00 129 25 87/61 98 Room Air 10/22/21 14:00 130 14 86/64 100 Room Air I & O 10/23/21 07:00 Intake Total 1271.2 ml Output Total 900 ml Balance 371.2 ml Capillary Refill : Less Than 3 Seconds General Appearance: No Apparent Distress HEENT: PERRL/EOMI Neck: Full Range of Motion Respiratory: Chest Non Tender, Decreased Breath Sounds Cardiovascular: Regular Rate, Rhythm Gastrointestinal: normal bowel sounds, non tender, soft Extremity: Normal Capillary Refill Neurologic/Psychiatric: Alert, Oriented x3 Skin: Normal Color Lymphatic: No Adenopathy Results Lab Laboratory Tests 10/23/21 04:15: White Blood Count 10.3, Red Blood Count 2.92L, Hemoglobin 12.3L, Hematocrit 34L, Mean Corpuscular Volume 118H, Mean Corpuscular Hemoglobin 42H, Mean Corpuscular Hemoglobin Concent 36, Red Cell Distribution Width 13.0, Platelet Count 114L, Mean Platelet Volume 10.9, Immature Granulocyte % (Auto) 1, Neutrophils (%) ( Auto) 71, Lymphocytes (%) (Auto) 12, Monocytes (%) (Auto) 15H, Eosinophils (%) (Auto) 1, Basophils (%) (Auto) 0, Neutrophils # (Auto) 7.4, Lymphocytes # (Auto) 1.2, Monocytes # (Auto) 1.6H, Eosinophils # (Auto) 0.1, Basophils # (Auto) 0.0, Immature Granulocyte # (Auto) 0.1, Percent Immature Platelet Fraction 4.0, Sodium Level 136, Potassium Level 4.6, Chloride Level 110H, Carbon Dioxide Level 15L, Anion Gap 11, Blood Urea Nitrogen 29H, Creatinine 1.27, Estimat Glomerular Filtration Rate 57, BUN/Creatinine Ratio 23, Glucose Level 132H, Calcium Level 8.1L, Corrected Calcium 9.5, Phosphorus Level 2.9, Magnesium Level 1.9, Total Bilirubin 3.6H, Aspartate Amino Transf (AST/SGOT) 135H, Alanine Aminotransferase (ALT/SGPT) 99H, Alkaline Phosphatase 93, Total Protein 5.3L, Albumin 2.3L Microbiology 10/20/21 MRSA Screen - Final, Complete MRSA not isolated 10/20/21 Gram Stain - Final, Complete 10/20/21 Wound Culture - Final, Complete Mixed Bacterial Layla Enterococcus species 10/20/21 Blood Culture - Preliminary, Resulted No growth Assessment/Plan Assessment/Plan Assess & Plan/Chief Complaint liver cirrhosis s/p lap cholecystectomy 10/04/21. likely end stage liver dz. will proceed with placement interrupted figure of 8 sutures across umbilical wound. low protein diet. Na and fluid restriction. cont spironolactone. ok for home when ok with IM. MAMTA ALBERT MD Oct 23, 2021 13:50
--- NOTE | 2021-10-23 15:23 | Progress Note - Hospitalist ---
Subjective HPI/CC On Admission Date Seen by Provider: Oct 23, 2021 Time Seen by Provider: 09:45 Patient is 81-year-old male past medical history of cirrhosis, hypertension, and recent cholecystectomy who presented to the emergency room due to drainage from surgical wounds and low blood pressure. He is a very poor historian but per the ER note he also complained of nausea and decreased appetite. He told me his surgery was 2 years ago though records reveal it was much more recent than that (10/04). He does not complain of any of this to me and states he is feeling very well. When asked why he came to the hospital then if he was feeling well he states because his sister is a nurse. Reviewing records reveals he was seen in the emergency department last week for drainage from surgical incisions and a suture was placed. He saw Dr. ALBERT's nurse practitioner on October 17 for removal. Since then he has continued to have drainage. He also continues to drink 1-2 glasses of wine a day. Subjective/Events-last exam He is alert and oriented. He answers all questions appropriately. He continually states he wants to go home. He denies any pain or other complaints. Focused Exam Lactate Level 10/21/21 10:44: Lactic Acid Level 2.93*H 10/21/21 12:52: Lactic Acid Level 3.22*H 10/21/21 17:08: Lactic Acid Level 2.39*H Objective Exam Vital Signs Vital Signs Date Time Temp Pulse Resp B/P (MAP) Pulse Ox O2 Delivery O2 Flow Rate FiO2 10/24/21 06:00 125 20 107/59 97 Room Air 10/24/21 00:00 37.0 Capillary Refill : Less Than 3 Seconds General Appearance: No Apparent Distress, Chronically ill Respiratory: No Respiratory Distress, Decreased Breath Sounds Cardiovascular: No Murmur, Tachycardia Gastrointestinal: Soft, Abnormal Bowel Sounds (hypoactive), Distended Extremity: Normal Inspection, Pedal Edema Neurologic/Psychiatric: Alert, Oriented x3, No Motor/Sensory Deficits, Normal Mood/Affect Skin: Warm/Dry, Jaundice Results/Procedures Lab Laboratory Tests 10/24/21 03:45 Patient resulted labs reviewed. Imaging: Reviewed Imaging Report Assessment/Plan Assessment and Plan Assess & Plan/Chief Complaint Severe sepsis GONZALES Recent cholecystectomy Possible SBP End stage liver disease Decompensated cirrhosis Hypotension Poor prognosis Cultures with Enterococcus Continue Unasyn Continue fluids Restarted on pressors Surgery following DVT ppx: SCDs Critical Care Critically Ill Patient Diagnosis/Problems Diagnosis/Problems (1) Severe sepsis Status: Acute (2) Abdominal infection Status: Acute (3) S/P cholecystectomy Status: Chronic (4) End-stage liver disease Status: Acute (5) Poor prognosis Status: Acute (6) Hypotension Status: Acute PJ NATARAJAN MD Oct 23, 2021 15:23
[2021-10-23] MEDS ORDERED: D5 1/2 NS 1000 ML IV SOLUTION 1,000 ML IV PRN (17:00)
[2021-10-23] MEDS ORDERED: LORazepam INJ 2 MG/ML (ATIVAN) VIAL IM/IV PRN (17:00)
[2021-10-23] MEDS ORDERED: 1/2 NS IV SOLUTION 1,000 ML IV PRN (17:00)
[2021-10-23] MEDS ORDERED: LORazepam INJ 2 MG/ML (ATIVAN) VIAL IV PRN (17:00)
[2021-10-23] MEDS ORDERED: ANTACID SUSP 30 ML UDC (MYLANTA) PO PRN (17:00)
[2021-10-23] MEDS ORDERED: ONDANSETRON 4 MG/2 ML (SDV) Z0FRAN IV PRN (17:00)
[2021-10-23] MEDS ORDERED: SENNA W/DOCUSATE (SENOKOT S) TABLET PO PRN (17:00)
[2021-10-23] MEDS ORDERED: ONDANSETRON 4 MG (ZOFRAN) ORAL DISSOLVE TAB SL PRN (17:00)
--- NOTE | 2021-10-23 17:38 | Diagnostic Imaging Report ---
INDICATION: PICC line placement. TIME OF EXAM: 05:18 p.m. COMPARISON: Correlation is made to prior chest from 10/20/2021. FINDINGS: Heart size is stable. Lungs are clear. No infiltrates are seen. There is no effusion or pneumothorax. Right upper extremity PICC line has tip in good position overlying the lower SVC. IMPRESSION: Satisfactory PICC line placement. Dictated by: Dictated on workstation # [id number]
[2021-10-24] MEDS: AMPICILLIN/SULBACTAM INJECTION 1.5 GM in NS (IVPB) 100 ML IV SCH ×4 (00:18→17:24)
[2021-10-24] MEDS: LACTATED RINGERS 1,000 ML IV SCH ×4 (00:20→18:54)
[2021-10-24] MEDS: LORazepam 1 MG (ATIVAN) TAB PO PRN ×2 (01:03→04:07)
[2021-10-24 04:00] LABS: BASOPHILS % (AUTO) 0 % (0-10); EOSINOPHILS # (AUTO) 0.1 10^3/uL (0.0-0.3); EOSINOPHILS % (AUTO) 1 % (0-10); HEMATOCRIT 33 % (40-54); HEMOGLOBIN 11.8 g/dL (13.3-17.7); LYMPHOCYTES # (AUTO) 1.1 10^3/uL (1.0-4.0); LYMPHOCYTES % (AUTO) 8 % (12-44); MEAN CORPUSCULAR HEMOGLOBIN 42 pg (25-34); MEAN CORPUSCULAR HGB CONC 36 g/dL (32-36); MEAN CORPUSCULAR VOLUME 118 fL (80-99); MEAN PLATELET VOLUME 10.7 fL (9.0-12.2); MONOCYTES # (AUTO) 1.6 10^3/uL (0.0-1.0); MONOCYTES % (AUTO) 12 % (0-12); NEUTROPHILS # (AUTO) 10.2 10^3/uL (1.8-7.8); NEUTROPHILS % (AUTO) 78 % (42-75); PLATELET COUNT 98 10^3/uL (130-400); WHITE BLOOD COUNT 13.1 10^3/uL (4.3-11.0)
[2021-10-24 04:14] LABS: ALBUMIN 2.3 GM/DL (3.2-4.5); POTASSIUM 4.8 MMOL/L (3.6-5.0)
[2021-10-24 04:15] LABS: CALCIUM 8.1 MG/DL (8.5-10.1)
[2021-10-24 04:16] LABS: TOTAL PROTEIN 5.3 GM/DL (6.4-8.2)
[2021-10-24 04:18] LABS: BILIRUBIN,TOTAL 3.4 MG/DL (0.1-1.0)
[2021-10-24 04:20] LABS: CREATININE SERUM 1.49 MG/DL (0.60-1.30); PHOSPHORUS 2.8 MG/DL (2.3-4.7)
[2021-10-24] MEDS: THIAMINE INJECTION 100 MG in NS (IVPB) 50 ML IV SCH (08:24)
[2021-10-24] MEDS: FOLIC ACID INJECTION 1 MG in NS (IVPB) 50 ML IV SCH (08:26)
[2021-10-24] MEDS: NOREPINEPHRINE 8 MG/250 ML 250 ML IV SCH ×2 (10:30→18:06)
--- NOTE | 2021-10-24 14:02 | Physical Therapy Progress Note ---
Therapy Progress Note Patient laying in bed and HR is 144 bpm at rest. Nurse states he is in a-fib and she was just getting ready to notify the doctor. Patient will be on hold this afternoon. Will check back in the morning. JOHN PAUL PILLAI PT Oct 24, 2021 14:02
--- NOTE | 2021-10-24 18:37 | Progress Note - Hospitalist ---
Subjective HPI/CC On Admission Date Seen by Provider: Oct 24, 2021 Time Seen by Provider: 10:50 Patient is 81-year-old male past medical history of cirrhosis, hypertension, and recent cholecystectomy who presented to the emergency room due to drainage from surgical wounds and low blood pressure. He is a very poor historian but per the ER note he also complained of nausea and decreased appetite. He told me his surgery was 2 years ago though records reveal it was much more recent than that (10/04). He does not complain of any of this to me and states he is feeling very well. When asked why he came to the hospital then if he was feeling well he states because his sister is a nurse. Reviewing records reveals he was seen in the emergency department last week for drainage from surgical incisions and a suture was placed. He saw Dr. ALBERT's nurse practitioner on October 17 for removal. Since then he has continued to have drainage. He also continues to drink 1-2 glasses of wine a day. Subjective/Events-last exam He has no complaints or concerns. He wants to go home. Objective Exam Vital Signs Vital Signs Date Time Temp Pulse Resp B/P (MAP) Pulse Ox O2 Delivery O2 Flow Rate FiO2 10/24/21 18:06 151 72/52 10/24/21 18:00 13 98 Room Air 10/24/21 15:36 36.2 Capillary Refill : Less Than 3 Seconds General Appearance: No Apparent Distress, Chronically ill Respiratory: Lungs Clear, No Respiratory Distress Cardiovascular: No Murmur, Tachycardia Gastrointestinal: Normal Bowel Sounds, Soft, Distended Extremity: Normal Inspection, Pedal Edema Neurologic/Psychiatric: Alert, Oriented x3, Normal Mood/Affect Skin: Warm/Dry, Jaundice Results/Procedures Lab Laboratory Tests 10/24/21 03:45 Patient resulted labs reviewed. Imaging: Reviewed Imaging Report Assessment/Plan Assessment and Plan Assess & Plan/Chief Complaint Severe sepsis GONZALES Recent cholecystectomy Possible SBP End stage liver disease Decompensated cirrhosis Hypotension Poor prognosis Cultures with Enterococcus Continue Unasyn Continue fluids Continue pressors Add midodrine Surgery following DVT ppx: SCDs Critical Care Critically Ill Patient Diagnosis/Problems Diagnosis/Problems (1) Severe sepsis Status: Acute (2) Abdominal infection Status: Acute (3) S/P cholecystectomy Status: Chronic (4) End-stage liver disease Status: Acute (5) Poor prognosis Status: Acute (6) Hypotension Status: Acute PJ NATARAJAN MD Oct 24, 2021 18:37
[2021-10-24] MEDS ORDERED: MIDODRINE 10 MG (PROAMATINE) TAB PO NR (18:45)
[2021-10-24] MEDS: MIDODRINE 10 MG (PROAMATINE) TAB PO SCH (20:24)
[2021-10-25] MEDS: AMPICILLIN/SULBACTAM INJECTION 1.5 GM in NS (IVPB) 100 ML IV SCH ×4 (01:22→18:26)
[2021-10-25] MEDS: NOREPINEPHRINE 8 MG/250 ML 250 ML IV SCH ×5 (01:23→22:13)
[2021-10-25] MEDS: LACTATED RINGERS 1,000 ML IV SCH ×3 (01:24→19:34)
[2021-10-25 05:32] LABS: LYMPHOCYTES % (AUTO) 8 % (12-44); MEAN CORPUSCULAR VOLUME 117 fL (80-99)
[2021-10-25 05:33] LABS: BASOPHILS # (AUTO) 0.1 10^3/uL (0.0-0.1); BASOPHILS % (AUTO) 0 % (0-10); EOSINOPHILS # (AUTO) 0.1 10^3/uL (0.0-0.3); EOSINOPHILS % (AUTO) 1 % (0-10); HEMATOCRIT 34 % (40-54); LYMPHOCYTES # (AUTO) 1.2 10^3/uL (1.0-4.0); MEAN CORPUSCULAR HEMOGLOBIN 42 pg (25-34); MEAN CORPUSCULAR HGB CONC 36 g/dL (32-36); MEAN PLATELET VOLUME 10.6 fL (9.0-12.2); MONOCYTES # (AUTO) 2.1 10^3/uL (0.0-1.0); MONOCYTES % (AUTO) 13 % (0-12); NEUTROPHILS # (AUTO) 12.2 10^3/uL (1.8-7.8); NEUTROPHILS % (AUTO) 78 % (42-75); PLATELET COUNT 59 10^3/uL (130-400); WHITE BLOOD COUNT 15.7 10^3/uL (4.3-11.0)
[2021-10-25 05:52] LABS: ALBUMIN 2.3 GM/DL (3.2-4.5); BILIRUBIN,TOTAL 2.9 MG/DL (0.1-1.0); CALCIUM 7.9 MG/DL (8.5-10.1); CREATININE SERUM 1.68 MG/DL (0.60-1.30); MAGNESIUM 1.9 MG/DL (1.6-2.4); PHOSPHORUS 3.1 MG/DL (2.3-4.7); POTASSIUM 4.5 MMOL/L (3.6-5.0); TOTAL PROTEIN 5.4 GM/DL (6.4-8.2)
[2021-10-25] MEDS: MIDODRINE 10 MG (PROAMATINE) TAB PO SCH ×3 (07:48→18:26)
[2021-10-25] MEDS: FOLIC ACID INJECTION 1 MG in NS (IVPB) 50 ML IV SCH (08:26)
[2021-10-25] MEDS: THIAMINE INJECTION 100 MG in NS (IVPB) 50 ML IV SCH (08:26)
--- NOTE | 2021-10-25 09:27 | Tele-ICU Progress Note ---
Subjective Date Seen by a Provider: Oct 25, 2021 Time Seen by a Provider: 08:05 Subjective/Events-last exam This virtual visit was conducted using real time audio/video. Thank you for asking us to see this patient for sepsis PE: VSS. O2 sat 98% on RA HEENT: No obvious masses, adenopathy or JVD. Chest: clear to auscultation. CV: RRR S1 S2 No murmur or added sounds. Abd: Non-tender. Bowel sounds Y. : Unremarkable. Lara N. [employer] HELPER/psychiatric: Grossly intact. No obvious focal findings. Extremities: Trace edema. Capillary refill < 3 seconds. Skin: unremarkable. Results: Elevated WCC 15.7, BUN 36, Creat 1.68. Decreased Hb 12, plts 59K., Alb 2.3.. CXR: clear. Available chart/ vitals / labs / images reviewed. Video assessment done using teleICU camera, rest of exam as per RN. A/P: Critical Care: critically ill patient. Cont.Levo., SCDs, thiamine, folate,midodrine. Wean Levo as norm. Hem consult w low plts. Discussed with RN Gertrude. Asked RN to reach out to eICU if any questions or concerns later. Time spent with patient/coordination of care with other health professionals (mins): 20 Sepsis Event Evaluation Height, Weight, BMI Height: 5'9.00" Weight: 179lbs. 0.0oz. 81.425639bd; 32.72 BMI Method: Exam Exam Patient acknowledged, consented, and participated in this virtual visit which was conducted using real time audio/video Vital Signs Date Time Temp Pulse Resp B/P (MAP) Pulse Ox O2 Delivery O2 Flow Rate FiO2 10/25/21 07:46 137 87/56 10/25/21 07:33 36.0 10/25/21 07:00 136 10/25/21 06:00 138 24 115/70 90 Room Air 10/25/21 05:00 137 23 100/62 96 Room Air 10/25/21 04:00 138 22 114/71 100 Room Air 10/25/21 04:00 36.6 10/25/21 04:00 96 Room Air 10/25/21 03:00 141 22 105/86 96 Room Air 10/25/21 02:00 113 17 85/75 91 Room Air 10/25/21 01:23 138 118/71 10/25/21 01:00 133 19 118/71 98 Room Air 10/25/21 01:00 133 10/25/21 00:00 96 Room Air 10/25/21 00:00 36.4 142 19 65/41 97 Room Air 10/24/21 23:00 131 25 111/75 97 Room Air 10/24/21 22:00 133 19 104/75 97 Room Air 10/24/21 21:00 141 15 100/53 98 Room Air 10/24/21 20:00 149 21 106/59 96 Room Air 10/24/21 20:00 96 Room Air 10/24/21 19:29 36.3 10/24/21 19:00 151 21 119/77 98 Room Air 10/24/21 19:00 151 10/24/21 18:06 151 72/52 10/24/21 18:00 99 13 69/56 98 Room Air 10/24/21 17:00 151 22 72/52 96 Room Air 10/24/21 16:00 140 18 93/58 98 Room Air 10/24/21 16:00 96 Room Air 10/24/21 15:36 36.2 10/24/21 15:00 134 103/75 96 Room Air 10/24/21 14:00 137 24 90/63 97 Room Air 10/24/21 13:00 141 23 94/70 100 Room Air 10/24/21 13:00 140 10/24/21 12:00 94 Room Air 10/24/21 12:00 134 20 95/72 98 Room Air 10/24/21 12:00 36.0 10/24/21 11:00 140 18 112/96 97 Room Air 10/24/21 10:30 134 107/74 10/24/21 10:00 134 7 107/74 99 Room Air I & O 10/25/21 07:00 Intake Total 2535 ml Output Total 575 ml Balance 1960 ml Height & Weight Height: 5'9.00" Weight: 179lbs. 0.0oz. 81.163293tm; 32.72 BMI Method: General Appearance: No Apparent Distress, Chronically ill HEENT: PERRL/EOMI Neck: Full Range of Motion Respiratory: Lungs Clear, No Respiratory Distress Cardiovascular: No Murmur, Tachycardia Capillary Refill: Less Than 3 Seconds Peripheral Pulses: 2+ Radial Pulses (R), 2+ Radial Pulses (L) Gastrointestinal: normal bowel sounds, non tender, soft Extremity: Normal Inspection, Pedal Edema Neurologic/Psychiatric: Alert, Oriented x3, Normal Mood/Affect Skin: Warm/Dry, Jaundice Lymphatic: No Adenopathy Results Lab Laboratory Tests 10/24/21 03:45 10/25/21 05:20 Assessment/Plan Assessment/Plan See free text. Critical Care: Critically Ill Patient JOHN BRISENO MD Oct 25, 2021 09:27
--- NOTE | 2021-10-25 13:39 | Physical Therapy Progress Note ---
Therapy Progress Note Patient refuses physical therapy twice today. The benefits of therapy are explained to patient but he continues to refuse. He states "I just don't want to, I want to stay in bed". Will check back tomorrow. Also, patient's resting HR is still running anywhere from 130 bpm to 140 bpm. JOHN PAUL PILLAI PT Oct 25, 2021 13:39
--- NOTE | 2021-10-25 18:52 | Progress Note - Hospitalist ---
Subjective HPI/CC On Admission Date Seen by Provider: Oct 25, 2021 Time Seen by Provider: 09:25 Patient is 81-year-old male past medical history of cirrhosis, hypertension, and recent cholecystectomy who presented to the emergency room due to drainage from surgical wounds and low blood pressure. He is a very poor historian but per the ER note he also complained of nausea and decreased appetite. He told me his surgery was 2 years ago though records reveal it was much more recent than that (10/04). He does not complain of any of this to me and states he is feeling very well. When asked why he came to the hospital then if he was feeling well he states because his sister is a nurse. Reviewing records reveals he was seen in the emergency department last week for drainage from surgical incisions and a suture was placed. He saw Dr. ALBERT's nurse practitioner on October 17 for removal. Since then he has continued to have drainage. He also continues to drink 1-2 glasses of wine a day. Subjective/Events-last exam He is feeling well. He wants to go home. He wants to sit in his recliner. He den ies pain. He denies shortness of breath. His is at the bedside. We discussed his prognosis and options. We also discussed code status. Objective Exam Vital Signs Vital Signs Date Time Temp Pulse Resp B/P (MAP) Pulse Ox O2 Delivery O2 Flow Rate FiO2 10/25/21 18:00 137 33 81/52 Room Air 10/25/21 16:00 36.2 10/25/21 16:00 98 Capillary Refill : Less Than 3 Seconds General Appearance: No Apparent Distress, Chronically ill, Obese Respiratory: Lungs Clear, No Respiratory Distress Cardiovascular: No Murmur, Tachycardia Gastrointestinal: Normal Bowel Sounds, Non Tender, Distended; No Guarding Extremity: Normal Inspection, Pedal Edema Neurologic/Psychiatric: Alert, Oriented x3, Normal Mood/Affect Skin: Warm/Dry, Jaundice Results/Procedures Lab Laboratory Tests 10/25/21 05:20 Patient resulted labs reviewed. Imaging: Reviewed Imaging Report Assessment/Plan Assessment and Plan Assess & Plan/Chief Complaint Severe sepsis GONZALES Recent cholecystectomy Possible SBP End stage liver disease Decompensated cirrhosis Hypotension Poor prognosis Goals of care discussion Cultures with Enterococcus Continue Unasyn Continue fluids Continue pressors Continue midodrine Surgery following Discussed code status, patient and agree to DNR Palliative care consulted DVT ppx: SCDs Critical Care Critically Ill Patient Diagnosis/Problems Diagnosis/Problems (1) Severe sepsis Status: Acute (2) Abdominal infection Status: Acute (3) S/P cholecystectomy Status: Chronic (4) End-stage liver disease Status: Acute (5) Poor prognosis Status: Acute (6) Hypotension Status: Acute PJ NATARAJAN MD Oct 25, 2021 18:52
[2021-10-25] MEDS: LORazepam INJ 2 MG/ML (ATIVAN) VIAL IV PRN (20:48)
[2021-10-26] MEDS: NOREPINEPHRINE 8 MG/250 ML 250 ML IV SCH ×4 (02:31→12:43)
[2021-10-26] MEDS ORDERED: NS IV 1000 ML 500 ML IV SCH (04:30)
[2021-10-26] MEDS ORDERED: DIGOXIN 0.25 MG/ML (LANOXIN) 2 ML AMP IV ONE (05:15)
[2021-10-26] MEDS: AMPICILLIN/SULBACTAM INJECTION 1.5 GM in NS (IVPB) 100 ML IV SCH ×6 (05:19→23:56)
--- NOTE | 2021-10-26 05:19 | Tele-ICU Progress Note ---
Progress Note HAs developed sinus tach rate 140s BP labile with systolic 70-100 on low dose levophed Have asked RN to increase levophed to support BP Will check troponins and give fluid bolus and diigitalize Focused Exam Height, Weight, BMI Height: 5'9.00" Weight: 179lbs. 0.0oz. 81.309638ky; 32.72 BMI Method: Laboratory Tests 10/25/21 05:20 Labs Labs Laboratory Tests 10/25/21 05:20: White Blood Count 15.7H, Red Blood Count 2.89L, Hemoglobin 12.0L, Hematocrit 34L , Mean Corpuscular Volume 117H, Mean Corpuscular Hemoglobin 42H, Mean Corpuscular Hemoglobin Concent 36, Red Cell Distribution Width 13.3, Platelet Count 59L, Mean Platelet Volume 10.6, Immature Granulocyte % (Auto) 1, Neutrophils (%) (Auto) 78H, Lymphocytes (%) (Auto) 8L, Monocytes (%) (Auto) 13H, Eosinophils (%) (Auto) 1, Basophils (%) (Auto) 0, Neutrophils # (Auto) 12.2H, Lymphocytes # (Auto) 1.2, Monocytes # (Auto) 2.1H, Eosinophils # (Auto) 0.1, Basophils # (Auto) 0.1, Immature Granulocyte # (Auto) 0.1, Percent Immature Platelet Fraction 4.4, Sodium Level 137, Potassium Level 4.5, Chloride Level 110H, Carbon Dioxide Level 14L, Anion Gap 13, Blood Urea Nitrogen 36H, Creatinine 1.68H, Estimat Glomerular Filtration Rate 41, BUN/Creatinine Ratio 21, Glucose Level 157H, Calcium Level 7.9L, Corrected Calcium 9.3, Phosphorus Level 3.1, Magnesium Level 1.9, Total Bilirubin 2.9H, Aspartate Amino Transf (AST/SGOT) 99H, Alanine Aminotransferase (ALT/SGPT) 83H, Alkaline Phosphatase 107, Total Protein 5.4L, Albumin 2.3L 10/25/21 11:31: Glucometer 172H 10/25/21 17:40: Glucometer 155H 10/25/21 23:03: Glucometer 150H Microbiology 10/20/21 MRSA Screen - Final, Complete MRSA not isolated 10/20/21 Gram Stain - Final, Complete 10/20/21 Wound Culture - Final, Complete Mixed Bacterial Layla Enterococcus species 10/20/21 Blood Culture - Final, Complete No growth HAI LYNN MD Oct 26, 2021 05:19
[2021-10-26 05:32] LABS: BASOPHILS # (AUTO) 0.1 10^3/uL (0.0-0.1); BASOPHILS % (AUTO) 0 % (0-10); HEMATOCRIT 32 % (40-54); HEMOGLOBIN 11.3 g/dL (13.3-17.7); MEAN CORPUSCULAR HEMOGLOBIN 42 pg (25-34); MEAN CORPUSCULAR HGB CONC 36 g/dL (32-36); MEAN CORPUSCULAR VOLUME 117 fL (80-99)
[2021-10-26 05:33] LABS: EOSINOPHILS # (AUTO) 0.1 10^3/uL (0.0-0.3); EOSINOPHILS % (AUTO) 1 % (0-10); LYMPHOCYTES # (AUTO) 1.3 10^3/uL (1.0-4.0); LYMPHOCYTES % (AUTO) 9 % (12-44); MEAN PLATELET VOLUME 11.1 fL (9.0-12.2); MONOCYTES % (AUTO) 13 % (0-12); NEUTROPHILS # (AUTO) 11.6 10^3/uL (1.8-7.8); NEUTROPHILS % (AUTO) 76 % (42-75); WHITE BLOOD COUNT 15.2 10^3/uL (4.3-11.0)
[2021-10-26 05:35] LABS: PLATELET COUNT 35 10^3/uL (130-400)
[2021-10-26] MEDS: LACTATED RINGERS 1,000 ML IV SCH (05:36)
[2021-10-26 05:41] LABS: ALBUMIN 2.2 GM/DL (3.2-4.5); POTASSIUM 4.2 MMOL/L (3.6-5.0)
[2021-10-26 05:43] LABS: CALCIUM 7.5 MG/DL (8.5-10.1)
[2021-10-26 05:46] LABS: BILIRUBIN,TOTAL 2.9 MG/DL (0.1-1.0)
[2021-10-26 05:47] LABS: PHOSPHORUS 3.1 MG/DL (2.3-4.7)
[2021-10-26 05:48] LABS: CREATININE SERUM 1.8 MG/DL (0.60-1.30)
[2021-10-26 05:50] LABS: MAGNESIUM 1.7 MG/DL (1.6-2.4)
--- NOTE | 2021-10-26 08:59 | Consultation-Cardiology ---
HPI-Cardiology Cardiology Consultation: Date of Consultation 10/26/21 Date of Admission 10-20-21 Attending Physician Pj Natarajan MD Admitting Physician No,Local Physician Consulting Physician BUD OSMAN Review of Systems-Cardiology All Other Systems Reviewed Negative Unless Noted: Yes (Negative excepted noted.) [id number] Hx Patient Social History Marrital Status: Smoking Status: Former Smoker (Smoked 0.75 PPD for 18 years) Former smoker/When Quit: Aug 28, 1989 2nd Hand Smoke Exposure: No Have you traveled recently?: No Alcohol Use?: Yes Pt feels they are or have been: No Immunizations Up To Date Date of Influenza Vaccine: Apr 11, 2021 Past Medical History PMH As described under Assessment. Allergies and Home Medications Allergies Coded Allergies: No Known Drug Allergies (Unverified , 10/04/21) Patient Home Medication List Glutamine (l-Glutamine) 500 Mg Capsule, 500 MG PO DAILY, (Reported) Entered as Reported by: STEPHANY BACH on 10/22/21 113 Last Action: Reviewed Metoprolol Succinate (Metoprolol Succinate) 25 Mg Tab.er.24h, 25 MG PO DAILY, (Reported) Entered as Reported by: BUCK JORGE on 03/31/18 1416 Last Action: Reviewed Milk Thistle (Milk Thistle) 175 Mg Tablet, 375 MG PO DAILY, (Reported) Entered as Reported by: DEVON WILLIAM on 02/11/20 1347 Last Action: Reviewed Spironolactone (Spironolactone) 50 Mg Tablet, 50 MG PO DAILY, (Reported) Entered as Reported by: STEPHANY BACH on 10/22/21 113 Last Action: Reviewed Sulfamethoxazole/Trimethoprim (Bactrim Ds Tablet) 1 Each Tablet, 1 EA PO BID, (Reported) Entered as Reported by: STEPHANY BACH on 10/22/21 113 Last Action: Reviewed Vitamin B Complex (Vitamin B Complex) 1 Each Capsule, 1 EACH PO DAILY, (Reported) Entered as Reported by: DEVON WILLIAM on 02/11/20 1347 Last Action: Reviewed Physical Exam-Cardiology Physical Exam Vital Signs/I&O 10/29/21 10/29/21 10/29/21 10/29/21 21:00 22:00 22:39 22:44 Temp 36.5 Pulse 116 112 Resp 19 18 B/P (MAP) 99/64 97/60 103/62 Pulse Ox 100 100 O2 Delivery Room Air Room Air 10/29/21 10/30/21 10/30/21 10/30/21 23:00 00:00 00:00 01:00 Pulse 105 101 107 Resp 19 19 B/P (MAP) 94/62 92/61 Pulse Ox 91 100 98 O2 Delivery Room Air Room Air Room Air 10/30/21 10/30/21 10/30/21 10/30/21 01:00 02:00 03:00 04:00 Pulse 107 99 100 Resp 17 17 17 B/P (MAP) 95/56 88/52 98/55 Pulse Ox 99 100 96 98 O2 Delivery Room Air Room Air Room Air Room Air 10/30/21 10/30/21 10/30/21 10/30/21 04:00 05:00 06:00 07:00 Pulse 112 98 98 102 Resp 12 15 15 B/P (MAP) 93/58 92/55 85/54 Pulse Ox 100 96 94 O2 Delivery Room Air Room Air Room Air 10/30/21 10/30/21 07:27 08:00 Temp 36.2 Pulse Ox 97 O2 Delivery Room Air 10/30/21 00:00 Intake Total 330 ml Output Total 2175 ml Balance -1845 ml Capillary Refill : Less Than 3 Seconds Rectal: deferred Lymphatic: no adenopathy (Head and neck) Data Review Labs Laboratory Tests 10/29/21 12:22: Glucometer 178H 10/29/21 17:49: Glucometer 147H 10/30/21 00:22: Glucometer 131H 10/30/21 04:05: White Blood Count 8.2, Red Blood Count 2.13L, Hemoglobin 8.9L, Hematocrit 25L, Mean Corpuscular Volume 117H, Mean Corpuscular Hemoglobin 42H, Mean Corpuscular Hemoglobin Concent 36, Red Cell Distribution Width 14.6H, Platelet Count 28*L, Mean Platelet Volume 12.6H, Immature Granulocyte % (Auto) 1, Neutrophils (%) (Auto) 65, Lymphocytes (%) (Auto) 20, Monocytes (%) (Auto) 14H, Eosinophils (%) (Auto) 1, Basophils (%) (Auto) 0, Neutrophils # (Auto) 5.3, Lymphocytes # (Auto) 1.6, Monocytes # (Auto) 1.2H, Eosinophils # (Auto) 0.1, Basophils # (Auto) 0.0, Immature Granulocyte # (Auto) 0.0, Sodium Level 140, Potassium Level 3.4L, Chloride Level 103, Carbon Dioxide Level 25, Anion Gap 12, Blood Urea Nitrogen 70H, Creatinine 2.28H, Estimat Glomerular Filtration Rate 28, BUN/Creatinine Ratio 31, Glucose Level 127H, Calcium Level 7.0L, Corrected Calcium 8.7, Phosphorus Level 4.1, Magnesium Level 2.0, Total Bilirubin 2.2H, Aspartate Amino Transf (AST/SGOT) 76H, Alanine Aminotransferase (ALT/SGPT) 49, Alkaline Phosphatase 98, Total Protein 4.4L, Albumin 1.9L Microbiology 10/20/21 MRSA Screen - Final, Complete MRSA not isolated 10/20/21 Gram Stain - Final, Complete 10/20/21 Wound Culture - Final, Complete Mixed Bacterial Layla Enterococcus species 10/20/21 Blood Culture - Final, Complete No growth Radiology NAME: NICKIE RM [facility] REC#: [id number] PT STATUS: ADM IN : 1940 PHYSICIAN: PJ NATARAJAN MD ADMIT DATE: 10/20/21/ICU Signed Date of Exam:10/23/21 CHEST 1 VIEW, AP/PA ONLY INDICATION: PICC line placement. TIME OF EXAM: 05:18 p.m. COMPARISON: Correlation is made to prior chest from 10/20/2021. FINDINGS: Heart size is stable. Lungs are clear. No infiltrates are seen. There is no effusion or pneumothorax. Right upper extremity PICC line has tip in good position overlying the lower SVC. IMPRESSION: Satisfactory PICC line placement. Dictated by: Dictated on workstation # [id number] Dict: 10/23/21 1734 Trans: 10/23/21 1837 [id number] Interpreted by: DEBBIE LIGHT MD Electronically signed by: DEBBIE LIGHT MD 10/23/21 2747 A/P-Cardiology Assessment/Admission Diagnosis CAD - Cardiac cath of 08-29-15 (following a 3-beat run of WCT on 08/18/15) showed angio graphically mild CAD. Normal global LV systolic function with an LVEF of approx 60%. Normal LVEDP. No significant MR. 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 Labile hypertension - relative hypotension on office visith of 09/19/21 Carotid dz - Carotid u/s on 12-01-20: minimal plaque Elevated liver enzymes and elevated bilirubin - likely related to chronic heavy alcohol use, followed by his PCP - Liver and gallbladder u/s of 08/25/15 showed gall bladder sludge and hepatic steatosis Macrocytic indices - etiology undetermined, followed by PCP Hyperlipidemia - Not suitable for statin therapy due to chronic liver enz elev Fam h/o early CAD Mild to mod, bilateral leg edema, likely due to venous insuff BUD MUNGUIA [facility] Oct 26, 2021 08:59
[2021-10-26] MEDS: MIDODRINE 10 MG (PROAMATINE) TAB PO SCH ×3 (09:14→17:52)
[2021-10-26] MEDS: THIAMINE INJECTION 100 MG in NS (IVPB) 50 ML IV SCH (09:14)
[2021-10-26] MEDS: FOLIC ACID INJECTION 1 MG in NS (IVPB) 50 ML IV SCH (09:15)
[2021-10-26] MEDS ORDERED: SODIUM BICARB 8.4% 50 MEQ/50 ML (ABBOTT) SYR ONE (09:18)
[2021-10-26] MEDS: SODIUM BICARBONATE 8.4% VIAL 100 MEQ in 1/2 NS IV SOLUTION 1,000 ML IV SCH ×2 (09:23→20:26)
--- NOTE | 2021-10-26 09:28 | Physical Therapy Progress Note ---
Therapy Progress Note Patient on hold for today. His resting HR is running between 170 and 190 bpm currently. Will check back tomorrow. JOHN PAUL PILLAI PT Oct 26, 2021 09:28
--- NOTE | 2021-10-26 09:44 | Consultation-Cardiology ---
HPI-Cardiology Cardiology Consultation: Date of Consultation 10/26/21 Time Seen by a Provider: 09:10 Date of Admission 10/20/21 Attending Physician Rosalva Murguia MD Admitting Physician No,Local Physician Consulting Physician DILSHAD MÁRQUEZ MD,MA, FACP, FACC, [facility] [place] CCDS Physician requesting Card consult: Dr Murguia HPI: Chief Complaint: Reason for Card consultation: Sinus tach 81 year old male with a h/o liver cirrhosis who had a lap giovanny by Dr Zamora on 10/04/21. Readmitted on 10/20/21 with continuing abdominal discomfort and with leakage from the incision. Notes gen malaise and weakness. Does not report cp or palp or syncope. Feels short of breath. Dr Murguia has asked us to see him today for persistent sinus tach Review of Systems-Cardiology Review of Systems Constitutional: malaise Eyes: No vision change Ears/Nose/Throat: No recent hearing loss Respiratory: As described under HPI Cardiovascular: As described under HPI Gastrointestinal: As described under HPI Genitourinary: No dysuria, No hematuria Musculoskeletal: No joint pain Skin: No rash, No ulcerations Psychiatric/Neurological: No seizure, No focal weakness, No syncope Hematologic: No bleeding abnormalities All Other Systems Reviewed Negative Unless Noted: Yes (Negative excepted noted.) BLX-Gzlrxk-Lyywlh Hx Patient Social History Marrital Status: Smoking Status: Former Smoker (Smoked 0.75 PPD for 18 years) Former smoker/When Quit: Aug 28, 1989 2nd Hand Smoke Exposure: No Have you traveled recently?: No Alcohol Use?: Yes Pt feels they are or have been: No Immunizations Up To Date Date of Influenza Vaccine: Apr 11, 2021 Past Medical History PMH As described under Assessment. Family Medical History Family Medical History: Fam h/o early CAD Allergies and Home Medications Allergies Coded Allergies: No Known Drug Allergies (Unverified , 10/04/21) Patient Home Medication List Home Medication List Reviewed: Yes Glutamine (l-Glutamine) 500 Mg Capsule, 500 MG PO DAILY, (Reported) Entered as Reported by: STEPHANY BACH on 10/22/21 1131 Last Action: Reviewed Metoprolol Succinate (Metoprolol Succinate) 25 Mg Tab.er.24h, 25 MG PO DAILY, (Reported) Entered as Reported by: BUCK JORGE on 03/31/18 1416 Last Action: Reviewed Milk Thistle (Milk Thistle) 175 Mg Tablet, 375 MG PO DAILY, (Reported) Entered as Reported by: DEVON WILLIAM on 02/11/20 134 Last Action: Reviewed Spironolactone (Spironolactone) 50 Mg Tablet, 50 MG PO DAILY, (Reported) Entered as Reported by: STEPHANY BACH on 10/22/21 113 Last Action: Reviewed Sulfamethoxazole/Trimethoprim (Bactrim Ds Tablet) 1 Each Tablet, 1 EA PO BID, (Reported) Entered as Reported by: STEPHANY BACH on 10/22/21 113 Last Action: Reviewed Vitamin B Complex (Vitamin B Complex) 1 Each Capsule, 1 EACH PO DAILY, (Reported) Entered as Reported by: DEOVN WILLIAM on 02/11/201346 Last Action: Reviewed Discontinued Medications Glutathione (Glutathione-l) 5 Gm Powder, 5 GM MC DAILY, (Reported) Discontinued Reason: Prescription changed Entered as Reported by: DEVON WILLIAM on 02/11/201346 Hydrocodone/Acetaminophen (Hydrocodone-Acetamin 7.5-325) 1 Each Tablet, 1 EACH PO Q4H PRN for PAIN-BREAKTHROUGH Discontinued Reason: No Longer Taking Prescribed by: JUANITA GARCIA on 10/04/21 0950 Last Action: Discontinued Spironolactone (Aldactone) 50 Mg Tablet, 50 MG PO DAILY Discontinued Reason: No Longer Taking Prescribed by: TYESHA GUTIERREZ on 04/01/18 1153 Last Action: Discontinued Physical Exam-Cardiology Physical Exam Vital Signs/I&O 10/25/21 10/25/21 10/25/21 10/26/21 22:00 22:13 23:00 00:00 Pulse 141 146 142 Resp 33 33 33 B/P (MAP) 76/52 123/66 88/65 115/77 O2 Delivery Room Air Room Air Room Air 10/26/21 10/26/21 10/26/21 10/26/21 00:00 00:00 01:00 01:00 Temp 36.1 Pulse 144 144 Resp 24 B/P (MAP) 114/76 Pulse Ox 95 99 O2 Delivery Room Air Room Air 10/26/21 10/26/21 10/26/21 10/26/21 02:00 02:31 03:00 04:00 Pulse 149 144 146 Resp 24 21 26 B/P (MAP) 96/57 89/62 85/51 96/63 Pulse Ox 92 99 94 O2 Delivery Room Air Room Air Room Air 10/26/21 10/26/21 10/26/21 10/26/21 04:00 04:00 05:00 06:00 Temp 35.9 Pulse 146 163 Resp 24 24 B/P (MAP) 85/54 113/70 Pulse Ox 95 92 91 O2 Delivery Room Air Room Air Room Air 10/26/21 10/26/21 10/26/21 10/26/21 06:10 06:32 07:00 07:00 Pulse 149 154 157 Resp 20 B/P (MAP) 91/69 106/76 Pulse Ox 87 96 O2 Delivery Nasal Cannula Nasal Cannula O2 Flow Rate 2.00 2.00 10/26/21 10/26/21 10/26/21 10/26/21 08:00 08:00 08:00 08:00 Temp 36.3 Pulse 154 B/P (MAP) 100/67 Pulse Ox 95 98 O2 Delivery Nasal Cannula Nasal Cannula Nasal Cannula O2 Flow Rate 3.00 3.00 2.00 10/26/21 10/26/21 10/26/21 08:33 09:00 09:00 Pulse 158 Resp 27 B/P (MAP) 92/66 Pulse Ox 94 O2 Delivery Nasal Cannula Nasal Cannula Nasal Cannula O2 Flow Rate 2.00 3.00 2.00 10/26/21 00:00 Intake Total 1880 ml Output Total 250 ml Balance 1630 ml Capillary Refill : Less Than 3 Seconds Constitutional: AAO x 3, well-developed, well-nourished HEENT: PERRL, EOMI; No xanthelasmas are seen Neck: carotid pulses are 2 + bilaterally Respiratory: other (diminished air entry especially at the bases) Cardiovascular: regular rate-rhythm, S1 and S2, systolic murmur (soft ABENA at card base) Gastrointestinal: distended, other (serous drainage from subumbilical incision) Extremities: swelling (mod edema of all extremities) Neurologic/Psychiatric: oriented x 3, other (moves all limbs) Skin: No rash on exposed areas, No ulcerations on exposed areas Data Review Labs Laboratory Tests 10/25/21 11:31: Glucometer 172H 10/25/21 17:40: Glucometer 155H 10/25/21 23:03: Glucometer 150H 10/26/21 05:20: White Blood Count 15.2H, Red Blood Count 2.70L, Hemoglobin 11.3L, Hematocrit 32L , Mean Corpuscular Volume 117H, Mean Corpuscular Hemoglobin 42H, Mean Corpuscular Hemoglobin Concent 36, Red Cell Distribution Width 13.7, Platelet Count 35*L, Mean Platelet Volume 11.1, Immature Granulocyte % (Auto) 1, Neutrophils (%) (Auto) 76H, Lymphocytes (%) (Auto) 9L, Monocytes (%) (Auto) 13H, Eosinophils (%) (Auto) 1, Basophils (%) (Auto) 0, Neutrophils # (Auto) 11.6H, Lymphocytes # (Auto) 1.3, Monocytes # (Auto) 2.0H, Eosinophils # (Auto) 0.1, Basophils # (Auto) 0.1, Immature Granulocyte # (Auto) 0.1, Percent Immature Platelet Fraction 6.1, Sodium Level 137, Potassium Level 4.2, Chloride Level 111H, Carbon Dioxide Level 13L, Anion Gap 13, Blood Urea Nitrogen 36H, Creatinine 1.80H, Estimat Glomerular Filtration Rate 38, BUN/Creatinine Ratio 20, Glucose Level 140H, Calcium Level 7.5L, Corrected Calcium 8.9, Phosphorus Level 3.1, Magnesium Level 1.7, Total Bilirubin 2.9H, Aspartate Amino Transf (AST/SGOT) 92H, Alanine Aminotransferase (ALT/SGPT) 76H, Alkaline Phosphatase 114, Total Protein 5.0L, Albumin 2.2L Microbiology 10/20/21 MRSA Screen - Final, Complete MRSA not isolated 10/20/21 Gram Stain - Final, Complete 10/20/21 Wound Culture - Final, Complete Mixed Bacterial Layla Enterococcus species 10/20/21 Blood Culture - Final, Complete No growth Laboratory Tests 10/25/21 05:20 10/26/21 05:20 A/P-Cardiology Assessment/Admission Diagnosis Acute on chronic hepatic failure, complicated by the following: * Sepsis and septic shock * Probable peritonitis following recent cholecystectomy * Generalized anasarca likely due to hypoproteinemia * Probable hepatorenal syndrome and acute kidney injury * Probable DIC * Severe metabolic acidosis CAD - Cardiac cath of 08-29-15 (following a 3-beat run of WCT on 08/18/15) showed angiographically mild CAD. Normal global LV systolic function with an LVEF of approx 60%. Normal LVEDP. No significant MR. 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 Treat acidosis in the hope of being able to reduce pressors and that such reduction in pressors will lower heart rate * Consider switching pressors to Neosynephrine. Theoretically, it may lower heart rate DILSHAD MÁRQUEZ MD FACP [facility] Oct 26, 2021 09:44
[2021-10-26] MEDS: THIAMINE 100 MG (VITAMIN B-1) TAB PO SCH (09:49)
--- NOTE | 2021-10-26 11:28 | Progress Note ---
Subjective Date Seen by a Provider: Oct 26, 2021 Time Seen by a Provider: 11:00 Subjective/Events-last exam patient confused. likely secondary to hyperammonemia. wound still draining however much less. abd distention likely consistent with recurrent ascites. Objective Exam Vital Signs Date Time Temp Pulse Resp B/P (MAP) Pulse Ox O2 Delivery O2 Flow Rate FiO2 10/26/21 11:00 154 29 84/68 95 Nasal Cannula 3.00 10/26/21 10:00 163 29 91/79 96 Nasal Cannula 3.00 10/26/21 09:51 92/72 10/26/21 09:00 158 27 92/66 94 Nasal Cannula 2.00 10/26/21 09:00 Nasal Cannula 3.00 10/26/21 08:33 Nasal Cannula 2.00 10/26/21 08:00 154 100/67 98 Nasal Cannula 2.00 10/26/21 08:00 Nasal Cannula 3.00 10/26/21 08:00 36.3 10/26/21 08:00 95 Nasal Cannula 3.00 10/26/21 07:00 157 10/26/21 07:00 154 20 106/76 96 Nasal Cannula 2.00 10/26/21 06:32 149 91/69 10/26/21 06:10 87 Nasal Cannula 2.00 10/26/21 06:00 163 24 113/70 91 Room Air 10/26/21 05:00 146 24 85/54 92 Room Air 10/26/21 04:00 95 Room Air 10/26/21 04:00 35.9 10/26/21 04:00 146 26 96/63 94 Room Air 10/26/21 03:00 144 21 85/51 99 Room Air 10/26/21 02:31 89/62 10/26/21 02:00 149 24 96/57 92 Room Air 10/26/21 01:00 144 10/26/21 01:00 144 24 114/76 99 Room Air 10/26/21 00:00 95 Room Air 10/26/21 00:00 36.1 10/26/21 00:00 142 33 115/77 Room Air 10/25/21 23:00 146 33 88/65 Room Air 10/25/21 22:13 123/66 10/25/21 22:00 141 33 76/52 Room Air 10/25/21 21:00 137 33 122/76 Room Air 10/25/21 20:00 144 33 96/54 Room Air 10/25/21 20:00 95 Room Air 10/25/21 20:00 36.2 10/25/21 19:06 83/67 10/25/21 19:00 133 33 105/63 Room Air 10/25/21 19:00 133 10/25/21 18:00 137 33 81/52 Room Air 10/25/21 17:00 141 11 84/58 Room Air 10/25/21 16:00 36.2 10/25/21 16:00 95 Room Air 10/25/21 16:00 142 19 105/68 98 Room Air 10/25/21 15:00 146 42 96 Room Air 10/25/21 14:00 131 20 91/60 98 Room Air 10/25/21 13:28 140 93/51 10/25/21 13:00 141 34 80/67 95 Room Air 10/25/21 13:00 143 10/25/21 12:00 95 Room Air 10/25/21 12:00 140 21 93/51 98 Room Air 10/25/21 11:56 35.9 I & O 10/26/21 07:00 Intake Total 3850 ml Output Total 625 ml Balance 3225 ml Capillary Refill : Less Than 3 Seconds General Appearance: No Apparent Distress HEENT: PERRL/EOMI Neck: Full Range of Motion Respiratory: Chest Non Tender, Decreased Breath Sounds Cardiovascular: Regular Rate, Rhythm Gastrointestinal: soft, distended Extremity: Normal Capillary Refill Neurologic/Psychiatric: Disoriented Skin: Normal Color Lymphatic: No Adenopathy Results Lab Laboratory Tests 10/25/21 11:31: Glucometer 172H 10/25/21 17:40: Glucometer 155H 10/25/21 23:03: Glucometer 150H 10/26/21 05:20: White Blood Count 15.2H, Red Blood Count 2.70L, Hemoglobin 11.3L, Hematocrit 32L , Mean Corpuscular Volume 117H, Mean Corpuscular Hemoglobin 42H, Mean Corpuscular Hemoglobin Concent 36, Red Cell Distribution Width 13.7, Platelet Count 35*L, Mean Platelet Volume 11.1, Immature Granulocyte % (Auto) 1, Neutrophils (%) (Auto) 76H, Lymphocytes (%) (Auto) 9L, Monocytes (%) (Auto) 13H, Eosinophils (%) (Auto) 1, Basophils (%) (Auto) 0, Neutrophils # (Auto) 11.6H, Lymphocytes # (Auto) 1.3, Monocytes # (Auto) 2.0H, Eosinophils # (Auto) 0.1, Basophils # (Auto) 0.1, Immature Granulocyte # (Auto) 0.1, Percent Immature Platelet Fraction 6.1, Sodium Level 137, Potassium Level 4.2, Chloride Level 111H, Carbon Dioxide Level 13L, Anion Gap 13, Blood Urea Nitrogen 36H, Creatinine 1.80H, Estimat Glomerular Filtration Rate 38, BUN/Creatinine Ratio 20, Glucose Level 140H, Calcium Level 7.5L, Corrected Calcium 8.9, Phosphorus Level 3.1, Magnesium Level 1.7, Total Bilirubin 2.9H, Aspartate Amino Transf (AST/SGOT) 92H, Alanine Aminotransferase (ALT/SGPT) 76H, Alkaline Phosphatase 114, Total Protein 5.0L, Albumin 2.2L Microbiology 10/20/21 MRSA Screen - Final, Complete MRSA not isolated 10/20/21 Gram Stain - Final, Complete 10/20/21 Wound Culture - Final, Complete Mixed Bacterial Layla Enterococcus species 10/20/21 Blood Culture - Final, Complete No growth Assessment/Plan Assessment/Plan Assess & Plan/Chief Complaint liver cirrhosis s/p lap cholecystectomy 10/04/21. likely end stage liver dz. will proceed with placement interrupted figure of 8 sutures across umbilical wound. low protein diet. Na and fluid restriction. cont spironolactone. continues to be hypotensive and tachycardic. will get CT chest/abd/pelvis. MAMTA ALBERT MD Oct 26, 2021 11:28
--- NOTE | 2021-10-26 12:31 | Diagnostic Imaging Report ---
PROCEDURE: CT chest with contrast, CT abdomen and pelvis with and without contrast. TECHNIQUE: Pre and post intravenous contrast axial imaging of the abdomen and pelvis and post contrast axial imaging of the chest were performed. Auto Exposure Controls were utilized during the CT exam to meet ALARA standards for radiation dose reduction. INDICATION: Status post recent laparoscopic cholecystectomy. Now with increased abdominal distention. COMPARISON: 10/20/2021 FINDINGS: CT CHEST: Evaluation of the lung zamora demonstrates mild bilateral pleural effusions and associated atelectasis. Pulmonary parenchymal evaluation is degraded by motion artifact. Pulmonary nodule may be obscured. There is no pneumothorax on either side. Cardiomediastinal structures show mild cardiomegaly. There is no large pericardial effusion. Moderate to advanced calcified coronary and mild scattered calcified aortic, calcified atherosclerosis is noted. No pathologically enlarged or morphologically abnormal adenopathy is seen within the mediastinum, jennifer, nor axilla. Osseous structures show age-related degenerative changes. No lytic or blastic bony lesions are seen. CT ABDOMEN: There is moderate abdominal pelvic free fluid. This has progressed since the previous exam. No loculated air-fluid collection is seen. There is no pneumoperitoneum. A few colonic diverticula are noted. There is no CT evidence of acute diverticulitis. Small bowel loops are nondistended. Normal appendix cannot be adequately identified. Multiple punctate nonobstructive renal calculi are identified bilaterally. Otherwise, the kidneys, adrenal glands, spleen, pancreas, and liver have a normal CT appearance. Portal vein shows normal enhancement. No abnormal mesenteric or retroperitoneal adenopathy is seen. Mild to moderate calcified aortic and arterial atherosclerosis is noted. Osseous structures show no acute abnormalities. CT PELVIS: Lara catheter is present within the urinary bladder. Urinary bladder is decompressed. Again, there is pelvic free fluid. There is no loculated air-fluid collection or pneumoperitoneum. No abnormal lymph nodes are identified. Osseous structures show no acute abnormalities. IMPRESSION: 1. Interval progression of moderate abdominal pelvic free fluid. While this may be on the basis of progressive ascites, bile leak should be considered given the history of recent cholecystectomy. 2. No loculated air-fluid collection or pneumoperitoneum. 3. Multiple punctate bilateral nonobstructive renal calculi. 4. Mild bilateral pleural effusions with associated atelectasis. Dictated by: Dictated on workstation # [id number]
--- NOTE | 2021-10-26 14:35 | Diagnostic Imaging Report ---
INDICATION: Ascites. TECHNIQUE: Interrogation of all four quadrants was performed. FINDINGS: Right upper quadrant is unremarkable. There is moderate fluid in the right lower quadrant. The left upper quadrant is unremarkable. Qiisy-so-[id number] amount of fluid in the left lower quadrant is noted. Areas were marked for Dr. Zamora for performance of paracentesis. IMPRESSION: Right lower quadrant and left lower quadrant ascites. Dictated by: Dictated on workstation # [id number]
[2021-10-26] MEDS: NOREPINEPHRINE 16 MG in NS (IVPB) 234 ML IV SCH ×2 (15:42→20:24)
[2021-10-26 16:19] LABS: FIBRIN DEGRADATION PRODUCTS 18.14 UG/ML (0.00-0.49); INR 1.9 (0.8-1.4); PROTHROMBIN TIME PATIENT 22.4 SEC (12.2-14.7)
--- NOTE | 2021-10-26 17:50 | Progress Note - Hospitalist ---
Subjective HPI/CC On Admission Date Seen by Provider: Oct 26, 2021 Time Seen by Provider: 09:30 Patient is 81-year-old male past medical history of cirrhosis, hypertension, and recent cholecystectomy who presented to the emergency room due to drainage from surgical wounds and low blood pressure. He is a very poor historian but per the ER note he also complained of nausea and decreased appetite. He told me his surgery was 2 years ago though records reveal it was much more recent than that (10/04). He does not complain of any of this to me and states he is feeling very well. When asked why he came to the hospital then if he was feeling well he states because his sister is a nurse. Reviewing records reveals he was seen in the emergency department last week for drainage from surgical incisions and a suture was placed. He saw Dr. ALBERT's nurse practitioner on October 17 for removal. Since then he has continued to have drainage. He also continues to drink 1-2 glasses of wine a day. Subjective/Events-last exam He is more confused today. He is slurring his speech a bit. He denies complaints or concerns. His family is present and is updated regarding his current status, plan, and prognosis. Objective Exam Vital Signs Vital Signs Date Time Temp Pulse Resp B/P (MAP) Pulse Ox O2 Delivery O2 Flow Rate FiO2 10/26/21 17:00 154 26 89/74 91 Nasal Cannula 3.00 10/26/21 15:25 36.3 Capillary Refill : Less Than 3 Seconds General Appearance: Chronically ill, Mild Distress (abnormal respirations), Ob sathya Respiratory: Decreased Breath Sounds, Respiratory Distress (abnormal respi rations) Cardiovascular: No Murmur, Tachycardia Gastrointestinal: Normal Bowel Sounds, Distended Extremity: Normal Inspection, Pedal Edema Neurologic/Psychiatric: Alert, Motor Weakness Skin: Warm/Dry, Jaundice Results/Procedures Lab Laboratory Tests 10/26/21 05:20 Patient resulted labs reviewed. Imaging: Reviewed Imaging Report Assessment/Plan Assessment and Plan Assess & Plan/Chief Complaint Septic shock Oliguric GONZALES Recent cholecystectomy Possible SBP Thrombocytopenia DIC End stage liver disease Decompensated cirrhosis Poor prognosis Goals of care discussion Cultures with Enterococcus CT chest/abdomen today Continue Unasyn Continue fluids, adding Bicarb Continue pressors Continue midodrine Surgery following Palliative care consulted DVT ppx: SCDs Critical Care Critically Ill Patient Diagnosis/Problems Diagnosis/Problems (1) Septic shock Status: Acute (2) DIC (disseminated intravascular coagulation) Status: Acute (3) Severe sepsis Status: Acute (4) Abdominal infection Status: Acute (5) S/P cholecystectomy Status: Chronic (6) End-stage liver disease Status: Acute (7) Poor prognosis Status: Acute (8) Hypotension Status: Acute PJ NATARAJAN MD Oct 26, 2021 17:50
[2021-10-27] MEDS: NOREPINEPHRINE 16 MG in NS (IVPB) 234 ML IV SCH ×4 (00:03→16:06)
[2021-10-27] MEDS ORDERED: SODIUM BICARB 8.4% 50 MEQ/50 ML (ABBOTT) SYR IV ONE (01:45)
[2021-10-27] MEDS ORDERED: MAGNESIUM 1 GM/100 ML IVPB 100 ML IV ONE ×2 (01:45→01:46)
[2021-10-27] MEDS ORDERED: ALBUMIN 5% 12.5 GM/250 ML 250 ML IV ONE ×3 (01:45→06:15)
[2021-10-27] MEDS ORDERED: SODIUM BICARB 8.4% 50 MEQ/50 ML (ABBOTT) SYR ONE (01:46)
[2021-10-27] MEDS: LORazepam INJ 2 MG/ML (ATIVAN) VIAL IV PRN (03:03)
[2021-10-27 04:53] LABS: HEMOGLOBIN 10.1 g/dL (13.3-17.7); MONOCYTES % (AUTO) 14 % (0-12)
[2021-10-27 04:55] LABS: BASOPHILS # (AUTO) 0.1 10^3/uL (0.0-0.1); BASOPHILS % (AUTO) 0 % (0-10); EOSINOPHILS # (AUTO) 0.1 10^3/uL (0.0-0.3); EOSINOPHILS % (AUTO) 1 % (0-10); HEMATOCRIT 28 % (40-54); LYMPHOCYTES # (AUTO) 1.7 10^3/uL (1.0-4.0); LYMPHOCYTES % (AUTO) 11 % (12-44); MEAN CORPUSCULAR HEMOGLOBIN 42 pg (25-34); MEAN CORPUSCULAR HGB CONC 36 g/dL (32-36); MEAN CORPUSCULAR VOLUME 118 fL (80-99); MEAN PLATELET VOLUME 11.8 fL (9.0-12.2); MONOCYTES # (AUTO) 2.2 10^3/uL (0.0-1.0); NEUTROPHILS # (AUTO) 11.9 10^3/uL (1.8-7.8); NEUTROPHILS % (AUTO) 74 % (42-75)
[2021-10-27 05:01] LABS: PLATELET COUNT 30 10^3/uL (130-400)
[2021-10-27 05:09] LABS: ALBUMIN 2.2 GM/DL (3.2-4.5)
[2021-10-27 05:10] LABS: POTASSIUM 4.4 MMOL/L (3.6-5.0)
[2021-10-27 05:11] LABS: CALCIUM 7.2 MG/DL (8.5-10.1)
[2021-10-27 05:12] LABS: TOTAL PROTEIN 4.6 GM/DL (6.4-8.2)
[2021-10-27 05:14] LABS: BILIRUBIN,TOTAL 2.5 MG/DL (0.1-1.0)
[2021-10-27 05:15] LABS: PHOSPHORUS 3.7 MG/DL (2.3-4.7)
[2021-10-27 05:16] LABS: CREATININE SERUM 2.34 MG/DL (0.60-1.30)
[2021-10-27 05:19] LABS: MAGNESIUM 1.9 MG/DL (1.6-2.4)
[2021-10-27] MEDS: AMPICILLIN/SULBACTAM INJECTION 1.5 GM in NS (IVPB) 100 ML IV SCH (05:58)
[2021-10-27] MEDS ORDERED: NS (IVPB) 100 ML ONE (06:22)
[2021-10-27] MEDS ORDERED: VASOPRESSIN INJECTION 20 UNIT/ML VIAL ONE (06:23)
[2021-10-27] MEDS: VASOPRESSIN INJECTION 20 UNIT in NS (IVPB) 100 ML IV SCH ×2 (06:29→16:08)
[2021-10-27] MEDS: FOLIC ACID 1 MG TAB PO SCH (08:15)
[2021-10-27] MEDS: MIDODRINE 10 MG (PROAMATINE) TAB PO SCH ×3 (08:15→17:20)
[2021-10-27] MEDS: SODIUM BICARBONATE 8.4% VIAL 100 MEQ in 1/2 NS IV SOLUTION 1,000 ML IV SCH ×2 (08:15→16:13)
[2021-10-27] MEDS: THIAMINE 100 MG (VITAMIN B-1) TAB PO SCH (08:16)
--- NOTE | 2021-10-27 09:48 | Physical Therapy Progress Note ---
Therapy Progress Note Patient is still on hold per nursing. Will continue to follow. LEIDY GHOTRA PT Oct 27, 2021 09:48
[2021-10-27] MEDS ORDERED: LIDOCAINE 1% INJ 20 ML VIAL ONE (10:23)
--- NOTE | 2021-10-27 10:40 | Tele-ICU Progress Note ---
Progress Note video rounds completed 81 y/o male with cirrhosis and s/p recent lap choly Admitted for drainage from incision, antonia ascites Has developed decompensated cirrhosis with rising T . Bili and transaminases. Likely has hepatorenal syndrome with rising creatinine. Now made DNR. PE: pulse: 128 Sinus tach BP: 95/65 while on levophed and vasopressin Plts: 30,000 PLAN: continue suportive care Focused Exam Lactate Level 10/27/21 04:45: Lactic Acid Level 1.44 Height, Weight, BMI Height: 5'9.00" Weight: 179lbs. 0.0oz. 81.262524hy; 32.72 BMI Method: Laboratory Tests 10/27/21 04:45 Labs Labs Laboratory Tests 10/26/21 13:18: Glucometer 154H 10/26/21 15:00: Prothrombin Time 22.4H, INR Comment 1.9H, Activated Partial Thromboplast Time 46H, Fibrinogen 147L, D-Dimer 18.14H 10/26/21 17:38: Glucometer 150H 10/27/21 04:45: White Blood Count 16.0H, Red Blood Count 2.40L, Hemoglobin 10.1L, Hematocrit 28L , Mean Corpuscular Volume 118H, Mean Corpuscular Hemoglobin 42H, Mean Xavier uscular Hemoglobin Concent 36, Red Cell Distribution Width 14.3, Platelet Count 30*L, Mean Platelet Volume 11.8, Immature Granulocyte % (Auto) 1, Neutrophils (%) (Auto) 74, Lymphocytes (%) (Auto) 11L, Monocytes (%) (Auto) 14H, Eosinophils (%) (Auto) 1, Basophils (%) (Auto) 0, Neutrophils # (Auto) 11.9H, Lymphocytes # (Auto) 1.7, Monocytes # (Auto) 2.2H, Eosinophils # (Auto) 0.1, Basophils # ( Auto) 0.1, Immature Granulocyte # (Auto) 0.1, Percent Immature Platelet Fraction 7.6, Sodium Level 140, Potassium Level 4.4, Chloride Level 111H, Carbon Dioxide Level 16L, Anion Gap 13, Blood Urea Nitrogen 45H, Creatinine 2.34H, Estimat Glomerular Filtration Rate 28, BUN/Creatinine Ratio 19, Glucose Level 161H, Lactic Acid Level 1.44, Calcium Level 7.2L, Corrected Calcium 8.6, Phosphorus Level 3.7, Magnesium Level 1.9, Total Bilirubin 2.5H, Aspartate Amino Transf (AST/SGOT) 79H, Alanine Aminotransferase (ALT/SGPT) 64H, Alkaline Phosphatase 111, Total Protein 4.6L, Albumin 2.2L 10/27/21 10:32: Glucometer 145H Microbiology 10/20/21 MRSA Screen - Final, Complete MRSA not isolated 10/20/21 Gram Stain - Final, Complete 10/20/21 Wound Culture - Final, Complete Mixed Bacterial Layla Enterococcus species 10/20/21 Blood Culture - Final, Complete No growth Lab results: Laboratory Tests Test 10/26/21 13:18 10/26/21 15:00 10/26/21 17:38 10/27/21 04:45 Range/Units Glucometer 154 H 150 H 70-110 MG/DL Prothrombin Time 22.4 H 12.2-14.7 SEC INR Comment 1.9 H 0.8-1.4 Activated Partial Thromboplast Time 46 H 24-35 SEC Fibrinogen 147 L 221-496 MG/DL D-Dimer 18.14 H 0.00-0.49 UG/ML White Blood Count 16.0 H 4.3-11.0 10^3/uL Red Blood Count 2.40 L 4.30-5.52 10^6/uL Hemoglobin 10.1 L 13.3-17.7 g/dL Hematocrit 28 L 40-54 % Mean Corpuscular Volume 118 H 80-99 fL Mean Corpuscular Hemoglobin 42 H 25-34 pg Mean Corpuscular Hemoglobin Concent 36 32-36 g/dL Red Cell Distribution Width 14.3 10.0-14.5 % Platelet Count 30 *L 130-400 10^3/uL Mean Platelet Volume 11.8 9.0-12.2 fL Immature Granulocyte % (Auto) 1 % Neutrophils (%) (Auto) 74 42-75 % Lymphocytes (%) (Auto) 11 L 12-44 % Monocytes (%) (Auto) 14 H 0-12 % Eosinophils (%) (Auto) 1 0-10 % Basophils (%) (Auto) 0 0-10 % Neutrophils # (Auto) 11.9 H 1.8-7.8 10^3/uL Lymphocytes # (Auto) 1.7 1.0-4.0 10^3/uL Monocytes # (Auto) 2.2 H 0.0-1.0 10^3/uL Eosinophils # (Auto) 0.1 0.0-0.3 10^3/uL Basophils # (Auto) 0.1 0.0-0.1 10^3/uL Immature Granulocyte # (Auto) 0.1 0.0-0.1 10^3/uL Percent Immature Platelet Fraction 7.6 0.0-7.6 % Sodium Level 140 135-145 MMOL/L Potassium Level 4.4 3.6-5.0 MMOL/L Chloride Level 111 H 98-107 MMOL/L Carbon Dioxide Level 16 L 21-32 MMOL/L Anion Gap 13 5-14 MMOL/L Blood Urea Nitrogen 45 H 7-18 MG/DL Creatinine 2.34 H 0.60-1.30 MG/DL Estimat Glomerular Filtration Rate 28 BUN/Creatinine Ratio 19 Glucose Level 161 H 70-105 MG/DL Lactic Acid Level 1.44 0.50-2.00 MMOL/L Calcium Level 7.2 L 8.5-10.1 MG/DL Corrected Calcium 8.6 8.5-10.1 MG/DL Phosphorus Level 3.7 2.3-4.7 MG/DL Magnesium Level 1.9 1.6-2.4 MG/DL Total Bilirubin 2.5 H 0.1-1.0 MG/DL Aspartate Amino Transf (AST/SGOT) 79 H 5-34 U/L Alanine Aminotransferase (ALT/SGPT) 64 H 0-55 U/L Alkaline Phosphatase 111 40-136 U/L Total Protein 4.6 L 6.4-8.2 GM/DL Albumin 2.2 L 3.2-4.5 GM/DL Test 10/27/21 10:32 Range/Units Glucometer 145 H 70-110 MG/DL HAI LYNN MD Oct 27, 2021 10:40
--- NOTE | 2021-10-27 11:02 | Progress Note ---
Subjective Date Seen by a Provider: Oct 27, 2021 Time Seen by a Provider: 10:00 Subjective/Events-last exam patient status unchanged. somnolent and confused. CT and US showed recurrent ascites. Focused Exam Lactate Level 10/27/21 04:45: Lactic Acid Level 1.44 Objective Exam Vital Signs Date Time Temp Pulse Resp B/P (MAP) Pulse Ox O2 Delivery O2 Flow Rate FiO2 10/27/21 09:00 144 19 124/74 90 Nasal Cannula 3.00 10/27/21 08:22 36.0 10/27/21 08:00 133 18 107/77 99 Nasal Cannula 3.00 10/27/21 08:00 96 Nasal Cannula 3.00 10/27/21 07:00 156 19 91/51 98 Nasal Cannula 3.00 10/27/21 07:00 149 10/27/21 06:29 156 92/60 10/27/21 06:00 156 18 92/60 98 Nasal Cannula 3.00 10/27/21 05:00 151 18 96/57 97 Nasal Cannula 3.00 10/27/21 04:02 36.8 10/27/21 04:00 95 Nasal Cannula 3.00 10/27/21 04:00 154 20 89/76 97 Nasal Cannula 3.00 10/27/21 03:00 172 23 100/75 96 Nasal Cannula 3.00 10/27/21 02:00 181 25 105/60 95 Nasal Cannula 3.00 10/27/21 01:00 168 25 92/58 97 Nasal Cannula 3.00 10/27/21 01:00 168 10/27/21 00:00 36.3 10/27/21 00:00 158 18 90/64 95 Nasal Cannula 3.00 10/26/21 23:59 95 Nasal Cannula 3.00 10/26/21 23:00 160 21 95/64 96 Nasal Cannula 3.00 10/26/21 22:34 36.1 10/26/21 22:00 118 27 82/56 91 Nasal Cannula 3.00 10/26/21 21:00 146 22 83/73 100 Nasal Cannula 3.00 10/26/21 20:34 36.9 10/26/21 20:00 95 Nasal Cannula 3.00 10/26/21 20:00 152 23 107/87 97 Nasal Cannula 3.00 10/26/21 19:00 152 25 101/64 95 Nasal Cannula 3.00 10/26/21 19:00 166 10/26/21 18:00 165 25 99/65 96 Nasal Cannula 3.00 10/26/21 17:00 154 26 89/74 91 Nasal Cannula 3.00 10/26/21 16:00 95 Nasal Cannula 3.00 10/26/21 16:00 154 20 90/78 90 Nasal Cannula 3.00 10/26/21 15:25 36.3 10/26/21 15:00 149 27 100/71 95 Nasal Cannula 3.00 10/26/21 14:00 152 22 108/55 99 Nasal Cannula 3.00 10/26/21 13:00 149 22 90/68 98 Nasal Cannula 3.00 10/26/21 12:43 102/81 10/26/21 12:36 148 10/26/21 12:00 142 19 90/65 98 Nasal Cannula 3.00 10/26/21 12:00 36.2 10/26/21 12:00 95 Nasal Cannula 3.00 10/26/21 11:00 154 29 84/68 95 Nasal Cannula 3.00 I & O 10/27/21 07:00 Intake Total 950.2 ml Output Total 270 ml Balance 680.2 ml Capillary Refill : Less Than 3 Seconds General Appearance: No Apparent Distress HEENT: PERRL/EOMI Neck: Full Range of Motion Respiratory: Normal Breath Sounds Cardiovascular: Regular Rate, Rhythm Gastrointestinal: soft, distended Extremity: Normal Capillary Refill Neurologic/Psychiatric: Alert, Disoriented Skin: Normal Color Lymphatic: No Adenopathy Results Lab Laboratory Tests 10/26/21 13:18: Glucometer 154H 10/26/21 15:00: Prothrombin Time 22.4H, INR Comment 1.9H, Activated Partial Thromboplast Time 46H, Fibrinogen 147L, D-Dimer 18.14H 10/26/21 17:38: Glucometer 150H 10/27/21 04:45: White Blood Count 16.0H, Red Blood Count 2.40L, Hemoglobin 10.1L, Hematocrit 28L , Mean Corpuscular Volume 118H, Mean Corpuscular Hemoglobin 42H, Mean Corpuscular Hemoglobin Concent 36, Red Cell Distribution Width 14.3, Platelet Count 30*L, Mean Platelet Volume 11.8, Immature Granulocyte % (Auto) 1, Neutrophils (%) (Auto) 74, Lymphocytes (%) (Auto) 11L, Monocytes (%) (Auto) 14H, Eosinophils (%) (Auto) 1, Basophils (%) (Auto) 0, Neutrophils # (Auto) 11.9H, Lymphocytes # (Auto) 1.7, Monocytes # (Auto) 2.2H, Eosinophils # (Auto) 0.1, Basophils # (Auto) 0.1, Immature Granulocyte # (Auto) 0.1, Percent Immature Platelet Fraction 7.6, Sodium Level 140, Potassium Level 4.4, Chloride Level 111H, Carbon Dioxide Level 16L, Anion Gap 13, Blood Urea Nitrogen 45H, Creatinine 2.34H, Estimat Glomerular Filtration Rate 28, BUN/Creatinine Ratio 19, Glucose Level 161H, Lactic Acid Level 1.44, Calcium Level 7.2L, Corrected Calcium 8.6, Phosphorus Level 3.7, Magnesium Level 1.9, Total Bilirubin 2.5H, Aspartate Amino Transf (AST/SGOT) 79H, Alanine Aminotransferase (ALT/SGPT) 64H, Alkaline Phosphatase 111, Total Protein 4.6L, Albumin 2.2L 10/27/21 10:32: Glucometer 145H Microbiology 10/20/21 MRSA Screen - Final, Complete MRSA not isolated 10/20/21 Gram Stain - Final, Complete 10/20/21 Wound Culture - Final, Complete Mixed Bacterial Layla Enterococcus species 10/20/21 Blood Culture - Final, Complete No growth Assessment/Plan Assessment/Plan Assess & Plan/Chief Complaint liver cirrhosis s/p lap cholecystectomy 10/04/21. likely end stage liver dz. will proceed with placement interrupted figure of 8 sutures across umbilical wound. low protein diet. Na and fluid restriction. cont spironolactone. continues to be hypotensive and tachycardic. will get CT chest/abd/pelvis. will proceed with paracentesis. MAMTA ALBERT MD Oct 27, 2021 11:02
--- NOTE | 2021-10-27 18:52 | OPERATIVE REPORT ---
DATE OF SERVICE: 10/27/2021 PREOPERATIVE DIAGNOSIS: Recurrent ascites with history of liver cirrhosis. POSTOPERATIVE DIAGNOSIS: Recurrent ascites with history of liver cirrhosis. PROCEDURE PERFORMED: Paracentesis. SURGEON: Mamta Albert MD. ANESTHESIA: Local. ESTIMATED BLOOD LOSS: Minimal. FINDINGS: Straw yellow transudative fluid. DISPOSITION: The patient tolerated the procedure well. INDICATIONS FOR PROCEDURE: The patient is a 81-year-old male known to us. He had symptomatic gallstones; however, before this, he had undergone a paracentesis, which was felt to be cryptogenic at that time. He then underwent a laparoscopic cholecystectomy and was also found to have significant liver cirrhosis. Since that time, his overall health has declined and he continues to have recurrent symptomatic ascites. DESCRIPTION OF PROCEDURE: Before the procedure, an ultrasound was performed and marked in the left lower abdominal quadrant. The area was then prepped and draped in a standard surgical fashion. A 1% lidocaine was then used to anesthetize the skin, subcutaneous tissue, muscle layers as well as the peritoneal lining. A vertical skin incision was then made using an 11 blade and the trocar and sheath were then introduced withdrawing a straw yellow transudative fluid and the catheter was advanced over the trocar without any resistance. The catheter was then connected to tubing and a gravity drainage bag. Catheter was then cleaned and covered with gauze followed by Op-Site. The patient tolerated the procedure well. We will continue with decompression for the next several days, then remove the catheter. Job ID: [id number] DocumentID: [id number] Dictated Date: 10/27/2021 11:06:30 Preschool Education Director Date: 10/27/2021 18:51:40 Dictated By: MAMTA ALBERT MD
--- NOTE | 2021-10-27 19:19 | Progress Note - Hospitalist ---
Subjective HPI/CC On Admission Date Seen by Provider: Oct 27, 2021 Time Seen by Provider: 09:40 Patient is 81-year-old male past medical history of cirrhosis, hypertension, and recent cholecystectomy who presented to the emergency room due to drainage from surgical wounds and low blood pressure. He is a very poor historian but per the ER note he also complained of nausea and decreased appetite. He told me his surgery was 2 years ago though records reveal it was much more recent than that (10/04). He does not complain of any of this to me and states he is feeling very well. When asked why he came to the hospital then if he was feeling well he states because his sister is a nurse. Reviewing records reveals he was seen in the emergency department last week for drainage from surgical incisions and a suture was placed. He saw Dr. ALBERT's nurse practitioner on October 17 for removal. Since then he has continued to have drainage. He also continues to drink 1-2 glasses of wine a day. Subjective/Events-last exam He has no complaints or concerns. There is no family at the bedside at this time . Focused Exam Lactate Level 10/27/21 04:45: Lactic Acid Level 1.44 Objective Exam Vital Signs Vital Signs Date Time Temp Pulse Resp B/P (MAP) Pulse Ox O2 Delivery O2 Flow Rate FiO2 10/27/21 20:25 36.3 10/27/21 20:00 100 Nasal Cannula 3.00 10/27/21 18:00 141 19 105/59 Capillary Refill : Less Than 3 Seconds General Appearance: No Apparent Distress, Chronically ill, Obese Respiratory: Lungs Clear, No Respiratory Distress Cardiovascular: No Murmur, Tachycardia Gastrointestinal: Normal Bowel Sounds, Non Tender, Distended Extremity: Normal Inspection, Pedal Edema Neurologic/Psychiatric: Alert, Normal Mood/Affect Skin: Warm/Dry, Jaundice Results/Procedures Lab Laboratory Tests 10/27/21 04:45 Patient resulted labs reviewed. Imaging: Reviewed Imaging Report Assessment/Plan Assessment and Plan Assess & Plan/Chief Complaint Septic shock Oliguric GONZALES Recent cholecystectomy Possible SBP Thrombocytopenia DIC End stage liver disease Decompensated cirrhosis Poor prognosis Goals of care discussion Cultures with Enterococcus CT chest/abdomen with moderate ascites Continue Unasyn Continue fluids with Bicarb Continue pressors Continue midodrine Paracentesis today TeleICU following Surgery following Cardiology following Palliative care following DVT ppx: SCDs Critical Care Critically Ill Patient Diagnosis/Problems Diagnosis/Problems (1) Septic shock Status: Acute (2) DIC (disseminated intravascular coagulation) Status: Acute (3) Severe sepsis Status: Acute (4) Abdominal infection Status: Acute (5) S/P cholecystectomy Status: Chronic (6) End-stage liver disease Status: Acute (7) Poor prognosis Status: Acute (8) Hypotension Status: Acute PJ NATARAJAN MD Oct 27, 2021 19:19
[2021-10-28] MEDS: NOREPINEPHRINE 16 MG in NS (IVPB) 234 ML IV SCH (01:32)
[2021-10-28] MEDS: VASOPRESSIN INJECTION 20 UNIT in NS (IVPB) 100 ML IV SCH ×2 (04:51→14:00)
[2021-10-28 05:19] LABS: BASOPHILS % (AUTO) 0 % (0-10); EOSINOPHILS # (AUTO) 0.1 10^3/uL (0.0-0.3); EOSINOPHILS % (AUTO) 1 % (0-10); HEMATOCRIT 26 % (40-54); LYMPHOCYTES # (AUTO) 1.5 10^3/uL (1.0-4.0); LYMPHOCYTES % (AUTO) 16 % (12-44); MEAN CORPUSCULAR HEMOGLOBIN 42 pg (25-34); MEAN CORPUSCULAR HGB CONC 35 g/dL (32-36); MEAN CORPUSCULAR VOLUME 118 fL (80-99); MEAN PLATELET VOLUME 12.2 fL (9.0-12.2); MONOCYTES # (AUTO) 1.3 10^3/uL (0.0-1.0); MONOCYTES % (AUTO) 13 % (0-12); NEUTROPHILS # (AUTO) 6.7 10^3/uL (1.8-7.8); NEUTROPHILS % (AUTO) 69 % (42-75); WHITE BLOOD COUNT 9.6 10^3/uL (4.3-11.0)
[2021-10-28 05:21] LABS: PLATELET COUNT 28 10^3/uL (130-400)
[2021-10-28 05:28] LABS: CALCIUM 7.2 MG/DL (8.5-10.1)
[2021-10-28 05:29] LABS: TOTAL PROTEIN 4.3 GM/DL (6.4-8.2)
[2021-10-28 05:31] LABS: BILIRUBIN,TOTAL 2.1 MG/DL (0.1-1.0)
[2021-10-28 05:32] LABS: PHOSPHORUS 3.2 MG/DL (2.3-4.7)
[2021-10-28 05:33] LABS: CREATININE SERUM 2.7 MG/DL (0.60-1.30)
[2021-10-28 05:35] LABS: MAGNESIUM 1.9 MG/DL (1.6-2.4)
[2021-10-28] MEDS: SODIUM BICARBONATE 8.4% VIAL 100 MEQ in 1/2 NS IV SOLUTION 1,000 ML IV SCH ×2 (06:16→17:11)
[2021-10-28] MEDS: THIAMINE 100 MG (VITAMIN B-1) TAB PO SCH (08:23)
[2021-10-28] MEDS: FOLIC ACID 1 MG TAB PO SCH (08:23)
[2021-10-28] MEDS: MIDODRINE 10 MG (PROAMATINE) TAB PO SCH ×3 (08:23→17:11)
--- NOTE | 2021-10-28 09:26 | Tele-ICU Progress Note ---
Subjective Date Seen by a Provider: October 28, 2021 Time Seen by a Provider: 07:35 Subjective/Events-last exam This virtual visit was conducted using real time audio/video. Thank you for asking us to see this patient for sepsis. Paracentesis catheter placed 10/27/21. PE: VSS. O2 sat 100% on 3 LPM NC. HEENT: No obvious masses, adenopathy or JVD. Chest: clear to auscultation. CV: RRR S1 S2 No murmur or added sounds. Abd: Non-tender. Bowel sounds Y. : Unremarkable. Lara Y. PARTS ORDER AND STOCK CLERK/psychiatric: Grossly intact. No obvious focal findings. Extremities: Trace edema. Capillary refill < 3 seconds. Skin: unremarkable. Results: Elevated BUN 62, Creat 2.7. Decreased Hb 9.0, plts 28K., Alb 2.0. CXR: clear. Available chart/ vitals / labs / images reviewed. Video assessment done using teleICU camera, rest of exam as per RN. A/P: Critical Care: critically ill patient. Cont.Levo., SCDs, thiamine, folate, bicarb drip, midodrine. Wean Levo as norm. Hem consult w low plts. 3rd request Discussed with TONY Loredo. Asked RN to reach out to eICU if any questions or concerns later. Time spent with patient/coordination of care with other health professionals (mins): 20 Sepsis Event Evaluation Height, Weight, BMI Height: 5'9.00" Weight: 179lbs. 0.0oz. [id number]; 32.72 BMI Method: Focused Exam Lactate Level 10/27/21 04:45: Lactic Acid Level 1.44 Exam Exam Patient acknowledged, consented, and participated in this virtual visit which was conducted using real time audio/video Vital Signs Date Time Temp Pulse Resp B/P (MAP) Pulse Ox O2 Delivery O2 Flow Rate FiO2 10/28/21 09:00 125 27 86/56 100 Nasal Cannula 3.00 10/28/21 08:00 100 Nasal Cannula 3.00 10/28/21 08:00 115 19 91/56 100 Nasal Cannula 3.00 10/28/21 08:00 36.1 10/28/21 07:00 117 10/28/21 07:00 124 19 106/60 100 Nasal Cannula 3.00 10/28/21 06:11 Nasal Cannula 3.00 10/28/21 06:00 116 16 89/56 100 Nasal Cannula 3.00 10/28/21 05:00 126 13 99/60 100 Nasal Cannula 3.00 10/28/21 04:51 118 106/59 10/28/21 04:00 100 Nasal Cannula 3.00 10/28/21 04:00 123 15 103/58 100 Nasal Cannula 3.00 10/28/21 03:00 118 14 106/59 100 Nasal Cannula 3.00 10/28/21 02:00 116 20 99/56 100 Nasal Cannula 3.00 10/28/21 01:00 120 10/28/21 01:00 118 18 112/54 100 Nasal Cannula 3.00 10/28/21 00:00 123 16 99/62 100 Nasal Cannula 3.00 10/27/21 23:59 100 Nasal Cannula 3.00 10/27/21 23:00 112 17 108/60 100 Nasal Cannula 3.00 10/27/21 22:00 112 14 103/61 100 Nasal Cannula 3.00 10/27/21 21:00 117 16 97/60 100 Nasal Cannula 3.00 10/27/21 20:25 36.3 10/27/21 20:00 114 15 101/67 100 Nasal Cannula 3.00 10/27/21 20:00 100 Nasal Cannula 3.00 10/27/21 19:00 122 10/27/21 19:00 117 14 93/52 100 Nasal Cannula 3.00 10/27/21 18:00 141 19 105/59 99 Nasal Cannula 3.00 10/27/21 17:00 128 16 84/58 98 Nasal Cannula 3.00 10/27/21 16:08 138 88/50 10/27/21 16:00 100 Nasal Cannula 3.00 10/27/21 16:00 152 22 88/50 100 Nasal Cannula 3.00 10/27/21 15:00 122 24 98/61 100 Nasal Cannula 3.00 10/27/21 14:00 135 23 103/67 100 Nasal Cannula 3.00 10/27/21 13:00 134 13 104/59 91 Nasal Cannula 3.00 10/27/21 12:44 123 10/27/21 12:00 98 Nasal Cannula 3.00 10/27/21 12:00 126 20 116/73 96 Nasal Cannula 3.00 10/27/21 11:45 36.1 10/27/21 11:00 122 16 109/65 97 Nasal Cannula 3.00 10/27/21 10:00 130 16 90/65 96 Nasal Cannula 3.00 I & O 10/28/21 07:00 Intake Total 525 ml Output Total 8830 ml Balance -8305 ml Height & Weight Height: 5'9.00" Weight: 179lbs. 0.0oz. 81.404326wo; 32.72 BMI Method: General Appearance: No Apparent Distress, Chronically ill, Obese HEENT: PERRL/EOMI Neck: Full Range of Motion Respiratory: Lungs Clear, No Respiratory Distress Cardiovascular: No Murmur, Tachycardia Capillary Refill: Less Than 3 Seconds Peripheral Pulses: 2+ Radial Pulses (R), 2+ Radial Pulses (L) Gastrointestinal: soft, distended Extremity: Normal Inspection, Pedal Edema Neurologic/Psychiatric: Alert, Normal Mood/Affect Skin: Warm/Dry, Jaundice Lymphatic: No Adenopathy Results Lab Laboratory Tests 10/27/21 04:45 10/28/21 05:05 Assessment/Plan Assessment/Plan See free text. Critical Care: Critically Ill Patient JOHN BRISENO MD October 28, 2021 09:26
[2021-10-28] MEDS ORDERED: PANTOPRAZOLE 40 MG (PROTONIX) VIAL IV ONE (10:00)
--- NOTE | 2021-10-28 10:04 | Progress Note ---
Subjective Date Seen by a Provider: October 28, 2021 Time Seen by a Provider: 09:00 Subjective/Events-last exam doing slightly better today. more awake/alert. copious ascites drainage. Focused Exam Lactate Level 10/27/21 04:45: Lactic Acid Level 1.44 Objective Exam Vital Signs Date Time Temp Pulse Resp B/P (MAP) Pulse Ox O2 Delivery O2 Flow Rate FiO2 10/28/21 09:00 125 27 86/56 100 Nasal Cannula 3.00 10/28/21 08:00 100 Nasal Cannula 3.00 10/28/21 08:00 115 19 91/56 100 Nasal Cannula 3.00 10/28/21 08:00 36.1 10/28/21 07:00 117 10/28/21 07:00 124 19 106/60 100 Nasal Cannula 3.00 10/28/21 06:11 Nasal Cannula 3.00 10/28/21 06:00 116 16 89/56 100 Nasal Cannula 3.00 10/28/21 05:00 126 13 99/60 100 Nasal Cannula 3.00 10/28/21 04:51 118 106/59 10/28/21 04:00 100 Nasal Cannula 3.00 10/28/21 04:00 123 15 103/58 100 Nasal Cannula 3.00 10/28/21 03:00 118 14 106/59 100 Nasal Cannula 3.00 10/28/21 02:00 116 20 99/56 100 Nasal Cannula 3.00 10/28/21 01:00 120 10/28/21 01:00 118 18 112/54 100 Nasal Cannula 3.00 10/28/21 00:00 123 16 99/62 100 Nasal Cannula 3.00 10/27/21 23:59 100 Nasal Cannula 3.00 10/27/21 23:00 112 17 108/60 100 Nasal Cannula 3.00 10/27/21 22:00 112 14 103/61 100 Nasal Cannula 3.00 10/27/21 21:00 117 16 97/60 100 Nasal Cannula 3.00 10/27/21 20:25 36.3 10/27/21 20:00 114 15 101/67 100 Nasal Cannula 3.00 10/27/21 20:00 100 Nasal Cannula 3.00 10/27/21 19:00 122 10/27/21 19:00 117 14 93/52 100 Nasal Cannula 3.00 10/27/21 18:00 141 19 105/59 99 Nasal Cannula 3.00 10/27/21 17:00 128 16 84/58 98 Nasal Cannula 3.00 10/27/21 16:08 138 88/50 10/27/21 16:00 100 Nasal Cannula 3.00 10/27/21 16:00 152 22 88/50 100 Nasal Cannula 3.00 10/27/21 15:00 122 24 98/61 100 Nasal Cannula 3.00 10/27/21 14:00 135 23 103/67 100 Nasal Cannula 3.00 10/27/21 13:00 134 13 104/59 91 Nasal Cannula 3.00 10/27/21 12:44 123 10/27/21 12:00 98 Nasal Cannula 3.00 10/27/21 12:00 126 20 116/73 96 Nasal Cannula 3.00 10/27/21 11:45 36.1 10/27/21 11:00 122 16 109/65 97 Nasal Cannula 3.00 I & O 10/28/21 06:59 Intake Total 525 ml Output Total 8830 ml Balance -8305 ml Capillary Refill : Less Than 3 Seconds General Appearance: No Apparent Distress HEENT: PERRL/EOMI Neck: Full Range of Motion Respiratory: Chest Non Tender, Normal Breath Sounds Cardiovascular: Regular Rate, Rhythm Gastrointestinal: normal bowel sounds, soft, distended Extremity: Normal Capillary Refill Neurologic/Psychiatric: Disoriented Skin: Normal Color Lymphatic: No Adenopathy Results Lab Laboratory Tests 10/27/21 10:32: Glucometer 145H 10/27/21 11:41: Glucometer 155H 10/27/21 17:55: Glucometer 162H 10/28/21 05:05: White Blood Count 9.6, Red Blood Count 2.17L, Hemoglobin 9.0L, Hematocrit 26L, Mean Corpuscular Volume 118H, Mean Corpuscular Hemoglobin 42H, Mean Corpuscular Hemoglobin Concent 35, Red Cell Distribution Width 14.6H, Platelet Count 28*L, Mean Platelet Volume 12.2, Immature Granulocyte % (Auto) 1, Neutrophils (%) (Auto) 69, Lymphocytes (%) (Auto) 16, Monocytes (%) (Auto) 13H, Eosinophils (%) (Auto) 1, Basophils (%) (Auto) 0, Neutrophils # (Auto) 6.7, Lymphocytes # (Auto) 1.5, Monocytes # (Auto) 1.3H, Eosinophils # (Auto) 0.1, Basophils # (Auto) 0.0, Immature Granulocyte # (Auto) 0.1, Percent Immature Platelet Fraction 7.1, Sodium Level 140, Potassium Level 4.0, Chloride Level 109H, Carbon Dioxide Level 20L, Anion Gap 11, Blood Urea Nitrogen 62H, Creatinine 2.70H, Estimat Glomerular Filtration Rate 23, BUN/Creatinine Ratio 23, Glucose Level 151H, Calcium Level 7.2L, Corrected Calcium 8.8, Phosphorus Level 3.2, Magnesium Level 1.9, Total Bilirubin 2.1H, Aspartate Amino Transf (AST/SGOT) 71H, Alanine Aminotransferase (ALT/SGPT) 53, Alkaline Phosphatase 105, Total Protein 4.3L, Albumin 2.0L Microbiology 10/20/21 MRSA Screen - Final, Complete MRSA not isolated 10/20/21 Gram Stain - Final, Complete 10/20/21 Wound Culture - Final, Complete Mixed Bacterial Layla Enterococcus species 10/20/21 Blood Culture - Final, Complete No growth Assessment/Plan Assessment/Plan Assess & Plan/Chief Complaint liver cirrhosis s/p lap cholecystectomy 10/04/21. likely end stage liver dz. will proceed with placement interrupted figure of 8 sutures across umbilical wound. low protein diet. Na and fluid restriction. cont spironolactone. continues to be hypotensive and tachycardic. will get CT chest/abd/pelvis. will proceed with paracentesis. MAMTA ALBERT MD October 28, 2021 10:04
--- NOTE | 2021-10-28 18:55 | Progress Note - Hospitalist ---
Subjective HPI/CC On Admission Date Seen by Provider: October 28, 2021 Time Seen by Provider: 09:30 Patient is 81-year-old male past medical history of cirrhosis, hypertension, and recent cholecystectomy who presented to the emergency room due to drainage from surgical wounds and low blood pressure. He is a very poor historian but per the ER note he also complained of nausea and decreased appetite. He told me his surgery was 2 years ago though records reveal it was much more recent than that (10/04). He does not complain of any of this to me and states he is feeling very well. When asked why he came to the hospital then if he was feeling well he states because his sister is a nurse. Reviewing records reveals he was seen in the emergency department last week for drainage from surgical incisions and a suture was placed. He saw Dr. ALBERT's nurse practitioner on October 17 for removal. Since then he has continued to have drainage. He also continues to drink 1-2 glasses of wine a day. Subjective/Events-last exam He has no complaints. He wants to go home. His is at the bedside and is updated. Focused Exam Lactate Level 10/27/21 04:45: Lactic Acid Level 1.44 Objective Exam Vital Signs Vital Signs Date Time Temp Pulse Resp B/P (MAP) Pulse Ox O2 Delivery O2 Flow Rate FiO2 10/28/21 18:00 116 14 77/52 100 Nasal Cannula 3.00 10/28/21 11:59 36.0 Capillary Refill : Less Than 3 Seconds General Appearance: No Apparent Distress, Chronically ill, Obese Respiratory: Lungs Clear, No Respiratory Distress Cardiovascular: No Murmur, Tachycardia Gastrointestinal: Normal Bowel Sounds, Soft, Distended Extremity: Normal Inspection, Pedal Edema Neurologic/Psychiatric: Alert, No Motor/Sensory Deficits Skin: Normal Color, Warm/Dry Results/Procedures Lab Laboratory Tests 10/28/21 05:05 Patient resulted labs reviewed. Imaging: Reviewed Imaging Report Assessment/Plan Assessment and Plan Assess & Plan/Chief Complaint Septic shock Oliguric GONZALES Hepatorenal syndrome Recent cholecystectomy Possible SBP Thrombocytopenia DIC Melena End stage liver disease Decompensated cirrhosis Poor prognosis Goals of care discussion Cultures with Enterococcus CT chest/abdomen with moderate ascites Continue Unasyn Continue fluids with Bicarb Continue pressors Continue midodrine Peritoneal catheter in place, draining IV PPI BID TeleICU following Surgery following Cardiology following Palliative care following DVT ppx: SCDs Critical Care Critically Ill Patient Diagnosis/Problems Diagnosis/Problems (1) Septic shock Status: Acute (2) DIC (disseminated intravascular coagulation) Status: Acute (3) Severe sepsis Status: Acute (4) Abdominal infection Status: Acute (5) S/P cholecystectomy Status: Chronic (6) End-stage liver disease Status: Acute (7) Poor prognosis Status: Acute (8) Hypotension Status: Acute PJ NATARAJAN MD October 28, 2021 18:55
[2021-10-28] MEDS: PANTOPRAZOLE 40 MG (PROTONIX) VIAL IV SCH (20:25)
[2021-10-29] MEDS: NOREPINEPHRINE 16 MG in NS (IVPB) 234 ML IV SCH (00:23)
[2021-10-29] MEDS: SODIUM BICARBONATE 8.4% VIAL 100 MEQ in 1/2 NS IV SOLUTION 1,000 ML IV SCH ×3 (00:24→22:39)
[2021-10-29] MEDS: VASOPRESSIN INJECTION 20 UNIT in NS (IVPB) 100 ML IV SCH ×3 (00:24→22:39)
[2021-10-29 04:33] LABS: BASOPHILS % (AUTO) 0 % (0-10); EOSINOPHILS # (AUTO) 0.1 10^3/uL (0.0-0.3); EOSINOPHILS % (AUTO) 1 % (0-10); HEMATOCRIT 25 % (40-54); HEMOGLOBIN 8.8 g/dL (13.3-17.7); LYMPHOCYTES # (AUTO) 1.3 10^3/uL (1.0-4.0); LYMPHOCYTES % (AUTO) 18 % (12-44); MEAN CORPUSCULAR HEMOGLOBIN 41 pg (25-34); MEAN CORPUSCULAR HGB CONC 35 g/dL (32-36); MEAN CORPUSCULAR VOLUME 116 fL (80-99); MEAN PLATELET VOLUME 12.2 fL (9.0-12.2); MONOCYTES % (AUTO) 14 % (0-12); NEUTROPHILS # (AUTO) 4.9 10^3/uL (1.8-7.8); NEUTROPHILS % (AUTO) 67 % (42-75); WHITE BLOOD COUNT 7.4 10^3/uL (4.3-11.0)
[2021-10-29 04:34] LABS: PLATELET COUNT 27 10^3/uL (130-400)
[2021-10-29 04:47] LABS: ALBUMIN 2.1 GM/DL (3.2-4.5); POTASSIUM 3.7 MMOL/L (3.6-5.0)
[2021-10-29 04:49] LABS: CALCIUM 7.1 MG/DL (8.5-10.1)
[2021-10-29 04:50] LABS: TOTAL PROTEIN 4.2 GM/DL (6.4-8.2)
[2021-10-29 04:51] LABS: BILIRUBIN,TOTAL 2.2 MG/DL (0.1-1.0)
[2021-10-29 04:53] LABS: PHOSPHORUS 3.5 MG/DL (2.3-4.7)
[2021-10-29 04:54] LABS: CREATININE SERUM 2.48 MG/DL (0.60-1.30)
[2021-10-29 04:56] LABS: MAGNESIUM 1.9 MG/DL (1.6-2.4)
[2021-10-29] MEDS: PANTOPRAZOLE 40 MG (PROTONIX) VIAL IV SCH ×2 (08:10→19:55)
[2021-10-29] MEDS: MIDODRINE 10 MG (PROAMATINE) TAB PO SCH ×3 (08:10→18:04)
[2021-10-29] MEDS: THIAMINE 100 MG (VITAMIN B-1) TAB PO SCH (08:10)
[2021-10-29] MEDS: FOLIC ACID 1 MG TAB PO SCH (08:10)
--- NOTE | 2021-10-29 08:55 | Tele-ICU Progress Note ---
Subjective Date Seen by a Provider: October 29, 2021 Time Seen by a Provider: 07:35 Subjective/Events-last exam This virtual visit was conducted using real time audio/video. Thank you for asking us to see this patient for sepsis. Paracentesis catheter placed 10/27/21. Copious output. S/B Hem. No further actions at this time. PE: VSS. O2 sat 96% on RA HEENT: No obvious masses, adenopathy or JVD. Chest: clear to auscultation. CV: RRR S1 S2 No murmur or added sounds. Abd: Non-tender. Bowel sounds Y. : Unremarkable. Lara Y. RN CORONARY CARE UNIT/psychiatric: Grossly intact. No obvious focal findings. Extremities: 1-2+ edema. Capillary refill < 3 seconds. Skin: unremarkable. Results: Elevated BUN 66, Creat 2.1. Decreased Hb 8.8, plts 27K., Alb 2.1. CXR: clear. Available chart/ vitals / labs / images reviewed. Video assessment done using teleICU camera, rest of exam as per RN. A/P: Critical Care: critically ill patient. Cont.Levo., SCDs, thiamine, folate, bicarb drip, midodrine. Wean Levo as norm. Hem consult w low plts: no actions at this time. Discussed with RN ANGELITO. Asked RN to reach out to eICU if any questions or concerns later. Time spent with patient/coordination of care with other health professionals (mins): 15 Sepsis Event Evaluation Height, Weight, BMI Height: 5'9.00" Weight: 179lbs. 0.0oz. [age]yo; 32.72 BMI Method: Focused Exam Lactate Level 10/27/21 04:45: Lactic Acid Level 1.44 Exam Exam Patient acknowledged, consented, and participated in this virtual visit which was conducted using real time audio/video Vital Signs Date Time Temp Pulse Resp B/P (MAP) Pulse Ox O2 Delivery O2 Flow Rate FiO2 10/29/21 08:00 97 Room Air 10/29/21 08:00 36.2 10/29/21 08:00 133 19 92/72 98 Room Air 10/29/21 07:00 108 10/29/21 07:00 105 17 96/58 100 Room Air 10/29/21 06:00 102 17 100/63 91 Room Air 10/29/21 05:00 104 18 104/69 100 Room Air 10/29/21 04:00 96 Room Air 10/29/21 04:00 104 19 97/67 100 Room Air 10/29/21 03:00 101 16 103/63 100 Nasal Cannula 2.00 10/29/21 02:00 106 15 104/71 100 Nasal Cannula 2.00 10/29/21 01:00 125 16 115/66 100 Nasal Cannula 2.00 10/29/21 01:00 106 10/29/21 00:24 78/60 10/29/21 00:00 104 19 97/67 100 Nasal Cannula 2.00 10/29/21 00:00 98 Nasal Cannula 2.00 10/28/21 23:00 101 17 99/56 100 Nasal Cannula 2.00 10/28/21 22:00 113 13 99/63 100 Nasal Cannula 2.00 10/28/21 21:00 104 17 106/71 100 Nasal Cannula 2.00 10/28/21 20:00 112 14 106/66 100 Nasal Cannula 2.00 10/28/21 20:00 100 Nasal Cannula 2.00 10/28/21 19:15 113 21 95/60 100 10/28/21 19:00 113 10/28/21 19:00 36.7 Nasal Cannula 2.00 10/28/21 19:00 114 18 100/66 100 10/28/21 18:00 116 14 77/52 100 Nasal Cannula 3.00 10/28/21 17:00 108 14 99/62 100 Nasal Cannula 3.00 10/28/21 16:00 110 13 90/63 100 Nasal Cannula 3.00 10/28/21 15:57 100 Nasal Cannula 3.00 10/28/21 15:00 111 15 90/65 100 Nasal Cannula 3.00 10/28/21 14:00 99/65 10/28/21 14:00 114 12 99/65 100 Nasal Cannula 3.00 10/28/21 13:00 115 13 98/61 100 Nasal Cannula 3.00 10/28/21 13:00 119 10/28/21 12:00 118 18 91/63 100 Nasal Cannula 3.00 10/28/21 11:59 36.0 10/28/21 11:30 100 Nasal Cannula 3.00 10/28/21 11:00 115 14 98/61 100 Nasal Cannula 3.00 10/28/21 10:00 121 16 90/61 100 Nasal Cannula 3.00 10/28/21 09:00 125 27 86/56 100 Nasal Cannula 3.00 I & O 10/29/21 07:00 Intake Total 550 ml Output Total 4940 ml Balance -4390 ml Height & Weight Height: 5'9.00" Weight: 179lbs. 0.0oz. 81.440806up; 32.72 BMI Method: General Appearance: No Apparent Distress, Chronically ill, Obese HEENT: PERRL/EOMI Neck: Full Range of Motion Respiratory: Lungs Clear, No Respiratory Distress Cardiovascular: No Murmur, Tachycardia Capillary Refill: Less Than 3 Seconds Peripheral Pulses: 2+ Radial Pulses (R), 2+ Radial Pulses (L) Gastrointestinal: normal bowel sounds, soft, distended Extremity: Normal Inspection, Pedal Edema Neurologic/Psychiatric: Alert, No Motor/Sensory Deficits Skin: Normal Color, Warm/Dry Lymphatic: No Adenopathy Results Lab Laboratory Tests 10/28/21 05:05 10/29/21 03:55 Assessment/Plan Assessment/Plan See free text. Critical Care: Critically Ill Patient JOHN BRISENO MD October 29, 2021 08:55
--- NOTE | 2021-10-29 09:11 | Progress Note - Hospitalist ---
Subjective HPI/CC On Admission Date Seen by Provider: October 29, 2021 Time Seen by Provider: 09:05 Patient is 81-year-old male past medical history of cirrhosis, hypertension, and recent cholecystectomy who presented to the emergency room due to drainage from surgical wounds and low blood pressure. He is a very poor historian but per the ER note he also complained of nausea and decreased appetite. He told me his surgery was 2 years ago though records reveal it was much more recent than that (10/04). He does not complain of any of this to me and states he is feeling very well. When asked why he came to the hospital then if he was feeling well he states because his sister is a nurse. Reviewing records reveals he was seen in the emergency department last week for drainage from surgical incisions and a suture was placed. He saw Dr. ALBERT's nurse practitioner on October 17 for removal. Since then he has continued to have drainage. He also continues to drink 1-2 glasses of wine a day. Subjective/Events-last exam Pt reports feeling well. No complaints. About to go to the bathroom. No family at bedside. Focused Exam Lactate Level 10/27/21 04:45: Lactic Acid Level 1.44 Objective Exam Vital Signs Vital Signs Date Time Temp Pulse Resp B/P (MAP) Pulse Ox O2 Delivery O2 Flow Rate FiO2 10/29/21 08:00 97 Room Air 10/29/21 08:00 36.2 10/29/21 08:00 133 19 92/72 10/29/21 03:00 2.00 Capillary Refill : Less Than 3 Seconds General Appearance: No Apparent Distress Respiratory: Lungs Clear, No Respiratory Distress Cardiovascular: No Murmur, Tachycardia Neurologic/Psychiatric: Alert, Oriented x3 (to major details, confused by some of the medical devices attached to help) Results/Procedures Lab Laboratory Tests 10/29/21 03:55 Patient resulted labs reviewed. Imaging: Reviewed Imaging Report Assessment/Plan Assessment and Plan Assess & Plan/Chief Complaint Septic shock Oliguric GONZALES Hepatorenal syndrome Recent cholecystectomy Possible SBP Thrombocytopenia DIC Melena End stage liver disease Decompensated cirrhosis Poor prognosis Goals of care discussion Cultures with Enterococcus CT chest/abdomen with moderate ascites- Surgery placed drain Continue Unasyn per c/s Continue fluids with Bicarb Continue pressors- still on 2 Continue midodrine Peritoneal catheter in place, draining IV PPI BID TeleICU following Surgery following Cardiology following Palliative care following DVT ppx: SCDs duet to thrombocytopenia Critical Care Critically Ill Patient MILADIS COLLINS MD October 29, 2021 09:11
--- NOTE | 2021-10-29 09:47 | Physical Therapy Daily Note ---
PT Daily Note-Current Subjective Patient on commode. PCT present Transfers SCALE: Activities may be completed with or without assistive devices. 7-Ariwmthslk-uuijxet completes the activity by him/herself with no assistance from a helper. 5-Set-up or Clean-up Assistance-helper sets up or cleans up; patient completes activity. [place] assists only prior to or following the activity. 4-Supervision or Touching Assistance-helper provides verbal cues and/or touching/steadying and/or contact guard assistance as patient completes activity. Assistance may be provided throughout the activity or intermittently. 3-Partial/Moderate Assistance-helper does LESS THAN HALF the effort. [place] lift s, holds or supports trunk or limbs, but provides less than half the effort. 2-Substantial/Maximal Assistance-helper does MORE THAN HALF the effort. [place] lifts or holds trunk or limbs and provides more than half the effort. 2-Jpvnwxlgf-veozrm does ALL the effort. Patient does none of the effort to complete the activity. Or, the assistance of 2 or more helpers is required for the patient to complete the activity. If activity was not attempted, code reason: 7-Patient Refused. 9-Not Applicable-not attempted and the patient did not perform the activity before the current illness, exacerbation or injury. 10-Not Attempted due to Environmental Limitations-(lack of equipment, weather restraints, etc.). 88-Not Attempted due to Medical Conditions or Safety Concerns. Lying to Sitting/Side of Bed(Q: 2 Sit to Stand (QC): 2 Chair/Njt-zb-Yfwng Xfer(QC): 2 (SPT commode to bed) Assessment Patient impulsive to sit with transfer sitting on EOB. Max assist with all mobility on this date. PT Mall Manager Goals Correction Goals PT Correction Goals Time Frame: November 03, 2021 Roll Left & Right (QC): 6 Sit to Lying (QC): 6 Lying-Sitting on Side/Bed(QC): 6 Sit to Stand (QC): 6 Chair/Ibn-vo-Aziwv Xfer(QC): 6 Toilet Transfer (QC): 6 Walk 10 feet (QC): 6 Walk 50ft with 2 Turns (QC): 6 Walk 150 ft (QC): 6 PT Plan Treatment/Plan Treatment Plan: Continue Plan of Care Treatment Plan: Bed Mobility, Education, Functional Activity Ran, Functional Strength, Gait, Safety, Therapeutic Exercise, Transfers Treatment Duration: November 03, 2021 Frequency: 6 times per week Estimated Hrs Per Day: .25 hour per day Patient and/or Family Agrees t: Yes Time/GCodes Time In: 755 Time Out: 804 Total Billed Treatment Time: 9 Total Billed Treatment 1 visit FA 9 min DIANA CHAIREZ PT October 29, 2021 09:47
--- NOTE | 2021-10-29 15:38 | Oncology Consultation ---
Visit Information Visit Information Date of Admission Oct 20, 2021 at 17:30 Attending Physician Rosalva Murguia MD Admitting Physician No,Local Physician Chief Complaint Thrombocytopenia and anemia in the setting of liver cirrhosis, liver failure. Interval History This is a 81 year old white man with long h/o alcohol usage and liver cirrhosis, s/p cholecystectomy 09/2021 and admitted to ICU due to hypotensive currently on two pressors, confusion. He was noticed to have plt in the 20s range. Hb slowly trending from 10 to 8 over last 3 days. He is also somewhat confused. No pain. I consulted the patient on: 10/29/21 15:33 Time Seen by Provider: 15:38 Review of Systems Constitutional: see HPI Health Status Allergies Coded Allergies: No Known Drug Allergies (Unverified , 10/04/21) Home Medications Glutamine (l-Glutamine) 500 Mg Capsule, 500 MG PO DAILY, (Reported) Metoprolol Succinate (Metoprolol Succinate) 25 Mg Tab.er.24h, 25 MG PO DAILY, (Reported) Milk Thistle (Milk Thistle) 175 Mg Tablet, 375 MG PO DAILY, (Reported) Spironolactone (Spironolactone) 50 Mg Tablet, 50 MG PO DAILY, (Reported) Sulfamethoxazole/Trimethoprim (Bactrim Ds Tablet) 1 Each Tablet, 1 EA PO BID, (Reported) FILLED 10-17-2021 #20/10 DAY SUPPLY Vitamin B Complex (Vitamin B Complex) 1 Each Capsule, 1 EACH PO DAILY, (Reported) MQR-Qabpou-Adedya Hx Patient Social History Marrital Status: Smoking Status: Former Smoker (Smoked 0.75 PPD for 18 years) Former smoker/When Quit: Aug 28, 1989 Type Used: Cigars 2nd Hand Smoke Exposure: No Recent Hopitalizations: No Alcohol Use?: Yes Have you traveled recently?: No Immunizations Up To Date Date of Influenza Vaccine: Apr 11, 2021 Family Medical History Significant Family History: No Pertinent Family Hx Physical Exam Vital Signs Vital Signs - First Documented 10/23/21 10/23/21 10/26/21 00:00 01:00 06:10 Temp 36.2 Pulse 120 Resp 8 B/P (MAP) 93/68 Pulse Ox 96 O2 Delivery Room Air O2 Flow Rate 2.00 Capillary Refill : Less Than 3 Seconds Height, Weight, BMI Height: 5'9.00" Weight: 179lbs. 0.0oz. 81.810251fe; 32.72 BMI Method: General Appearance: No Apparent Distress, Other (comfortably sleeping) Respiratory: No Accessory Muscle Use, No Respiratory Distress Data Review Labs Laboratory Tests 10/29/21 03:55 Laboratory Tests 10/26/21 17:38: Glucometer 150H 10/27/21 04:45: White Blood Count 16.0H, Red Blood Count 2.40L, Hemoglobin 10.1L, Hematocrit 28L , Mean Corpuscular Volume 118H, Mean Corpuscular Hemoglobin 42H, Platelet Count 30*L, Lymphocytes (%) (Auto) 11L, Monocytes (%) (Auto) 14H, Neutrophils # (Auto) 11.9H, Monocytes # (Auto) 2.2H, Chloride Level 111H, Carbon Dioxide Level 16L, Blood Urea Nitrogen 45H, Creatinine 2.34H, Glucose Level 161H, Calcium Level 7.2L, Total Bilirubin 2.5H, Aspartate Amino Transf (AST/SGOT) 79H, Alanine Aminotransferase (ALT/SGPT) 64H, Total Protein 4.6L, Albumin 2.2L 10/27/21 10:32: Glucometer 145H 10/27/21 11:41: Glucometer 155H 10/27/21 17:55: Glucometer 162H 10/28/21 05:05: Red Blood Count 2.17L, Hemoglobin 9.0L, Hematocrit 26L, Mean Corpuscular Volume 118H, Mean Corpuscular Hemoglobin 42H, Red Cell Distribution Width 14.6H, Platelet Count 28*L, Monocytes (%) (Auto) 13H, Monocytes # (Auto) 1.3H, Chloride Level 109H, Carbon Dioxide Level 20L, Blood Urea Nitrogen 62H, Creatinine 2.70H, Glucose Level 151H, Calcium Level 7.2L, Total Bilirubin 2.1H, Aspartate Amino Transf (AST/SGOT) 71H, Total Protein 4.3L, Albumin 2.0L 10/28/21 11:30: Glucometer 176H 10/28/21 17:16: Glucometer 156H 10/29/21 00:31: Glucometer 138H 10/29/21 03:55: Red Blood Count 2.14L, Hemoglobin 8.8L, Hematocrit 25L, Mean Corpuscular Volume 116H, Mean Corpuscular Hemoglobin 41H, Red Cell Distribution Width 14.6H, Platelet Count 27*L, Monocytes (%) (Auto) 14H, Blood Urea Nitrogen 66H, Creatinine 2.48H, Glucose Level 133H, Calcium Level 7.1L, Total Bilirubin 2.2H, Aspartate Amino Transf (AST/SGOT) 71H, Total Protein 4.2L, Albumin 2.1L 10/29/21 12:22: Glucometer 178H Impression & Plan Impression & Plan IMP: 1. custodial alcohol usage, liver cirrhosis, liver failure abnormal coagulopathy. 2. Hepatorenal syndrome. Cr 2.8 3. Thrombocytopenia due to liver failure 4. Anemia due to liver hepatorenal syndrome and possible GI bleeding. 5. Prognosis is guarded. REC: 1. Unfortunately, pt is in his end-stage of liver failure. I would not have anything to offer except transfusion support if needed. 2. I would suggest to discuss hospice and/or comfort care. Thank you for the consultation. FRANKLIN FRIEDMAN MD October 29, 2021 15:38
--- NOTE | 2021-10-29 19:15 | Progress Note ---
Subjective Date Seen by a Provider: October 29, 2021 Time Seen by a Provider: 19:00 Subjective/Events-last exam very somnolent today. still having copious peritoneal drain output. labs look like DIC picture. Focused Exam Lactate Level 10/27/21 04:45: Lactic Acid Level 1.44 Objective Exam Vital Signs Date Time Temp Pulse Resp B/P (MAP) Pulse Ox O2 Delivery O2 Flow Rate FiO2 10/29/21 18:00 116 16 96/59 98 Room Air 10/29/21 17:00 116 24 92/60 99 Room Air 10/29/21 16:00 97 Room Air 10/29/21 16:00 107 15 94/55 100 Room Air 10/29/21 15:56 36.3 10/29/21 15:00 115 18 125/89 100 Room Air 10/29/21 14:00 114 23 93/54 100 Room Air 10/29/21 13:00 113 10/29/21 13:00 107 15 107/62 97 Room Air 10/29/21 12:00 97 Room Air 10/29/21 12:00 111 14 98/55 97 Room Air 10/29/21 12:00 36.3 10/29/21 11:47 114 85/55 10/29/21 11:00 110 14 109/63 99 Room Air 10/29/21 10:00 103 17 92/62 100 Room Air 10/29/21 09:00 106 17 98/59 98 Room Air 10/29/21 08:00 97 Room Air 10/29/21 08:00 36.2 10/29/21 08:00 133 19 109/69 98 Room Air 10/29/21 07:00 108 10/29/21 07:00 105 17 96/58 100 Room Air 10/29/21 06:00 102 17 100/63 91 Room Air 10/29/21 05:00 104 18 104/69 100 Room Air 10/29/21 04:00 96 Room Air 10/29/21 04:00 104 19 97/67 100 Room Air 10/29/21 03:00 101 16 103/63 100 Nasal Cannula 2.00 10/29/21 02:00 106 15 104/71 100 Nasal Cannula 2.00 10/29/21 01:00 125 16 115/66 100 Nasal Cannula 2.00 10/29/21 01:00 106 10/29/21 00:24 78/60 10/29/21 00:00 104 19 97/67 100 Nasal Cannula 2.00 10/29/21 00:00 98 Nasal Cannula 2.00 10/28/21 23:00 101 17 99/56 100 Nasal Cannula 2.00 10/28/21 22:00 113 13 99/63 100 Nasal Cannula 2.00 10/28/21 21:00 104 17 106/71 100 Nasal Cannula 2.00 10/28/21 20:00 112 14 106/66 100 Nasal Cannula 2.00 10/28/21 20:00 100 Nasal Cannula 2.00 10/28/21 19:15 113 21 95/60 100 I & O 10/29/21 07:00 Intake Total 550 ml Output Total 4940 ml Balance -4390 ml Capillary Refill : Less Than 3 Seconds General Appearance: Chronically ill Neck: Non Tender Respiratory: Decreased Breath Sounds Cardiovascular: Tachycardia Gastrointestinal: soft, distended Extremity: Normal Capillary Refill Neurologic/Psychiatric: Disoriented Skin: Normal Color Lymphatic: No Adenopathy Results Lab Laboratory Tests 10/29/21 00:31: Glucometer 138H 10/29/21 03:55: White Blood Count 7.4, Red Blood Count 2.14L, Hemoglobin 8.8L, Hematocrit 25L, Mean Corpuscular Volume 116H, Mean Corpuscular Hemoglobin 41H, Mean Corpuscular Hemoglobin Concent 35, Red Cell Distribution Width 14.6H, Platelet Count 27*L, Mean Platelet Volume 12.2, Immature Granulocyte % (Auto) 0, Neutrophils (%) (Auto) 67, Lymphocytes (%) (Auto) 18, Monocytes (%) (Auto) 14H, Eosinophils (%) (Auto) 1, Basophils (%) (Auto) 0, Neutrophils # (Auto) 4.9, Lymphocytes # (Auto) 1.3, Monocytes # (Auto) 1.0, Eosinophils # (Auto) 0.1, Basophils # (Auto) 0.0, Immature Granulocyte # (Auto) 0.0, Sodium Level 139, Potassium Level 3.7, Chloride Level 104, Carbon Dioxide Level 23, Anion Gap 12, Blood Urea Nitrogen 66H, Creatinine 2.48H, Estimat Glomerular Filtration Rate 26, BUN/Creatinine Ratio 27, Glucose Level 133H, Calcium Level 7.1L, Corrected Calcium 8.6, Phosphorus Level 3.5, Magnesium Level 1.9, Total Bilirubin 2.2H, Aspartate Amino Transf (AST/SGOT) 71H, Alanine Aminotransferase (ALT/SGPT) 50, Alkaline Phosphatase 103, Total Protein 4.2L, Albumin 2.1L 10/29/21 12:22: Glucometer 178H 10/29/21 17:49: Glucometer 147H Microbiology 10/20/21 MRSA Screen - Final, Complete MRSA not isolated 10/20/21 Gram Stain - Final, Complete 10/20/21 Wound Culture - Final, Complete Mixed Bacterial Layla Enterococcus species 10/20/21 Blood Culture - Final, Complete No growth Assessment/Plan Assessment/Plan Assess & Plan/Chief Complaint liver cirrhosis s/p lap cholecystectomy 10/04/21. likely end stage liver dz. will proceed with placement interrupted figure of 8 sutures across umbilical wound. low protein diet. Na and fluid restriction. cont spironolactone. continues to be hypotensive and tachycardic. will get CT chest/abd/pelvis. will proceed with paracentesis. MAMTA ALBERT MD October 29, 2021 19:15
[2021-10-29] MEDS ORDERED: NS (IVPB) 100 ML ONE (22:06)
[2021-10-30 04:25] LABS: BASOPHILS % (AUTO) 0 % (0-10); EOSINOPHILS # (AUTO) 0.1 10^3/uL (0.0-0.3); EOSINOPHILS % (AUTO) 1 % (0-10); HEMATOCRIT 25 % (40-54); HEMOGLOBIN 8.9 g/dL (13.3-17.7); LYMPHOCYTES # (AUTO) 1.6 10^3/uL (1.0-4.0); LYMPHOCYTES % (AUTO) 20 % (12-44); MEAN CORPUSCULAR HEMOGLOBIN 42 pg (25-34); MEAN CORPUSCULAR HGB CONC 36 g/dL (32-36); MEAN CORPUSCULAR VOLUME 117 fL (80-99); MEAN PLATELET VOLUME 12.6 fL (9.0-12.2); MONOCYTES # (AUTO) 1.2 10^3/uL (0.0-1.0); MONOCYTES % (AUTO) 14 % (0-12); NEUTROPHILS # (AUTO) 5.3 10^3/uL (1.8-7.8); NEUTROPHILS % (AUTO) 65 % (42-75); WHITE BLOOD COUNT 8.2 10^3/uL (4.3-11.0)
[2021-10-30 04:27] LABS: PLATELET COUNT 28 10^3/uL (130-400)
[2021-10-30 04:36] LABS: ALBUMIN 1.9 GM/DL (3.2-4.5); POTASSIUM 3.4 MMOL/L (3.6-5.0)
[2021-10-30 04:39] LABS: TOTAL PROTEIN 4.4 GM/DL (6.4-8.2)
[2021-10-30 04:40] LABS: BILIRUBIN,TOTAL 2.2 MG/DL (0.1-1.0)
[2021-10-30 04:42] LABS: CREATININE SERUM 2.28 MG/DL (0.60-1.30); PHOSPHORUS 4.1 MG/DL (2.3-4.7)
[2021-10-30] MEDS ORDERED: KCL 10 MEQ TAB (MICRO K) PO NR (07:54)
[2021-10-30] MEDS: THIAMINE 100 MG (VITAMIN B-1) TAB PO SCH (08:10)
[2021-10-30] MEDS: MIDODRINE 10 MG (PROAMATINE) TAB PO SCH ×3 (08:10→18:40)
[2021-10-30] MEDS: PANTOPRAZOLE 40 MG (PROTONIX) VIAL IV SCH ×2 (08:10→21:23)
[2021-10-30] MEDS: FOLIC ACID 1 MG TAB PO SCH (08:10)
--- NOTE | 2021-10-30 08:43 | Progress Note - Hospitalist ---
Subjective HPI/CC On Admission Date Seen by Provider: October 30, 2021 Time Seen by Provider: 08:41 Patient is 81-year-old male past medical history of cirrhosis, hypertension, and recent cholecystectomy who presented to the emergency room due to drainage from surgical wounds and low blood pressure. He is a very poor historian but per the ER note he also complained of nausea and decreased appetite. He told me his surgery was 2 years ago though records reveal it was much more recent than that (10/04). He does not complain of any of this to me and states he is feeling very well. When asked why he came to the hospital then if he was feeling well he states because his sister is a nurse. Reviewing records reveals he was seen in the emergency department last week for drainage from surgical incisions and a suture was placed. He saw Dr. ALBERT's nurse practitioner on October 17 for removal. Since then he has continued to have drainage. He also continues to drink 1-2 glasses of wine a day. Subjective/Events-last exam Pt reports doing well. No complaints. Being moved up in bed by nurse and certified nursing attendant. No family at bedside. When asked if he needed anything he asked for a glass of wine. Objective Exam Vital Signs Vital Signs Date Time Temp Pulse Resp B/P (MAP) Pulse Ox O2 Delivery O2 Flow Rate FiO2 10/30/21 08:00 97 Room Air 10/30/21 07:27 36.2 10/30/21 07:00 102 10/30/21 06:00 15 85/54 10/29/21 03:00 2.00 Capillary Refill : Less Than 3 Seconds General Appearance: No Apparent Distress, Chronically ill, Thin Respiratory: Lungs Clear, No Respiratory Distress Cardiovascular: Regular Rate, Rhythm, No Murmur Gastrointestinal: Normal Bowel Sounds, Distended Neurologic/Psychiatric: Alert, Oriented x3 (to major details, pleasantly confused otherwise) Results/Procedures Lab Laboratory Tests 10/30/21 04:05 Patient resulted labs reviewed. Imaging: Reviewed Imaging Report Assessment/Plan Assessment and Plan Assess & Plan/Chief Complaint Septic shock Oliguric GONZALES Hepatorenal syndrome Recent cholecystectomy Possible SBP Thrombocytopenia DIC Melena End stage liver disease Decompensated cirrhosis Poor prognosis Goals of care discussion Cultures with Enterococcus CT chest/abdomen with moderate ascites- Surgery placed drain over the weekend Completed Unasyn per c/s Continue IVF with bicarb Continue pressors- still on 2, on oral midodrine as well- will discuss with pharmacy and see if we can increase it further Peritoneal catheter in place, draining IV PPI BID TeleICU following Surgery following Cardiology following Palliative care following- would be a good candidate for hospice though family not agreeable at this time DVT ppx: SCDs duet to thrombocytopenia Critical Care Critically Ill Patient MILADIS COLLINS MD October 30, 2021 08:43
--- NOTE | 2021-10-30 08:44 | Progress Note - Cardiology ---
Cardiology SOAP Progress Note Subjective: In bed Denies c/o CP or SOB States he wants to go home Objective: I&O/Vital Signs 10/30/21 10/30/21 10/30/21 10/30/21 21:00 21:42 22:00 23:00 Pulse 105 111 105 106 Resp 17 14 15 B/P (MAP) 92/61 100/62 86/54 89/57 Pulse Ox 94 99 96 O2 Delivery Room Air Room Air Room Air 10/31/21 10/31/21 10/31/21 10/31/21 00:00 00:00 01:00 01:00 Pulse 98 101 101 Resp 20 17 B/P (MAP) 96/61 86/56 Pulse Ox 98 97 985 O2 Delivery Room Air Room Air Room Air 10/31/21 10/31/21 10/31/21 10/31/21 02:00 03:00 04:00 04:00 Pulse 103 109 103 Resp 13 20 16 B/P (MAP) 93/72 90/55 90/53 Pulse Ox 96 97 93 100 O2 Delivery Room Air Room Air Room Air Room Air 10/31/21 10/31/21 10/31/21 10/31/21 04:15 05:00 06:00 07:00 Temp 36.3 Pulse 109 105 104 Resp 20 20 B/P (MAP) 103/60 108/68 Pulse Ox 96 98 O2 Delivery Room Air Room Air 10/31/21 10/31/21 07:08 07:58 Temp 36.6 Pulse 105 B/P (MAP) 97/65 10/31/21 00:00 Intake Total 600 ml Output Total 1600 ml Balance -1000 ml Weight (Pounds): 179 Weight (Ounces): 0.0 Weight (Calculated Kilograms): 81.803530 Constitutional: AAO x 3, well-developed, well-nourished Respiratory: other (diminished air entry especially at the bases) Cardiovascular: regular rate-rhythm, S1 and S2, systolic murmur (soft ABENA at card base) Gastrointestional: distended, other (peritoneal drain in place) Extremities: swelling (mod edema of all extremities) Neurologic/Psychiatric: oriented x 3, other (moves all limbs) Skin: No rash on exposed areas, No ulcerations on exposed areas Results/Procedures: Labs Laboratory Tests 10/30/21 11:24: Glucometer 151H 10/30/21 18:39: Glucometer 176H 10/31/21 00:25: Glucometer 176H 10/31/21 04:41: White Blood Count 10.3, Red Blood Count 2.29L, Hemoglobin 9.6L, Hematocrit 27L, Mean Corpuscular Volume 116H, Mean Corpuscular Hemoglobin 42H, Mean Corpuscular Hemoglobin Concent 36, Red Cell Distribution Width 14.7H, Platelet Count 38*L, Mean Platelet Volume 12.4H, Immature Granulocyte % (Auto) 1, Neutrophils (%) (Auto) 68, Lymphocytes (%) (Auto) 15, Monocytes (%) (Auto) 15H, Eosinophils (%) (Auto) 1, Basophils (%) (Auto) 0, Neutrophils # (Auto) 7.1, Lymphocytes # (Auto) 1.6, Monocytes # (Auto) 1.5H, Eosinophils # (Auto) 0.1, Basophils # (Auto) 0.0, Immature Granulocyte # (Auto) 0.1, Percent Immature Platelet Fraction 9.2H, Sodium Level 138, Potassium Level 3.1L, Chloride Level 100, Carbon Dioxide Level 26, Anion Gap 12, Blood Urea Nitrogen 65H, Creatinine 1.91H, Estimat Glomerular Filtration Rate 35, BUN/Creatinine Ratio 34, Glucose Level 142H, Calcium Level 7.3L, Corrected Calcium 8.9, Phosphorus Level 3.9, Magnesium Level 1.9, Total Bilirubin 2.4H, Aspartate Amino Transf (AST/SGOT) 83H, Alanine Aminotransferase (ALT/SGPT) 50, Alkaline Phosphatase 99, Total Protein 4.8L, Albumin 2.0L Microbiology 10/20/21 MRSA Screen - Final, Complete MRSA not isolated 10/20/21 Gram Stain - Final, Complete 10/20/21 Wound Culture - Final, Complete Mixed Bacterial Layla Enterococcus species 10/20/21 Blood Culture - Final, Complete No growth A/P: Assessment: Acute on chronic hepatic failure, complicated by the following: * Sepsis and septic shock * Probable peritonitis following recent cholecystectomy - peritoneal drain in place * Generalized anasarca likely due to hypoproteinemia * 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 Normal global LV systolic function with an LVEF of approx 60%. Normal LVEDP. No significant MR. 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
--- NOTE | 2021-10-30 09:23 | Tele-ICU Progress Note ---
Subjective Date Seen by a Provider: October 30, 2021 Time Seen by a Provider: 08:15 Subjective/Events-last exam This virtual visit was conducted using real time audio/video. Thank you for asking us to see this patient for sepsis. Paracentesis catheter placed 10/27/21. Copious output. S/B Hem. Palliative consult recommended. PE: VSS. O2 sat 96% on RA HEENT: No obvious masses, adenopathy or JVD. Chest: clear to auscultation. CV: RRR S1 S2 No murmur or added sounds. Abd: Non-tender. Bowel sounds Y. : Unremarkable. Lara Y. 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 No obvious focal findings. Extremities: 1-2+ edema. Capillary refill < 3 seconds. Skin: unremarkable. Results: Elevated BUN 70, Creat 2.28. Decreased Hb 8.4, plts 28K., Alb 1.9. CXR: clear. Available chart/ vitals / labs / images reviewed. Video assessment done using teleICU camera, rest of exam as per RN. A/P: Critical Care: critically ill patient. Cont.pressors., SCDs, thiamine, folate, bicarb drip, midodrine. Wean pressors as norm. Hem consult w low plts: Palliative care recommended. Discussed with RN ANGELITO. Asked RN to reach out to eICU if any questions or concerns later. Time spent with patient/coordination of care with other health professionals (sc ns): 15 Sepsis Event Evaluation Height, Weight, BMI Height: 5'9.00" Weight: 179lbs. 0.0oz. 81.853764zi; 32.72 BMI Method: Exam Exam Patient acknowledged, consented, and participated in this virtual visit which was conducted using real time audio/video Vital Signs Date Time Temp Pulse Resp B/P (MAP) Pulse Ox O2 Delivery O2 Flow Rate FiO2 10/30/21 09:00 116 16 100/65 99 Room Air 10/30/21 08:00 102 17 94/55 97 Room Air 10/30/21 08:00 97 Room Air 10/30/21 07:27 36.2 10/30/21 07:00 102 10/30/21 07:00 102 16 89/56 95 Room Air 10/30/21 06:00 98 15 85/54 94 Room Air 10/30/21 05:00 98 15 92/55 96 Room Air 10/30/21 04:00 112 12 93/58 100 Room Air 10/30/21 04:00 98 Room Air 10/30/21 03:00 100 17 98/55 96 Room Air 10/30/21 02:00 99 17 88/52 100 Room Air 10/30/21 01:00 107 17 95/56 99 Room Air 10/30/21 01:00 107 10/30/21 00:00 101 19 92/61 98 Room Air 10/30/21 00:00 100 Room Air 10/29/21 23:00 105 19 94/62 91 Room Air 10/29/21 22:44 36.5 10/29/21 22:39 103/62 10/29/21 22:00 112 18 97/60 100 Room Air 10/29/21 21:00 116 19 99/64 100 Room Air 10/29/21 20:00 100 Room Air 10/29/21 20:00 36.9 10/29/21 20:00 116 25 94/65 95 Room Air 10/29/21 19:00 116 30 91/61 100 Room Air 10/29/21 19:00 116 10/29/21 18:00 116 16 96/59 98 Room Air 10/29/21 17:00 116 24 92/60 99 Room Air 10/29/21 16:00 97 Room Air 10/29/21 16:00 107 15 94/55 100 Room Air 10/29/21 15:56 36.3 10/29/21 15:00 115 18 125/89 100 Room Air 10/29/21 14:00 114 23 93/54 100 Room Air 10/29/21 13:00 113 10/29/21 13:00 107 15 107/62 97 Room Air 10/29/21 12:00 97 Room Air 10/29/21 12:00 111 14 98/55 97 Room Air 10/29/21 12:00 36.3 10/29/21 11:47 114 85/55 10/29/21 11:00 110 14 109/63 99 Room Air 10/29/21 10:00 103 17 92/62 100 Room Air I & O 10/30/21 07:00 Intake Total 730 ml Output Total 5850 ml Balance -5120 ml Height & Weight Height: 5'9.00" Weight: 179lbs. 0.0oz. 81.264286gz; 32.72 BMI Method: General Appearance: No Apparent Distress, Chronically ill, Thin HEENT: PERRL/EOMI Neck: Non Tender Respiratory: Lungs Clear, No Respiratory Distress Cardiovascular: Regular Rate, Rhythm, No Murmur Capillary Refill: Less Than 3 Seconds Peripheral Pulses: 2+ Radial Pulses (R), 2+ Radial Pulses (L) Gastrointestinal: soft, distended Extremity: Normal Capillary Refill Neurologic/Psychiatric: Alert, Oriented x3 (to major details, pleasantly confused otherwise) Skin: Normal Color Lymphatic: No Adenopathy Results Lab Laboratory Tests 10/29/21 03:55 10/30/21 04:05 Assessment/Plan Assessment/Plan See free text. Critical Care: Critically Ill Patient JOHN BRISENO MD October 30, 2021 09:22
[2021-10-30] MEDS: SODIUM BICARBONATE 8.4% VIAL 100 MEQ in 1/2 NS IV SOLUTION 1,000 ML IV SCH ×2 (10:33→22:44)
[2021-10-30] MEDS: VASOPRESSIN INJECTION 20 UNIT in NS (IVPB) 100 ML IV SCH ×2 (10:33→21:42)
--- NOTE | 2021-10-30 11:17 | Physical Therapy Daily Note ---
PT Daily Note-Current Subjective Patient is very confused stating,"I'm going home today. My should be here to get me soon." Mental Status Patient Orientation: Confused Attachments: Drains, Lara Catheter, IV Transfers SCALE: Activities may be completed with or without assistive devices. 2-Khfzozohpp-yustexo completes the activity by him/herself with no assistance from a helper. 5-Set-up or Clean-up Assistance-helper sets up or cleans up; patient completes activity. [place] assists only prior to or following the activity. 4-Supervision or Touching Assistance-helper provides verbal cues and/or touching/steadying and/or contact guard assistance as patient completes activity. Assistance may be provided throughout the activity or intermittently. 3-Partial/Moderate Assistance-helper does LESS THAN HALF the effort. [place] lifts, holds or supports trunk or limbs, but provides less than half the effort. 2-Substantial/Maximal Assistance-helper does MORE THAN HALF the effort. [place] lifts or holds trunk or limbs and provides more than half the effort. 7-Ludindgca-kqntbc does ALL the effort. Patient does none of the effort to complete the activity. Or, the assistance of 2 or more helpers is required for the patient to complete the activity. If activity was not attempted, code reason: 7-Patient Refused. 9-Not Applicable-not attempted and the patient did not perform the activity b efore the current illness, exacerbation or injury. 10-Not Attempted due to Environmental Limitations-(lack of equipment, weather restraints, etc.). 88-Not Attempted due to Medical Conditions or Safety Concerns. Roll Left & Right (QC): 3 patient incontinent BM requiring dependent assist to cleanse and change bedding and gown Assessment Patient tolerated minimal activity and declined EOB or OOB activity after rolling activity. Will attempt to increase activity this week. PT Snf Goals Track Grinder Goals PT Track Grinder Goals Time Frame: November 03, 2021 Roll Left & Right (QC): 6 Sit to Lying (QC): 6 Lying-Sitting on Side/Bed(QC): 6 Sit to Stand (QC): 6 Chair/Dbm-bc-Jyxzz Xfer(QC): 6 Toilet Transfer (QC): 6 Walk 10 feet (QC): 6 Walk 50ft with 2 Turns (QC): 6 Walk 150 ft (QC): 6 PT Plan Treatment/Plan Treatment Plan: Continue Plan of Care Treatment Plan: Bed Mobility, Education, Functional Activity Ran, Functional Strength, Gait, Safety, Therapeutic Exercise, Transfers Treatment Duration: November 03, 2021 Frequency: 6 times per week Estimated Hrs Per Day: .25 hour per day Patient and/or Family Agrees t: Yes Time/GCodes Time In: 1015 Time Out: 1031 Total Billed Treatment Time: 16 Total Billed Treatment 1 visit FA 16 min DIANA CHAIREZ PT October 30, 2021 11:17
[2021-10-30] MEDS: NOREPINEPHRINE 16 MG in NS (IVPB) 234 ML IV SCH (16:35)
--- NOTE | 2021-10-30 16:56 | Progress Note ---
Subjective Date Seen by a Provider: October 30, 2021 Time Seen by a Provider: 13:00 Subjective/Events-last exam clinical status unchanged. awake and alert however confused. Objective Exam Vital Signs Date Time Temp Pulse Resp B/P (MAP) Pulse Ox O2 Delivery O2 Flow Rate FiO2 10/30/21 16:00 36.0 10/30/21 16:00 107 17 103/62 100 Room Air 10/30/21 16:00 97 Room Air 10/30/21 15:00 102 14 101/62 100 Room Air 10/30/21 14:00 114 23 128/70 99 Room Air 10/30/21 13:00 105 13 106/65 100 Room Air 10/30/21 13:00 104 10/30/21 12:00 105 18 96/61 96 Room Air 10/30/21 11:57 97 Room Air 10/30/21 11:37 36.2 10/30/21 11:00 106 10 95/60 100 Room Air 10/30/21 10:33 111 109/62 10/30/21 10:00 110 24 97/64 100 Room Air 10/30/21 09:00 116 16 100/65 99 Room Air 10/30/21 08:00 102 17 94/55 97 Room Air 10/30/21 08:00 97 Room Air 10/30/21 07:27 36.2 10/30/21 07:00 102 10/30/21 07:00 102 16 89/56 95 Room Air 10/30/21 06:00 98 15 85/54 94 Room Air 10/30/21 05:00 98 15 92/55 96 Room Air 10/30/21 04:00 112 12 93/58 100 Room Air 10/30/21 04:00 98 Room Air 10/30/21 03:00 100 17 98/55 96 Room Air 10/30/21 02:00 99 17 88/52 100 Room Air 10/30/21 01:00 107 17 95/56 99 Room Air 10/30/21 01:00 107 10/30/21 00:00 101 19 92/61 98 Room Air 10/30/21 00:00 100 Room Air 10/29/21 23:00 105 19 94/62 91 Room Air 10/29/21 22:44 36.5 10/29/21 22:39 103/62 10/29/21 22:00 112 18 97/60 100 Room Air 10/29/21 21:00 116 19 99/64 100 Room Air 10/29/21 20:00 100 Room Air 10/29/21 20:00 36.9 10/29/21 20:00 116 25 94/65 95 Room Air 10/29/21 19:00 116 30 91/61 100 Room Air 10/29/21 19:00 116 10/29/21 18:00 116 16 96/59 98 Room Air 10/29/21 17:00 116 24 92/60 99 Room Air I & O 10/30/21 07:00 Intake Total 730 ml Output Total 5850 ml Balance -5120 ml Capillary Refill : Less Than 3 Seconds General Appearance: No Apparent Distress HEENT: PERRL/EOMI Neck: Full Range of Motion Respiratory: Chest Non Tender, Decreased Breath Sounds Cardiovascular: Regular Rate, Rhythm Gastrointestinal: normal bowel sounds, soft Extremity: Normal Capillary Refill Neurologic/Psychiatric: Alert, Disoriented Skin: Jaundice Lymphatic: No Adenopathy Results Lab Laboratory Tests 10/29/21 17:49: Glucometer 147H 10/30/21 00:22: Glucometer 131H 10/30/21 04:05: White Blood Count 8.2, Red Blood Count 2.13L, Hemoglobin 8.9L, Hematocrit 25L, Mean Corpuscular Volume 117H, Mean Corpuscular Hemoglobin 42H, Mean Corpuscular Hemoglobin Concent 36, Red Cell Distribution Width 14.6H, Platelet Count 28*L, Mean Platelet Volume 12.6H, Immature Granulocyte % (Auto) 1, Neutrophils (%) (Auto) 65, Lymphocytes (%) (Auto) 20, Monocytes (%) (Auto) 14H, Eosinophils (%) (Auto) 1, Basophils (%) (Auto) 0, Neutrophils # (Auto) 5.3, Lymphocytes # (Auto) 1.6, Monocytes # (Auto) 1.2H, Eosinophils # (Auto) 0.1, Basophils # (Auto) 0.0, Immature Granulocyte # (Auto) 0.0, Sodium Level 140, Potassium Level 3.4L, Chloride Level 103, Carbon Dioxide Level 25, Anion Gap 12, Blood Urea Nitrogen 70H, Creatinine 2.28H, Estimat Glomerular Filtration Rate 28, BUN/Creatinine Ratio 31, Glucose Level 127H, Calcium Level 7.0L, Corrected Calcium 8.7, Phosphorus Level 4.1, Magnesium Level 2.0, Total Bilirubin 2.2H, Aspartate Amino Transf (AST/SGOT) 76H, Alanine Aminotransferase (ALT/SGPT) 49, Alkaline Phosphatase 98, Total Protein 4.4L, Albumin 1.9L 10/30/21 11:24: Glucometer 151H Microbiology 10/20/21 MRSA Screen - Final, Complete MRSA not isolated 10/20/21 Gram Stain - Final, Complete 10/20/21 Wound Culture - Final, Complete Mixed Bacterial Layla Enterococcus species 10/20/21 Blood Culture - Final, Complete No growth Assessment/Plan Assessment/Plan Assess & Plan/Chief Complaint liver cirrhosis s/p lap cholecystectomy 10/04/21. likely end stage liver dz. will proceed with placement interrupted figure of 8 sutures across umbilical wound. low protein diet. Na and fluid restriction. cont spironolactone. continues to be hypotensive and tachycardic. will get CT chest/abd/pelvis. will proceed with paracentesis. looks more like DIC picture. pt a DNR-CC MAMTA ALBERT MD October 30, 2021 16:56
--- NOTE | 2021-10-30 16:57 | Progress Note - Cardiology ---
Cardiology SOAP Progress Note Subjective: No cp or palp or syncope Gen malaise present Objective: I&O/Vital Signs 10/30/21 10/30/21 10/30/21 10/30/21 05:00 06:00 07:00 07:00 Pulse 98 98 102 102 Resp 15 15 16 B/P (MAP) 92/55 85/54 89/56 Pulse Ox 96 94 95 O2 Delivery Room Air Room Air Room Air 10/30/21 10/30/21 10/30/21 10/30/21 07:27 08:00 08:00 09:00 Temp 36.2 Pulse 102 116 Resp 17 16 B/P (MAP) 94/55 100/65 Pulse Ox 97 97 99 O2 Delivery Room Air Room Air Room Air 10/30/21 10/30/21 10/30/21 10/30/21 10:00 10:33 11:00 11:37 Temp 36.2 Pulse 110 111 106 Resp 24 10 B/P (MAP) 97/64 109/62 95/60 Pulse Ox 100 100 O2 Delivery Room Air Room Air 10/30/21 10/30/21 10/30/21 10/30/21 11:57 12:00 13:00 13:00 Pulse 105 104 105 Resp 18 13 B/P (MAP) 96/61 106/65 Pulse Ox 97 96 100 O2 Delivery Room Air Room Air Room Air 10/30/21 10/30/21 10/30/21 10/30/21 14:00 15:00 16:00 16:00 Pulse 114 102 107 Resp 23 14 17 B/P (MAP) 128/70 101/62 103/62 Pulse Ox 99 100 97 100 O2 Delivery Room Air Room Air Room Air Room Air 10/30/21 16:00 Temp 36.0 10/30/21 00:00 Intake Total 330 ml Output Total 2175 ml Balance -1845 ml Weight (Pounds): 179 Weight (Ounces): 0.0 Weight (Calculated Kilograms): 81.948793 Constitutional: AAO x 3, well-developed, well-nourished Respiratory: other (diminished air entry especially at the bases) Cardiovascular: regular rate-rhythm, S1 and S2, systolic murmur (soft ABENA at card base) Gastrointestional: distended, other (peritoneal drain in place) Extremities: swelling (mod edema of all extremities) Neurologic/Psychiatric: oriented x 3, other (moves all limbs) Skin: No rash on exposed areas, No ulcerations on exposed areas Results/Procedures: Labs Laboratory Tests 10/29/21 17:49: Glucometer 147H 10/30/21 00:22: Glucometer 131H 10/30/21 04:05: White Blood Count 8.2, Red Blood Count 2.13L, Hemoglobin 8.9L, Hematocrit 25L, Mean Corpuscular Volume 117H, Mean Corpuscular Hemoglobin 42H, Mean Corpuscular Hemoglobin Concent 36, Red Cell Distribution Width 14.6H, Platelet Count 28*L, Mean Platelet Volume 12.6H, Immature Granulocyte % (Auto) 1, Neutrophils (%) (Auto) 65, Lymphocytes (%) (Auto) 20, Monocytes (%) (Auto) 14H, Eosinophils (%) (Auto) 1, Basophils (%) (Auto) 0, Neutrophils # (Auto) 5.3, Lymphocytes # (Auto) 1.6, Monocytes # (Auto) 1.2H, Eosinophils # (Auto) 0.1, Basophils # (Auto) 0.0, Immature Granulocyte # (Auto) 0.0, Sodium Level 140, Potassium Level 3.4L, Chloride Level 103, Carbon Dioxide Level 25, Anion Gap 12, Blood Urea Nitrogen 70H, Creatinine 2.28H, Estimat Glomerular Filtration Rate 28, BUN/Creatinine Ratio 31, Glucose Level 127H, Calcium Level 7.0L, Corrected Calcium 8.7, Phosphorus Level 4.1, Magnesium Level 2.0, Total Bilirubin 2.2H, Aspartate Amino Transf (AST/SGOT) 76H, Alanine Aminotransferase (ALT/SGPT) 49, Alkaline Phosphatase 98, Total Protein 4.4L, Albumin 1.9L 10/30/21 11:24: Glucometer 151H Microbiology 10/20/21 MRSA Screen - Final, Complete MRSA not isolated 10/20/21 Gram Stain - Final, Complete 10/20/21 Wound Culture - Final, Complete Mixed Bacterial Layla Enterococcus species 10/20/21 Blood Culture - Final, Complete No growth Laboratory Tests 10/29/21 03:55 10/30/21 04:05 A/P: Assessment: Acute on chronic hepatic failure, complicated by the following: * Sepsis and septic shock * Probable peritonitis following recent cholecystectomy - peritoneal drain in place * Generalized anasarca likely due to hypoproteinemia * 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 Normal global LV systolic function with an LVEF of approx 60%. Normal LVEDP. No significant MR. 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
[2021-10-31] MEDS: LACTATED RINGERS 1,000 ML IV SCH ×3 (00:07→06:46)
[2021-10-31] MEDS: NOREPINEPHRINE 16 MG in NS (IVPB) 234 ML IV SCH (03:02)
[2021-10-31 04:50] LABS: BASOPHILS % (AUTO) 0 % (0-10)
[2021-10-31 04:52] LABS: EOSINOPHILS # (AUTO) 0.1 10^3/uL (0.0-0.3); EOSINOPHILS % (AUTO) 1 % (0-10); HEMATOCRIT 27 % (40-54); HEMOGLOBIN 9.6 g/dL (13.3-17.7); LYMPHOCYTES # (AUTO) 1.6 10^3/uL (1.0-4.0); LYMPHOCYTES % (AUTO) 15 % (12-44); MEAN CORPUSCULAR HEMOGLOBIN 42 pg (25-34); MEAN CORPUSCULAR HGB CONC 36 g/dL (32-36); MEAN CORPUSCULAR VOLUME 116 fL (80-99); MEAN PLATELET VOLUME 12.4 fL (9.0-12.2); MONOCYTES # (AUTO) 1.5 10^3/uL (0.0-1.0); MONOCYTES % (AUTO) 15 % (0-12); NEUTROPHILS # (AUTO) 7.1 10^3/uL (1.8-7.8); NEUTROPHILS % (AUTO) 68 % (42-75); WHITE BLOOD COUNT 10.3 10^3/uL (4.3-11.0)
[2021-10-31 04:53] LABS: PLATELET COUNT 38 10^3/uL (130-400)
[2021-10-31 05:01] LABS: POTASSIUM 3.1 MMOL/L (3.6-5.0)
[2021-10-31 05:02] LABS: CALCIUM 7.3 MG/DL (8.5-10.1)
[2021-10-31 05:04] LABS: TOTAL PROTEIN 4.8 GM/DL (6.4-8.2)
[2021-10-31 05:05] LABS: BILIRUBIN,TOTAL 2.4 MG/DL (0.1-1.0)
[2021-10-31 05:07] LABS: CREATININE SERUM 1.91 MG/DL (0.60-1.30); PHOSPHORUS 3.9 MG/DL (2.3-4.7)
[2021-10-31 05:10] LABS: MAGNESIUM 1.9 MG/DL (1.6-2.4)
[2021-10-31] MEDS ORDERED: POTASSIUM CL 10MEQ/50ML IVPB 50 ML IV SCH (06:00)
[2021-10-31] MEDS ORDERED: MAGNESIUM 1 GM/100 ML IVPB 100 ML IV SCH (06:00)
[2021-10-31] MEDS ORDERED: KCL 20 MEQ TAB (K-DUR) PO SCH (06:00)
[2021-10-31] MEDS: THIAMINE 100 MG (VITAMIN B-1) TAB PO SCH (06:47)
[2021-10-31] MEDS: VASOPRESSIN INJECTION 20 UNIT in NS (IVPB) 100 ML IV SCH (07:08)
[2021-10-31] MEDS ORDERED: KCL 20 MEQ TAB (K-DUR) PO ONE (08:00)
--- NOTE | 2021-10-31 08:19 | Progress Note - Hospitalist ---
Subjective HPI/CC On Admission Date Seen by Provider: October 31, 2021 Patient is 81-year-old male past medical history of cirrhosis, hypertension, and recent cholecystectomy who presented to the emergency room due to drainage from surgical wounds and low blood pressure. He is a very poor historian but per the ER note he also complained of nausea and decreased appetite. He told me his surgery was 2 years ago though records reveal it was much more recent than that (10/04). He does not complain of any of this to me and states he is feeling very well. When asked why he came to the hospital then if he was feeling well he states because his sister is a nurse. Reviewing records reveals he was seen in the emergency department last week for drainage from surgical incisions and a suture was placed. He saw Dr. ALBERT's nurse practitioner on October 17 for removal. Since then he has continued to have drainage. He also continues to drink 1-2 glasses of wine a day. Subjective/Events-last exam Pt reports doing well. Asks about going home again. We discussed the reasons why I am unable to discharge him as he is still on two pressors. He just shrugs. Objective Exam Vital Signs Vital Signs Date Time Temp Pulse Resp B/P (MAP) Pulse Ox O2 Delivery O2 Flow Rate FiO2 10/31/21 07:58 36.6 10/31/21 07:08 105 97/65 10/31/21 06:00 20 98 Room Air 10/30/21 19:43 Capillary Refill : Less Than 3 Seconds General Appearance: No Apparent Distress, Chronically ill Respiratory: Lungs Clear, No Respiratory Distress Cardiovascular: No Murmur, Tachycardia Gastrointestinal: Distended; No Tenderness Neurologic/Psychiatric: Alert, Oriented x3 Results/Procedures Lab Laboratory Tests 10/31/21 04:41 Patient resulted labs reviewed. 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
--- NOTE | 2021-10-31 08:24 | Progress Note - Cardiology ---
Cardiology SOAP Progress Note Subjective: Lying in bed States he wants to go home No c/o CP, SOB or palpitations Objective: I&O/Vital Signs 10/30/21 10/30/21 10/30/21 10/30/21 21:00 21:42 22:00 23:00 Pulse 105 111 105 106 Resp 17 14 15 B/P (MAP) 92/61 100/62 86/54 89/57 Pulse Ox 94 99 96 O2 Delivery Room Air Room Air Room Air 10/31/21 10/31/21 10/31/21 10/31/21 00:00 00:00 01:00 01:00 Pulse 98 101 101 Resp 20 17 B/P (MAP) 96/61 86/56 Pulse Ox 98 97 985 O2 Delivery Room Air Room Air Room Air 10/31/21 10/31/21 10/31/21 10/31/21 02:00 03:00 04:00 04:00 Pulse 103 109 103 Resp 13 20 16 B/P (MAP) 93/72 90/55 90/53 Pulse Ox 96 97 93 100 O2 Delivery Room Air Room Air Room Air Room Air 10/31/21 10/31/21 10/31/21 10/31/21 04:15 05:00 06:00 07:00 Temp 36.3 Pulse 109 105 104 Resp 20 20 B/P (MAP) 103/60 108/68 Pulse Ox 96 98 O2 Delivery Room Air Room Air 10/31/21 10/31/21 07:08 07:58 Temp 36.6 Pulse 105 B/P (MAP) 97/65 10/31/21 00:00 Intake Total 600 ml Output Total 1600 ml Balance -1000 ml Weight (Pounds): 179 Weight (Ounces): 0.0 Weight (Calculated Kilograms): 81.917700 Constitutional: AAO x 3, well-developed, well-nourished Respiratory: other (diminished air entry especially at the bases) Cardiovascular: regular rate-rhythm, S1 and S2, systolic murmur (soft ABENA at card base) Gastrointestional: distended, other (peritoneal drain in place) Extremities: swelling (mod edema of all extremities) Neurologic/Psychiatric: oriented x 3, other (moves all limbs) Skin: No rash on exposed areas, No ulcerations on exposed areas; other (multiple areas of ecchymosis to torso) Results/Procedures: Labs Laboratory Tests 10/30/21 11:24: Glucometer 151H 10/30/21 18:39: Glucometer 176H 10/31/21 00:25: Glucometer 176H 10/31/21 04:41: White Blood Count 10.3, Red Blood Count 2.29L, Hemoglobin 9.6L, Hematocrit 27L, Mean Corpuscular Volume 116H, Mean Corpuscular Hemoglobin 42H, Mean Corpuscular Hemoglobin Concent 36, Red Cell Distribution Width 14.7H, Platelet Count 38*L, Mean Platelet Volume 12.4H, Immature Granulocyte % (Auto) 1, Neutrophils (%) (Auto) 68, Lymphocytes (%) (Auto) 15, Monocytes (%) (Auto) 15H, Eosinophils (%) (Auto) 1, Basophils (%) (Auto) 0, Neutrophils # (Auto) 7.1, Lymphocytes # (Auto) 1.6, Monocytes # (Auto) 1.5H, Eosinophils # (Auto) 0.1, Basophils # (Auto) 0.0, Immature Granulocyte # (Auto) 0.1, Percent Immature Platelet Fraction 9.2H, So dium Level 138, Potassium Level 3.1L, Chloride Level 100, Carbon Dioxide Level 26, Anion Gap 12, Blood Urea Nitrogen 65H, Creatinine 1.91H, Estimat Glomerular Filtration Rate 35, BUN/Creatinine Ratio 34, Glucose Level 142H, Calcium Level 7.3L, Corrected Calcium 8.9, Phosphorus Level 3.9, Magnesium Level 1.9, Total Bilirubin 2.4H, Aspartate Amino Transf (AST/SGOT) 83H, Alanine Aminotransferase (ALT/SGPT) 50, Alkaline Phosphatase 99, Total Protein 4.8L, Albumin 2.0L Microbiology 10/20/21 MRSA Screen - Final, Complete MRSA not isolated 10/20/21 Gram Stain - Final, Complete 10/20/21 Wound Culture - Final, Complete Mixed Bacterial Layla Enterococcus species 10/20/21 Blood Culture - Final, Complete No growth Laboratory Tests 10/30/21 04:05 10/31/21 04:41 A/P: Assessment: Acute on chronic hepatic failure, complicated by the following: * Sepsis and septic shock * Probable peritonitis following recent cholecystectomy - peritoneal drain in place * Generalized anasarca likely due to hypoproteinemia * 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 Normal global LV systolic function with an LVEF of approx 60%. Normal LVEDP. No significant MR. 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
[2021-10-31] MEDS: FOLIC ACID 1 MG TAB PO SCH (08:44)
[2021-10-31] MEDS: PANTOPRAZOLE 40 MG (PROTONIX) VIAL IV SCH (08:45)
[2021-10-31] MEDS: MIDODRINE 10 MG (PROAMATINE) TAB PO SCH ×2 (08:45→13:16)
--- NOTE | 2021-10-31 09:14 | Progress Note - Cardiology ---
Cardiology SOAP Progress Note Subjective: Gen malaise and weakness present No cp or palp or syncope No n/v Objective: I&O/Vital Signs 10/30/21 10/30/21 10/30/21 10/31/21 21:42 22:00 23:00 00:00 Pulse 111 105 106 Resp 14 15 B/P (MAP) 100/62 86/54 89/57 Pulse Ox 99 96 98 O2 Delivery Room Air Room Air Room Air 10/31/21 10/31/21 10/31/21 10/31/21 00:00 01:00 01:00 02:00 Pulse 98 101 101 103 Resp 20 17 13 B/P (MAP) 96/61 86/56 93/72 Pulse Ox 97 985 96 O2 Delivery Room Air Room Air Room Air 10/31/21 10/31/21 10/31/21 10/31/21 03:00 04:00 04:00 04:15 Temp 36.3 Pulse 109 103 Resp 20 16 B/P (MAP) 90/55 90/53 Pulse Ox 97 93 100 O2 Delivery Room Air Room Air Room Air 10/31/21 10/31/21 10/31/21 10/31/21 05:00 06:00 07:00 07:00 Pulse 109 105 104 107 Resp 20 20 25 B/P (MAP) 103/60 108/68 97/65 Pulse Ox 96 98 100 O2 Delivery Room Air Room Air Room Air 10/31/21 10/31/21 10/31/21 07:08 07:58 08:00 Temp 36.6 Pulse 105 105 Resp 15 B/P (MAP) 97/65 100/54 Pulse Ox 94 O2 Delivery Room Air 10/31/21 00:00 Intake Total 600 ml Output Total 1600 ml Balance -1000 ml Weight (Pounds): 179 Weight (Ounces): 0.0 Weight (Calculated Kilograms): 81.122175 Constitutional: AAO x 3, well-developed, well-nourished Respiratory: other (diminished air entry especially at the bases) Cardiovascular: regular rate-rhythm, S1 and S2, systolic murmur (soft ABENA at card base) Gastrointestional: distended, other (peritoneal drain in place) Extremities: swelling (mod edema of all extremities) Neurologic/Psychiatric: oriented x 3, other (moves all limbs) Skin: No rash on exposed areas, No ulcerations on exposed areas; other (multiple areas of ecchymosis to torso) Results/Procedures: Labs Laboratory Tests 10/30/21 11:24: Glucometer 151H 10/30/21 18:39: Glucometer 176H 10/31/21 00:25: Glucometer 176H 10/31/21 04:41: White Blood Count 10.3, Red Blood Count 2.29L, Hemoglobin 9.6L, Hematocrit 27L, Mean Corpuscular Volume 116H, Mean Corpuscular Hemoglobin 42H, Mean Corpuscular Hemoglobin Concent 36, Red Cell Distribution Width 14.7H, Platelet Count 38*L, Mean Platelet Volume 12.4H, Immature Granulocyte % (Auto) 1, Neutrophils (%) (Auto) 68, Lymphocytes (%) (Auto) 15, Monocytes (%) (Auto) 15H, Eosinophils (%) (Auto) 1, Basophils (%) (Auto) 0, Neutrophils # (Auto) 7.1, Lymphocytes # (Auto) 1.6, Monocytes # (Auto) 1.5H, Eosinophils # (Auto) 0.1, Basophils # (Auto) 0.0, Immature Granulocyte # (Auto) 0.1, Percent Immature Platelet Fraction 9.2H, Sodium Level 138, Potassium Level 3.1L, Chloride Level 100, Carbon Dioxide Level 26, Anion Gap 12, Blood Urea Nitrogen 65H, Creatinine 1.91H, Estimat Glomerular Filtration Rate 35, BUN/Creatinine Ratio 34, Glucose Level 142H, Calcium Level 7.3L, Corrected Calcium 8.9, Phosphorus Level 3.9, Magnesium Level 1.9, Total Bilirubin 2.4H, Aspartate Amino Transf (AST/SGOT) 83H, Alanine Aminotransferase (ALT/SGPT) 50, Alkaline Phosphatase 99, Total Protein 4.8L, Albumin 2.0L Microbiology 10/20/21 MRSA Screen - Final, Complete MRSA not isolated 10/20/21 Gram Stain - Final, Complete 10/20/21 Wound Culture - Final, Complete Mixed Bacterial Layla Enterococcus species 10/20/21 Blood Culture - Final, Complete No growth Laboratory Tests 10/30/21 04:05 10/31/21 04:41 A/P: Assessment: Acute on chronic hepatic failure, complicated by the following: * Sepsis and septic shock * Probable peritonitis following recent cholecystectomy - peritoneal drain in place * Generalized anasarca likely due to hypoproteinemia * 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 Normal global LV systolic function with an LVEF of approx 60%. Normal LVEDP. No significant MR. 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 D/c bicarb in iv * Management of sepsis per medical/surgical/eICU services * End stage liver dz with DIC - management per medical/surgical services * Shelter prognosis appears poor * Replace electrolytes DILSHAD MÁRQUEZ MD FACP FAC [facility] October 31, 2021 09:14
--- NOTE | 2021-10-31 09:22 | Tele-ICU Progress Note ---
Subjective Date Seen by a Provider: October 31, 2021 Time Seen by a Provider: 08:10 Subjective/Events-last exam This virtual visit was conducted using real time audio/video. Thank you for asking us to see this patient for sepsis. Paracentesis catheter placed 10/27/21. Copious output. S/B Hem. PE: VSS. O2 sat 100% on RA HEENT: No obvious masses, adenopathy or JVD. Chest: clear to auscultation. CV: RRR S1 S2 No murmur or added sounds. Abd: Non-tender. Bowel sounds Y. : Unremarkable. Lara Y. SUPPORT TEACHER/psychiatric: Grossly intact. No obvious focal findings. Extremities: 1-2+ edema. Capillary refill < 3 seconds. Skin: unremarkable. Results: Elevated BUN 65, Creat 1.91. Decreased Hb 8.4, plts 28K., Alb 1.91. CXR: clear. Available chart/ vitals / labs / images reviewed. Video assessment done using teleICU camera, rest of exam as per RN. A/P: Critical Care: critically ill patient. Cont.pressors., SCDs, thiamine, folate, bicarb drip, midodrine. Wean pressors as norm. Replace K. Hem consult w low plts: Seen by Palliative care . Discussed with RN ANGELITO. Asked RN to reach out to eICU if any questions or concerns later. Time spent with patient/coordination of care with other health professionals (mins): 15 Sepsis Event Evaluation Height, Weight, BMI Height: 5'9.00" Weight: 179lbs. 0.0oz. 81.125320ha; 34.27 BMI Method: Exam Exam Patient acknowledged, consented, and participated in this virtual visit which was conducted using real time audio/video Vital Signs Date Time Temp Pulse Resp B/P (MAP) Pulse Ox O2 Delivery O2 Flow Rate FiO2 10/31/21 09:00 114 13 86/64 98 Room Air 10/31/21 08:00 105 15 100/54 94 Room Air 10/31/21 07:58 36.6 10/31/21 07:08 105 97/65 10/31/21 07:00 107 25 97/65 100 Room Air 10/31/21 07:00 104 10/31/21 06:00 105 20 108/68 98 Room Air 10/31/21 05:00 109 20 103/60 96 Room Air 10/31/21 04:15 36.3 10/31/21 04:00 100 Room Air 10/31/21 04:00 103 16 90/53 93 Room Air 10/31/21 03:00 109 20 90/55 97 Room Air 10/31/21 02:00 103 13 93/72 96 Room Air 10/31/21 01:00 101 17 86/56 985 Room Air 10/31/21 01:00 101 10/31/21 00:00 98 20 96/61 97 Room Air 10/31/21 00:00 98 Room Air 10/30/21 23:00 106 15 89/57 96 Room Air 10/30/21 22:00 105 14 86/54 99 Room Air 10/30/21 21:42 111 100/62 10/30/21 21:00 105 17 92/61 94 Room Air 10/30/21 20:00 36.8 10/30/21 20:00 104 22 93/56 100 Room Air 10/30/21 20:00 100 Room Air 10/30/21 19:43 111 10 94/65 100 Room Air 10/30/21 19:00 116 18 104/61 98 Room Air 10/30/21 19:00 120 10/30/21 18:00 114 14 99/63 98 Room Air 10/30/21 17:00 110 17 101/64 98 Room Air 10/30/21 16:00 36.0 10/30/21 16:00 107 17 103/62 100 Room Air 10/30/21 16:00 97 Room Air 10/30/21 15:00 102 14 101/62 100 Room Air 10/30/21 14:00 114 23 128/70 99 Room Air 10/30/21 13:00 105 13 106/65 100 Room Air 10/30/21 13:00 104 10/30/21 12:00 105 18 96/61 96 Room Air 10/30/21 11:57 97 Room Air 10/30/21 11:37 36.2 10/30/21 11:00 106 10 95/60 100 Room Air 10/30/21 10:33 111 109/62 10/30/21 10:00 110 24 97/64 100 Room Air I & O 10/31/21 07:00 Intake Total 2851 ml Output Total 1975 ml Balance 876 ml Height & Weight Height: 5'9.00" Weight: 179lbs. 0.0oz. 81.300744wi; 34.27 BMI Method: General Appearance: No Apparent Distress, Chronically ill HEENT: PERRL/EOMI Neck: Full Range of Motion Respiratory: Lungs Clear, No Respiratory Distress Cardiovascular: No Murmur, Tachycardia Capillary Refill: Less Than 3 Seconds Peripheral Pulses: 2+ Radial Pulses (R), 2+ Radial Pulses (L) Gastrointestinal: normal bowel sounds, soft Extremity: Normal Capillary Refill Neurologic/Psychiatric: Alert, Oriented x3 Skin: Jaundice Lymphatic: No Adenopathy Results Lab Laboratory Tests 10/30/21 04:05 10/31/21 04:41 Assessment/Plan Assessment/Plan See free text. Critical Care: Critically Ill Patient JOHN BRISENO MD October 31, 2021 09:22
--- NOTE | 2021-10-31 09:35 | Physical Therapy Daily Note ---
PT Daily Note-Current Subjective Patient in bed pre tx, agrees to PT, has no complaints of pain. Appearance Patient in recliner post tx with nurse call, phone, tray, chair alarm on. Mental Status Patient Orientation: Person, Confused Attachments: Drains, Lara Catheter, IV Transfers SCALE: Activities may be completed with or without assistive devices. 6-Rumgpoouyp-ahsxkqt completes the activity by him/herself with no assistance from a helper. 5-Set-up or Clean-up Assistance-helper sets up or cleans up; patient completes activity. Amity assists only prior to or following the activity. 4-Supervision or Touching Assistance-helper provides verbal cues and/or touching/steadying and/or contact guard assistance as patient completes activity. Assistance may be provided throughout the activity or intermittently. 3-Partial/Moderate Assistance-helper does LESS THAN HALF the effort. Amity lifts, holds or supports trunk or limbs, but provides less than half the effort. 2-Substantial/Maximal Assistance-helper does MORE THAN HALF the effort. Amity lifts or holds trunk or limbs and provides more than half the effort. 8-Ernxylpok-nneobj does ALL the effort. Patient does none of the effort to complete the activity. Or, the assistance of 2 or more helpers is required for the patient to complete the activity. If activity was not attempted, code reason: 7-Patient Refused. 9-Not Applicable-not attempted and the patient did not perform the activity before the current illness, exacerbation or injury. 10-Not Attempted due to Environmental Limitations-(lack of equipment, weather restraints, etc.). 88-Not Attempted due to Medical Conditions or Safety Concerns. Roll Left & Right (QC): 3 Lying to Sitting/Side of Bed(Q: 3 Sit to Stand (QC): 3 Chair/Ozd-cp-Bsnys Xfer(QC): 3 min assist for supine to sit and sit to stand Gait Training Distance: 5' Gait Persons Needed: 1 Gait Assistive Device: FWW unsteady, had some knee buckling but not completely, cues for positioning before sitting Exercises Seated Therapy Exercises: Ankle pumps, Long arc quads Seated Reps: 20 Treatments bed mobility and transfers, ambulation, LE strengthening Assessment Current Status: Fair Progress slowly improving general mobility but still very unsteady and weak PT Half-Way Goals Necktie Turner Goals PT Necktie Turner Goals Time Frame: November 03, 2021 Roll Left & Right (QC): 6 Sit to Lying (QC): 6 Lying-Sitting on Side/Bed(QC): 6 Sit to Stand (QC): 6 Chair/Ejr-qu-Tlxyq Xfer(QC): 6 Toilet Transfer (QC): 6 Walk 10 feet (QC): 6 Walk 50ft with 2 Turns (QC): 6 Walk 150 ft (QC): 6 PT Plan Problem List Problem List: Activity Tolerance, Functional Strength, Safety, Balance, Gait, Transfer, Bed Mobility, ROM Treatment/Plan Treatment Plan: Continue Plan of Care Treatment Plan: Bed Mobility, Education, Functional Activity Ran, Functional Strength, Gait, Safety, Therapeutic Exercise, Transfers Treatment Duration: November 03, 2021 Frequency: 6 times per week Estimated Hrs Per Day: .25 hour per day Patient and/or Family Agrees t: Yes Safety Risks/Education Patient Education: Gait Training, Transfer Techniques, Correct Positioning, Safety Issues Teaching Recipient: Patient Teaching Methods: Demonstration, Discussion Response to Teaching: Reinforcement Needed Time/GCodes Time In: 914 Time Out: 924 Total Billed Treatment Time: 10 Total Billed Treatment 1 visit FA JOHN PAUL LEON PT October 31, 2021 09:35
[2021-10-31] MEDS ORDERED: ONDANSETRON 4 MG/2 ML (SDV) Z0FRAN IVP PRN (13:15)
[2021-10-31] MEDS ORDERED: LORazepam ORAL CONCENTRATE 2 MG/ML 30 ML (ATIVAN) PO PRN (13:15)
[2021-10-31] MEDS ORDERED: ARTIFICAL TEARS 0.4 ML UNIT DOSE (REFRESH PLUS) OU PRN (13:15)
[2021-10-31] MEDS ORDERED: BISACODYL 10 MG SUPP (DULCOLAX) PR PRN (13:15)
[2021-10-31] MEDS ORDERED: RT-ALBUTEROL/IPRATROPIUM 3 ML (DUONEB) VIAL INH PRN (13:15)
[2021-10-31] MEDS ORDERED: morphine (ROXINOL) 10 MG/0.5 ML oral conc 0.5 ML PO PRN (13:15)
[2021-10-31] MEDS ORDERED: PROMETHAZINE INJ 25 MG/ML (PHENERGAN) AMP IVP PRN (13:15)
[2021-10-31] MEDS ORDERED: morphine INJ 4 MG/ML 1 ML (VIAL/SYRINGE) IV PRN (13:15)
[2021-10-31] MEDS ORDERED: SCOPOLAMINE 1.5 MG (TRANSDERM-SCOP) PATCH TOP SCH (13:15)
[2021-10-31] MEDS ORDERED: morphine IMMEDIATE RELEASE 15 MG TABLET PO PRN (13:15)
[2021-10-31] MEDS ORDERED: ACETAMINOPHEN 650 MG SUPP (TYLENOL) PR PRN (13:15)
[2021-10-31] MEDS ORDERED: SALIVA STIMULANT MOUTH SPRAY (BIOTENE) 1.5 OZ MM PRN (13:15)
[2021-10-31] MEDS ORDERED: LORazepam INJ 2 MG/ML (ATIVAN) VIAL IVP PRN (13:15)
--- NOTE | 2021-10-31 14:45 | Progress Note ---
Subjective Date Seen by a Provider: October 31, 2021 Time Seen by a Provider: 14:00 Subjective/Events-last exam clinical status unchanged. liver failure and hepatorenal syndrome. Objective Exam Vital Signs Date Time Temp Pulse Resp B/P (MAP) Pulse Ox O2 Delivery O2 Flow Rate FiO2 10/31/21 13:00 116 22 86/57 92 Room Air 10/31/21 13:00 116 10/31/21 12:00 99 Room Air 10/31/21 12:00 122 34 89/59 94 Room Air 10/31/21 11:57 36.0 10/31/21 11:00 124 27 84/67 97 Room Air 10/31/21 10:00 120 22 92/61 96 Room Air 10/31/21 09:00 114 13 86/64 98 Room Air 10/31/21 08:00 105 15 100/54 94 Room Air 10/31/21 08:00 99 Room Air 10/31/21 07:58 36.6 10/31/21 07:08 105 97/65 10/31/21 07:00 107 25 97/65 100 Room Air 10/31/21 07:00 104 10/31/21 06:00 105 20 108/68 98 Room Air 10/31/21 05:00 109 20 103/60 96 Room Air 10/31/21 04:15 36.3 10/31/21 04:00 100 Room Air 10/31/21 04:00 103 16 90/53 93 Room Air 10/31/21 03:00 109 20 90/55 97 Room Air 10/31/21 02:00 103 13 93/72 96 Room Air 10/31/21 01:00 101 17 86/56 985 Room Air 10/31/21 01:00 101 10/31/21 00:00 98 20 96/61 97 Room Air 10/31/21 00:00 98 Room Air 10/30/21 23:00 106 15 89/57 96 Room Air 10/30/21 22:00 105 14 86/54 99 Room Air 10/30/21 21:42 111 100/62 10/30/21 21:00 105 17 92/61 94 Room Air 10/30/21 20:00 36.8 10/30/21 20:00 104 22 93/56 100 Room Air 10/30/21 20:00 100 Room Air 10/30/21 19:43 111 10 94/65 100 Room Air 10/30/21 19:00 116 18 104/61 98 Room Air 10/30/21 19:00 120 10/30/21 18:00 114 14 99/63 98 Room Air 10/30/21 17:00 110 17 101/64 98 Room Air 10/30/21 16:00 36.0 10/30/21 16:00 107 17 103/62 100 Room Air 10/30/21 16:00 97 Room Air 10/30/21 15:00 102 14 101/62 100 Room Air I & O 10/31/21 07:00 Intake Total 2851 ml Output Total 1975 ml Balance 876 ml Capillary Refill : Less Than 3 Seconds General Appearance: No Apparent Distress HEENT: PERRL/EOMI Neck: Full Range of Motion Respiratory: Decreased Breath Sounds Cardiovascular: Regular Rate, Rhythm Gastrointestinal: normal bowel sounds, non tender, soft Extremity: Normal Capillary Refill Neurologic/Psychiatric: Alert, Disoriented Skin: Normal Color Lymphatic: No Adenopathy Results Lab Laboratory Tests 10/30/21 18:39: Glucometer 176H 10/31/21 00:25: Glucometer 176H 10/31/21 04:41: White Blood Count 10.3, Red Blood Count 2.29L, Hemoglobin 9.6L, Hematocrit 27L, Mean Corpuscular Volume 116H, Mean Corpuscular Hemoglobin 42H, Mean Corpuscular Hemoglobin Concent 36, Red Cell Distribution Width 14.7H, Platelet Count 38*L, Mean Platelet Volume 12.4H, Immature Granulocyte % (Auto) 1, Neutrophils (%) (Auto) 68, Lymphocytes (%) (Auto) 15, Monocytes (%) (Auto) 15H, Eosinophils (%) (Auto) 1, Basophils (%) (Auto) 0, Neutrophils # (Auto) 7.1, Lymphocytes # (Auto) 1.6, Monocytes # (Auto) 1.5H, Eosinophils # (Auto) 0.1, Basophils # (Auto) 0.0, Immature Granulocyte # (Auto) 0.1, Percent Immature Platelet Fraction 9.2H, Sodium Level 138, Potassium Level 3.1L, Chloride Level 100, Carbon Dioxide Level 26, Anion Gap 12, Blood Urea Nitrogen 65H, Creatinine 1.91H, Estimat Glomerular Filtration Rate 35, BUN/Creatinine Ratio 34, Glucose Level 142H, Calcium Level 7.3L, Corrected Calcium 8.9, Phosphorus Level 3.9, Magnesium Level 1.9, Total Bilirubin 2.4H, Aspartate Amino Transf (AST/SGOT) 83H, Alanine Aminotransferase (ALT/SGPT) 50, Alkaline Phosphatase 99, Total Protein 4.8L, Albumin 2.0L 10/31/21 11:44: Glucometer 222H Microbiology 10/20/21 MRSA Screen - Final, Complete MRSA not isolated 10/20/21 Gram Stain - Final, Complete 10/20/21 Wound Culture - Final, Complete Mixed Bacterial Layla Enterococcus species 10/20/21 Blood Culture - Final, Complete No growth Assessment/Plan Assessment/Plan Assess & Plan/Chief Complaint liver cirrhosis s/p lap cholecystectomy 10/04/21. likely end stage liver dz. will proceed with placement interrupted figure of 8 sutures across umbilical wound. low protein diet. Na and fluid restriction. cont spironolactone. continues to be hypotensive and tachycardic. will get CT chest/abd/pelvis. will proceed with paracentesis. looks more like DIC picture. pt a DNR-CC MAMTA ALBERT MD October 31, 2021 14:45
[2021-11-01] MEDS ORDERED: CYCL5TAB PO (09:07)
--- NOTE | 2021-11-01 09:11 | Discharge Inst-Simple/Standard ---
Discharge Inst-Standard Patient Instructions/Follow Up Plan of Care/Instructions/FU: Please continue to take your medications as written. Please follow up with your primary care doctor and hospice to follow up this hospital stay. Activity as Tolerated: Yes Discharge Diet: No Restrictions Return to The Hospital For: Uncontrolled pain, shortness of breath, if you feel you are getting worse without relief. MILADIS COLLINS MD November 01, 2021 09:11
--- NOTE | 2021-11-01 09:12 | Discharge Summary ---
Diagnosis/Chief Complaint Date of Admission Oct 20, 2021 at 17:30 Date of Discharge Discharge Date: November 01, 2021 Admission Diagnosis Sepsis Primary Care No,Local Physician Discharge Diagnosis (1) Septic shock Status: Acute (2) DIC (disseminated intravascular coagulation) Status: Acute (3) Severe sepsis Status: Acute (4) Abdominal infection Status: Acute (5) S/P cholecystectomy Status: Chronic (6) End-stage liver disease Status: Acute (7) Poor prognosis Status: Acute (8) Hypotension Status: Acute Discharge Summary Discharge Physical Exam Allergies: Coded Allergies: No Known Drug Allergies (Unverified , 10/04/21) Vitals & I&Os Vital Signs Date Time Temp Pulse Resp B/P (MAP) Pulse Ox O2 Delivery O2 Flow Rate FiO2 11/01/21 12:36 37.3 87 18 141/64 96 Room Air 11/01/21 10:33 0.00 General Appearance: No Apparent Distress, Chronically ill Cardiovascular: Regular Rate, Rhythm, No Murmur Gastrointestinal: Distended Hospital Course Patient was admitted to the hospital secondary to septic shock from SBP with acutely decompensated cirrhosis and end-stage liver disease. He was treated with IV antibiotics and required pressors. Surgery was consulted and placed a peritoneal drain. Despite many days of IV antibiotics and multiple vasopressors he was unable to be weaned off vasoactive medicines. Multiple discussions were had with both the patient and his regarding his prognosis. They were offered multiple options including transfer to [place] for continued vasopressor weaning to home with hospice. After discussion with family they elected to transition to comfort care and go home with hospice [facility]. Labs (last 24 hrs) Laboratory Tests 10/31/21 17:36: Glucometer 149H Microbiology 10/20/21 MRSA Screen - Final, Complete MRSA not isolated 10/20/21 Gram Stain - Final, Complete 10/20/21 Wound Culture - Final, Complete Mixed Bacterial Layla Enterococcus species 10/20/21 Blood Culture - Final, Complete No growth Patient resulted labs reviewed. Imaging: Reviewed Imaging Report Discussion & Recommendations Discharge Planning: >30 minutes discharge planning Discharge Home Medications: Active Scripts Active Cyclobenzaprine HCl 5 Mg Tablet 5 Mg PO TID Reported l-Glutamine (Glutamine) 500 Mg Capsule 500 Mg PO DAILY Vitamin B Complex 1 Each Capsule 1 Each PO DAILY Milk Thistle 175 Mg Tablet 375 Mg PO DAILY Instructions to patient/family Please see electronic discharge instructions given to patient. MILADIS COLLINS MD November 01, 2021 09:12
[2021-11-01] MEDS ORDERED: ORPHENADRINE 60 MG/2 ML (NORFLEX) AMP (ED ONLY) IM ONE (09:15)
[2021-11-01] MEDS ORDERED: CYCLOBENZAPRINE 10 MG (FLEXERIL) TAB PO PRN (09:15)
[2021-11-01 12:36] VITALS: BP 141/64
[2021-11-03] MEDS ORDERED: SCOPOLAMINE PATCH REMOVAL TP SCH (13:14)
== END 2021-11-01 12:30 | disposition hospice, home (50) | DRG 871 ==
LOC: EDUNIT# 14:29 → ER 14:32 → ICU 17:30 → 4TH 10-31 17:48
PROVIDERS: ADMIT Family Medicine; ATTEND Internal Medicine
PROC: 0W9G30Z Drainage of Peritoneal Cavity with Drainage Device, Percutaneous Approach (ICD-10-PCS; principal; 2021-10-27)
DX: A41.81 Sepsis due to Enterococcus (principal); R65.21 Severe sepsis with septic shock; K65.2 Spontaneous bacterial peritonitis; K72.00 Acute and subacute hepatic failure without coma; K76.7 Hepatorenal syndrome; D65 Disseminated intravascular coagulation [defibrination syndrome]; R18.8 Other ascites; E87.2 Acidosis; N17.9 Acute kidney failure, unspecified; K92.1 Melena; E72.20 Disorder of urea cycle metabolism, unspecified; Z66 Do not resuscitate; Z51.5 Encounter for palliative care; K72.10 Chronic hepatic failure without coma; K74.60 Unspecified cirrhosis of liver; F10.20 Alcohol dependence, uncomplicated; Y90.0 Blood alcohol level of less than 20 mg/100 ml; I10 Essential (primary) hypertension; E80.6 Other disorders of bilirubin metabolism; R74.01 Elevation of levels of liver transaminase levels; E77.8 Other disorders of glycoprotein metabolism; R60.1 Generalized edema; Z87.891 Personal history of nicotine dependence
CPT/HCPCS: 36415; 36569; 71045; 71260; 74176; 74178; 76937; 76942; 80053; 80320; 81000; 82140; 82805; 82947; 83605; 83735; 84100; 85007; 85025; 85027; 85379; 85384; 85610; 85730; 86141; 87040; 87070; 87081; 87205; 93005; 96361; 96365; 96366; 96375